=== PATIENT | male | born 1955 | race Caucasian/White ===

== ENCOUNTER 2018-06-11 14:30 | Emergency (ER) | payer OTHER ==
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
[2018-06-11 16:18] VITALS: TEMP 98.1
[2018-06-11 16:20] VITALS: BP 116/74; O2SAT 99
== END 2018-06-11 16:14 | disposition home or self-care (01) ==
LOC: ER 14:30
DX: M79.1 Myalgia (principal); V49.40XA Driver injured in collision with unspecified motor vehicles in traffic accident, initial encounter; Z91.030 Bee allergy status
CPT/HCPCS: 99281

== ENCOUNTER 2018-06-28 15:00 | Emergency (ER) | payer OTHER ==
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
[2018-06-28] MEDS ORDERED: HYDROCODONE/APAP 10/325 TAB ONE (16:40)
[2018-06-28 17:00] VITALS: TEMP 98.7; O2SAT 100
[2018-06-28 17:01] VITALS: BP 143/82
== END 2018-06-28 16:44 | disposition home or self-care (01) ==
LOC: ER 15:00
DX: S13.4XXA Sprain of ligaments of cervical spine, initial encounter (principal); S20.229A Contusion of unspecified back wall of thorax, initial encounter; V49.49XA Driver injured in collision with other motor vehicles in traffic accident, initial encounter; Y92.410 Unspecified street and highway as the place of occurrence of the external cause; J44.9 Chronic obstructive pulmonary disease, unspecified; I10 Essential (primary) hypertension
CPT/HCPCS: 70450; 71046; 72125; 99284

== ENCOUNTER 2018-08-06 16:26 | Observation (INO) | payer OTHER ==
--- NOTE | 2018-08-06 18:41 | RAD REPORT ---
EXAM DESCRIPTION: RAD - Chest Single View - 08/06/2018 6:35 pm CLINICAL HISTORY: lower extremity swelling Chest pain. COMPARISON: Chest Pa And Lat (2 Views) dated 06/28/2018; Chest Single View dated 10/06/2017; Chest Sin gle View dated 04/22/2016; Chest Single View dated 03/14/2016 FINDINGS: Portable technique limits examination quality. Mild interstitial pulmonary edema. The heart is normal size. No displaced fractures. IMPRESSION: Mild CHF versus volume overload pattern.
[2018-08-06 18:57] LABS: Absolute Lymphocytes (CBC) 0.8 K/uL (0.7-4.9); Absolute Monocytes 0.5 K/uL (0.1-1.3); Absolute Neutrophil 1.1 K/uL (1.8-8.0); Basophils % 1.2 % (0-1.3); Eosinophils % 5.2 % (0-4.4); Hematocrit 35.9 % (39.6-49.0); Lymphocytes % 29.6 % (15.3-44.8); MCH 28.6 pg (27.0-35.0); MCV 84.4 fL (80-100); MPV 8.4 fL (7.6-11.3); Monocytes % 20.3 % (3.3-12.3); RBC Red Blood Cell Count 4.26 M/uL (4.33-5.43)
[2018-08-06 18:58] LABS: Protime INR 1.04
--- NOTE | 2018-08-06 19:19 | RAD REPORT ---
EXAM DESCRIPTION: US - Extrem Venous W Compress Dhiraj - 08/06/2018 7:10 pm CLINICAL HISTORY: lower extremity swelling Bilateral leg edema and swelling. COMPARISON: No comparisons TECHNIQUE: Real-time sonographic interrogation of the left and right lower extremity deep venous sys tems was performed. FINDINGS: Normal compressibility, flow augmentation, phasic flow and spontaneous flow is identified in both the left and right lower extremity deep venous systems. IMPRESSION: No sonographic evidence of left or right lower extremity deep venous thrombosis.
[2018-08-06 19:26] LABS: ALT/SGPT 266 U/L (12-78); AST/SGOT 268 U/L (15-37); Albumin 3.2 g/dL (3.4-5.0); Alkaline Phosphatase 174 U/L (45-117); BUN Blood Urea Nitrogen 9 mg/dL (7-18); Bicarbonate 28 mmol/L (21-32); Bilirubin Direct 0.5 mg/dL (0-0.2); Bilirubin Total 0.8 mg/dL (0.2-1.0); Glucose Level 88 mg/dL (74-106); Magnesium 2.1 mg/dL (1.8-2.4); NT PRO-BNP 2801 pg/mL (<125); Potassium 4.1 mmol/L (3.5-5.1); Protein, Total 7.3 g/dL (6.4-8.2); Sodium Level 141 mmol/L (136-145); Troponin (Emerg Dept Use Only) < 0.02 ng/mL (0.0-0.045)
--- NOTE | 2018-08-06 20:55 | ER ---
Nurse's Notes [facility] Name: Chetan Case Age: 63 yrs Sex: Male : 1955 Arrival Date: 08/06/2018 Time: 16:31 Bed 27 Private MD: John Albright H Diagnosis: Pulmonary edema;Unspecified combined systolic (congestive) and diastolic (congestive) heart failure;Liver disease, unspecified Presentation: 08/06 16:44 Presenting complaint: Patient states: Swelling to bilateral lower legs that started aj yesterday morning with SOB. Patient appears drowsy in triage. Patient and his appear sedated. is falling asleep sitting up in triage while reading the newspaper. Transition of care: patient was not received from another setting of care. Onset of symptoms was August 05, 2018. Risk Assessment: Do you want to hurt yourself or someone else? Patient reports no desire to harm self or others. Initial Sepsis Screen: Does the patient meet any 2 criteria? No. Patient's initial sepsis screen is negative. Does the patient have a suspected source of infection? No. Patient's initial sepsis screen is negative. Care prior to arrival: None. 16:44 Method Of Arrival: Ambulatory aj 16:44 Acuity: OCHOA 3 aj Triage Assessment: 16:46 General: Appears in no apparent distress. comfortable, Behavior is calm, cooperative, aj appropriate for age, drowsy. Pain: Denies pain. Neuro: Level of Consciousness is awake, alert, obeys commands, Oriented to person, place, time, situation, Appropriate for age. Cardiovascular: Edema is 2+ to left ankle, left foot, right ankle and right foot. Respiratory: Airway is patent Respiratory effort is even, unlabored, Respiratory pattern is regular, symmetrical. Respiratory: Reports shortness of breath. Derm: Skin is intact, is healthy with good turgor, Skin is pink, warm \T\ dry. normal. Musculoskeletal: Swelling present in right leg and left leg. Historical: - Allergies: 16:46 Bees; aj - Home Meds: 16:46 finasteride 1 mg Oral tab [Active]; hydrocodone-acetaminophen 7.5-325 mg oral tab every aj 4-6 hours [Active]; inhaler [Active]; Multiple Vitamins Oral tab [Active]; pantoprazole 40 mg Oral TbEC 1 tab once daily [Active]; Xanax 0.5 mg Oral tab [Active]; - PMHx: 16:46 COPD; Hypertension; Chronic pain; aj - PSHx: 16:46 Ablation; aj - Immunization history:: Adult Immunizations up to date. - Social history:: Smoking status: Patient uses tobacco products, smokes one-half pack cigarettes per day. - Ebola Screening: : Patient negative for fever greater than or equal to 101.5 degrees Fahrenheit, and additional compatible Ebola Virus Disease symptoms Patient denies exposure to infectious person Patient denies travel to an Ebola-affected area in the 21 days before illness onset No symptoms or risks identified at this time. Screenin:03 Abuse screen: Denies threats or abuse. Denies injuries from another. Nutritional rv screening: No deficits noted. Tuberculosis screening: No symptoms or risk factors identified. Fall Risk None identified. Assessment: 17:01 General: Appears in no apparent distress. comfortable, Behavior is calm, cooperative, rv drowsy. Pain: Denies pain. Neuro: Level of Consciousness is awake, alert, obeys commands, Oriented to person, place, time, situation. Cardiovascular: Capillary refill < 3 seconds. Respiratory: Airway is patent. GI: No signs and/or symptoms were reported involving the gastrointestinal system. : No signs and/or symptoms were reported regarding the genitourinary system. EENT: No signs and/or symptoms were reported regarding the EENT system. Derm: Skin with poor turgor. Vital Signs: 16:46 BP 122 / 74; Pulse 61; Resp 20; Temp 97.9; Pulse Ox 96% on R/A; Weight 90.72 kg; Height aj 5 ft. 9 in. (175.26 cm); 18:35 BP 106 / 61; Pulse 86; Pulse Ox 96% on R/A; rv 22:54 BP 127 / 85; Pulse 56; Pulse Ox 99% on R/A; rv 16:46 Body Mass Index 29.53 (90.72 kg, 175.26 cm) aj ED Course: 16:31 Patient arrived in ED. mr 16:31 John Albright DO is Private Physician. mr 16:45 Triage completed. aj 16:46 Arm band placed on left wrist. Patient placed in waiting room, Patient notified of wait aj time. 17:03 Patient has correct armband on for positive identification. Placed in gown. Bed in low rv position. Call light in reach. Side rails up X2. Adult w/ patient. Pulse ox on. NIBP on. 17:45 Parminder Porras PA is PHCP. cp 17:45 Vipin Thomas MD is Attending Physician. cp 18:30 Inserted saline lock: 20 gauge in right forearm, using aseptic technique. Blood rv collected. 18:30 Initial lab(s) drawn, by me, sent to lab. EKG done, by ED staff, X-ray(s) taken. rv 18:33 X-ray completed. Portable x-ray completed in exam room. Patient tolerated procedure ag1 well. 18:34 XRAY Chest (1 view) In Process Unspecified. EDMS 19:07 Ultrasound completed. Patient tolerated well. sg3 19:10 US Extremity Venous W Compression Dhiraj In Process Unspecified. EDMS 20:05 AMMONIA Sent. rv 20:54 Keri Mathur MD is Hospitalizing Provider. cp 22:51 No provider procedures requiring assistance completed. Patient admitted, IV remains in rv place. intact. Administered Medications: 21:11 Drug: Lasix 20 mg Route: IVP; Site: right forearm; rv 22:51 Follow up: Response: No adverse reaction rv Outcome: 20:55 Decision to Hospitalize by Provider. cp 22:52 Admitted to Tele accompanied by [facility], via wheelchair, room 401, with chart, Report rv called to sahil 22:52 Condition: good 22:52 Instructed on the need for admit. 23:09 Patient left the ED. rv Signatures: Dispatcher [employer] EDMS Pattie Turpin, Hyun Pavon RN Reji Palomoley ag1 Parminder Porras PA PA cp Godinez, Sarah sg3 Brant Courtney RN RN rv
--- NOTE | 2018-08-06 20:56 | EDPHYS ---
Physician Documentation [facility] Name: Chetan Case Age: 63 yrs Sex: Male : 1955 Arrival Date: 08/06/2018 Time: 16:31 Bed 27 Private MD: John Albright H ED Physician Vipin Thomas HPI: 08/06 18:20 This 63 yrs old Male presents to ER via Ambulatory with complaints of Feet cp Swelling. 18:20 The patient has shortness of breath with light activity. cp 18:20 Onset: The symptoms/episode began/occurred gradually, and became worse yesterday. cp 18:20 Duration: The symptoms are continuous, and are steadily getting worse. cp Historical: - Allergies: 16:46 Bees; aj - Home Meds: 16:46 finasteride 1 mg Oral tab [Active]; hydrocodone-acetaminophen 7.5-325 mg oral tab every aj 4-6 hours [Active]; inhaler [Active]; Multiple Vitamins Oral tab [Active]; pantoprazole 40 mg Oral TbEC 1 tab once daily [Active]; Xanax 0.5 mg Oral tab [Active]; - PMHx: 16:46 COPD; Hypertension; Chronic pain; aj - PSHx: 16:46 Ablation; aj - Immunization history:: Adult Immunizations up to date. - Social history:: Smoking status: Patient uses tobacco products, smokes one-half pack cigarettes per day. - Ebola Screening: : Patient negative for fever greater than or equal to 101.5 degrees Fahrenheit, and additional compatible Ebola Virus Disease symptoms Patient denies exposure to infectious person Patient denies travel to an Ebola-affected area in the 21 days before illness onset No symptoms or risks identified at this time. ROS: 18:25 Constitutional: Negative for body aches, chills, fever, poor PO intake. cp 18:25 Eyes: Negative for injury, pain, redness, and discharge. cp 18:25 ENT: Negative for drainage from ear(s), ear pain, sore throat, difficulty swallowing, difficulty handling secretions. 18:25 Cardiovascular: Positive for edema, Negative for chest pain, palpitations. 18:25 Respiratory: Positive for shortness of breath, on exertion. Negative for cough, pleurisy, wheezing. 18:25 Abdomen/GI: Negative for abdominal pain, nausea, vomiting, and diarrhea, constipation, anorexia, black/tarry stool, rectal bleeding. 18:25 Skin: Negative for cellulitis, rash. 18:25 Neuro: Negative for altered mental status, headache, syncope, near syncope, weakness. 18:25 All other systems are negative. Exam: 18:33 Constitutional: The patient appears in no acute distress, alert, awake, cp non-diaphoretic, non-toxic, well developed, well nourished. 18:33 Head/Face: Normocephalic, atraumatic. Eyes: Pupils equal round and reactive to light, cp extra-ocular motions intact. Lids and lashes normal. Conjunctiva and sclera are non-icteric and not injected. Cornea within normal limits. Periorbital areas with no swelling, redness, or edema. ENT: Nares patent. No nasal discharge, no septal abnormalities noted. Tympanic membranes are normal and external auditory canals are clear. Oropharynx with no redness, swelling, or masses, exudates, or evidence of obstruction, uvula midline. Mucous membranes moist. 18:33 Chest/axilla: Inspection: normal, Palpation: is normal, no crepitus, no tenderness. 18:33 Cardiovascular: Rate: normal, Rhythm: regular, Pulses: Pulses are 2+ in right radial artery and left radial artery. Edema: pedal edema, that is moderate, ankle edema, that is moderate, JVD: is not appreciated. 18:33 Respiratory: the patient does not display signs of respiratory distress, Respirations: normal, no use of accessory muscles, no retractions, no splinting, no tachypnea, labored breathing, is not present, Breath sounds: decreased breath sounds, that are mild, are located in both bases, stridor, is not appreciated, wheezing: is not appreciated. 18:33 Abdomen/GI: Inspection: abdomen appears normal, Bowel sounds: active, all quadrants, Palpation: abdomen is soft and non-tender, in all quadrants, rebound tenderness, is not appreciated, voluntary guarding, is not appreciated, involuntary guarding, is not appreciated. 18:33 Skin: cellulitis, is not appreciated, no rash present. 18:33 Neuro: Orientation: to person, place \T\ time. Mentation: able to follow commands, slow to respond, Cerebellar function: is grossly normal, Motor: moves all fours, strength is normal, Sensation: no obvious gross deficits, Gait: is steady. 18:50 ECG was reviewed by the Attending Physician. cp Vital Signs: 16:46 BP 122 / 74; Pulse 61; Resp 20; Temp 97.9; Pulse Ox 96% on R/A; Weight 90.72 kg; Height aj 5 ft. 9 in. (175.26 cm); 18:35 BP 106 / 61; Pulse 86; Pulse Ox 96% on R/A; rv 22:54 BP 127 / 85; Pulse 56; Pulse Ox 99% on R/A; rv 16:46 Body Mass Index 29.53 (90.72 kg, 175.26 cm) aj MDM: 17:45 Patient medically screened. cp 19:00 Differential diagnosis: CHF exacerbation, Chronic Obstructive Pulmonary Disease cp Myocardial Infarction pneumonia, pulmonary edema, Unstable Angina liver failure. 20:50 Data reviewed: vital signs, nurses notes, lab test result(s), EKG, radiologic studies, cp plain films, ultrasound, and as a result, I will admit patient. 20:50 Test interpretation: by ED physician or midlevel provider: ECG, plain radiologic cp studies. 20:55 Physician consultation: Keri Mathur MD was contacted at 20:55, regarding admission, cp to the telemetry unit. patient's condition. 08/06 18:18 Order name: Basic Metabolic Panel; Complete Time: 19:45 cp 08/06 18:18 Order name: CBC with Diff; Complete Time: 19:45 cp 08/06 19:46 Interpretation: Normal except: WBC 2.5; RBC 4.26; HGB 12.2; HCT 35.9; MCV 84.4; RDW cp 15.8; MN% 20.3; EOSINOPHIL % 5.2; NEUT A 1.1. 08/06 18:18 Order name: LFT's; Complete Time: 19:45 cp 08/06 20:12 Interpretation: Normal except: AST 268; ALT 266; ALK 174; BILID 0.5; ALB 3.2; GLOB 4.1; cp A/G 0.8. 08/06 18:18 Order name: Magnesium; Complete Time: 19:45 cp 08/06 18:18 Order name: NT PRO-BNP; Complete Time: 19:45 cp 08/06 19:46 Interpretation: Abnormal: NT PRO-BNP 2801. cp 08/06 18:18 Order name: PT-INR; Complete Time: 19:45 cp 08/06 18:18 Order name: Troponin (emerg Dept Use Only); Complete Time: 19:45 cp 08/06 18:18 Order name: XRAY Chest (1 view); Complete Time: 19:45 cp 08/06 18:18 Order name: US Extremity Venous W Compression Dhiraj; Complete Time: 19:45 cp 08/06 19:47 Order name: ETOH Level cp 08/06 19:47 Order name: US Abdomen Limited cp 08/06 19:47 Order name: AMMONIA cp 08/06 19:47 Order name: Alcohol Serum/Plasma; Complete Time: 20:50 EDMS 08/06 19:47 Order name: Ammonia; Complete Time: 20:50 EDMS 08/06 18:18 Order name: EKG; Complete Time: 18:19 cp 08/06 18:18 Order name: Cardiac monitoring; Complete Time: 18:35 cp 08/06 18:18 Order name: EKG - Nurse/Tech; Complete Time: 18:35 cp 08/06 18:18 Order name: IV Saline Lock; Complete Time: 18:35 cp 08/06 18:18 Order name: Labs collected and sent; Complete Time: 18:35 cp 08/06 18:18 Order name: O2 Per Protocol; Complete Time: 18:35 cp 08/06 18:18 Order name: O2 Sat Monitoring; Complete Time: 18:35 cp 08/06 22:20 Order name: US; Complete Time: 22:26 EDMS EC:50 Rate is 51 beats/min. Rhythm is regular. AK interval is normal. QRS interval is normal. cp QT interval is normal. T waves are Inverted in lead V3. Interpreted by me. Reviewed by me. Administered Medications: 21:11 Drug: Lasix 20 mg Route: IVP; Site: right forearm; rv 22:51 Follow up: Response: No adverse reaction rv Disposition: 08/07 13:22 Co-signature as Attending Physician, Vipin Thomas MD I agree with the assessment and kdr plan of care. Disposition: 08/06/18 20:55 Hospitalization ordered by Keri Mathur for Inpatient Admission. Preliminary diagnosis are Pulmonary edema, Unspecified combined systolic (congestive) and diastolic (congestive) heart failure, Liver disease, unspecified. - Bed requested for Telemetry/MedSurg (Inpatient). - Status is Inpatient Admission. rv - Condition is Stable. - Problem is new. - Symptoms have improved. UTI on Admission? No Signatures: Dispatcher [employer] EDMS Barbara Dupont RN RN mw Myers, Amanda, RN RN aj Rittger, Kevin, MD MD kdr Page, Corey, PA PA cp Brant Courtney RN RN rv Corrections: (The following items were deleted from the chart) 08/06 20:55 20:55 Hospitalization Ordered by Keri Mathur MD for Inpatient Admission. Preliminary cp diagnosis is Pulmonary edema; Unspecified combined systolic (congestive) and diastolic (congestive) heart failure. Bed requested for Telemetry/MedSurg (Inpatient). Status is Inpatient Admission. Condition is Stable. Problem is new. Symptoms have improved. UTI on Admission? No. cp 21:25 20:55 08/06/2018 20:55 Hospitalization Ordered by Keri Mathur MD for Inpatient mw Admission. Preliminary diagnosis is Pulmonary edema; Unspecified combined systolic (congestive) and diastolic (congestive) heart failure; Liver disease, unspecified. Bed requested for Telemetry/MedSurg (Inpatient). Status is Inpatient Admission. Condition is Stable. Problem is new. Symptoms have improved. UTI on Admission? No. cp 23:09 21:25 08/06/2018 20:55 Hospitalization Ordered by Keri Mathur MD for Inpatient rv Admission. Preliminary diagnosis is Pulmonary edema; Unspecified combined systolic (congestive) and diastolic (congestive) heart failure; Liver disease, unspecified. Bed requested for Telemetry/MedSurg (Inpatient). Status is Inpatient Admission. Condition is Stable. Problem is new. Symptoms have improved. UTI on Admission? No. 08/07 02:17 08/06 18:20 Onset: The symptoms/episode began/occurred 2 week(s) ago, cp cp
[2018-08-06] MEDS ORDERED: FUROSEMIDE 20 MG/ 2ML VIAL ONE (21:11)
--- NOTE | 2018-08-06 22:19 | RAD REPORT ---
EXAM DESCRIPTION: US - Abdomen Exam Limited - 08/06/2018 10:08 pm CLINICAL HISTORY: elevated liver enzymes COMPARISON: ABDOMINAL EXAM LIMITED dated 03/26/2010 FINDINGS: The gallbladder demonstrates no gallstones. Gallbladder wall appears edematous and thicken ed measuring up to 13 mm. The common bile duct is normal measuring 4 mm. The liver demonstrates no findings of intrahepatic biliary dilatation. IMPRESSION: No gallstone is visualized. Thickened edematous gallbladder wall measuring up to 13 mm. This may be secondary to acalculous grover cystitis, hepatic dysfunction or hypoalbuminemia.
[2018-08-07] MEDS ORDERED: ONDANSETRON 4 MG/2 ML VIAL IV PRN (01:20)
[2018-08-07] MEDS ORDERED: CARISOPRODOL 350 MG TAB PO PRN (01:24)
[2018-08-07] MEDS ORDERED: ALBUTEROL INHALER 60 PUFF/8 GM IH PRN (01:24)
[2018-08-07] MEDS ORDERED: HYDROCODONE/APAP 10/325 TAB PO PRN (01:24)
[2018-08-07 01:56] VITALS: BMI 31.2
[2018-08-07 04:48] LABS: Absolute Lymphocytes (CBC) 1.1 K/uL (0.7-4.9); Absolute Monocytes 0.6 K/uL (0.1-1.3); Absolute Neutrophil 1.3 K/uL (1.8-8.0); Basophils % 1.4 % (0-1.3); Eosinophils % 6.4 % (0-4.4); Hematocrit 33.1 % (39.6-49.0); Lymphocytes % 32.2 % (15.3-44.8); MCH 28.4 pg (27.0-35.0); MCV 84.4 fL (80-100); MPV 8.2 fL (7.6-11.3); Monocytes % 19.1 % (3.3-12.3); RBC Red Blood Cell Count 3.92 M/uL (4.33-5.43)
[2018-08-07 05:04] LABS: ALT/SGPT 254 U/L (12-78); AST/SGOT 246 U/L (15-37); Albumin 3.2 g/dL (3.4-5.0); Alkaline Phosphatase 181 U/L (45-117); BUN Blood Urea Nitrogen 13 mg/dL (7-18); Bicarbonate 29 mmol/L (21-32); Bilirubin Total 0.9 mg/dL (0.2-1.0); Glucose Level 89 mg/dL (74-106); HDL Cholesterol 59 mg/dL (40-60); LDL Cholesterol, Calculated 49 (<130); Magnesium 2.1 mg/dL (1.8-2.4); NT PRO-BNP 2671 pg/mL (<125); Phosphorus 2.3 mg/dL (2.5-4.9); Potassium 3.7 mmol/L (3.5-5.1); Protein, Total 7.2 g/dL (6.4-8.2); Sodium Level 140 mmol/L (136-145); Troponin I < 0.02 ng/mL (0.0-0.045)
[2018-08-07 05:05] VITALS: O2SAT 98
[2018-08-07] MEDS ORDERED: POTASSIUM PHOS IN 0.9 % NACL 15 MMOL/250 ML BAG IV ONE (05:16)
[2018-08-07 05:35] LABS: RBC Red Blood Cell Count 4.09 M/uL (4.33-5.43)
[2018-08-07 06:13] LABS: Folic Acid, (Folate) 9.3 ng/mL (3.1-17.5)
[2018-08-07] MEDS: FUROSEMIDE 40 MG/4 ML VIAL IV SCH ×2 (06:29→09:13)
[2018-08-07 07:32] LABS: Urine Appearance CLEAR; Urine Bilirubin NEGATIVE (NEG); Urine Blood NEGATIVE (NEG); Urine Color YELLOW; Urine Glucose NEGATIVE (NEG); Urine Protein NEGATIVE (NEG)
[2018-08-07 07:38] LABS: Urine Microscopic Reflex NO UMIC
[2018-08-07 07:50] LABS: Blood Morphology Comment NOT SEEN (NOT SEEN); Platelet Estimate ADEQ
--- NOTE | 2018-08-07 08:33 | EKG ---
Test Date: 2018-08-07 Test Time: 00:28:16 Water Softener Installer: KEKE MEASUREMENT RESULTS: Intervals: Rate: 50 VT: 168 QRSD: 82 QT: 474 QTc: 432 [place]: P: 71 VT: 168 QRS: 90 T: 42 INTERPRETIVE STATEMENTS: Sinus bradycardia with premature supraventricular complexes Rightward axis Borderline ECG Compared to ECG 04/22/2016 05:50:34 Atrial premature complex(es) now present Electronically Signed On 08-07-18 08:32:59 CDT by John Devries
[2018-08-07 08:49] VITALS: BP 140/86; TEMP 97.4
[2018-08-07] MEDS ORDERED: INFLUENZA VACCINE (for 3y+) 0.5 ML DOSE IMVAC ONE (09:00)
[2018-08-07] MEDS ORDERED: LOSARTAN POTASSIUM 50 MG TABLET PO SCH (09:00)
[2018-08-07] MEDS ORDERED: METOPROLOL TAR 50 MG TAB PO SCH (09:00)
[2018-08-07] MEDS ORDERED: PANTOPRAZOLE 40MG TABLET PO SCH (09:00)
[2018-08-07] MEDS ORDERED: ENOXAPARIN 40 MG/0.4 ML SQ SCH (09:00)
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
--- NOTE | 2018-08-07 13:42 | CON ---
History Of Present Illness: Mr. Whitman is 63. He is known not to have coronary heart disease. He has liver dysfunction. He probably has alcoholic hepatic steatosis. He had a mildly elevated ammonia l evel at 75 when he first came in, today it is 50. He came into the hospital because he had edema of his ankles. He has noted it for several weeks, perhaps as long as a month, but decided yesterday to come. He denies to be having any chest pain. He admits sometimes he will tell the emergency room he is having chest pain, so he does not wait in the emergency room for very long. He has a history of atrial fibrillation, was cardioverted, and then underwent ablation, now remains in sinus rhythm. He has a problem with heavy alcohol abuse and had an alcohol level of 80 when he actually [facility]. Outpatient Medications: Hydrocodone with acetaminophen, Protonix, carisoprodol, alprazolam, albutero l. Social History: He does not use tobacco. His alcohol use amount is vague. Allergies: HE HAS NO DRUG ALLERGIES. Physical Examination: General: 5 feet 9 inch, 211 pounds. HEENT: Normal. Lungs: Clear. Cardiac: Normal. Abdomen: Soft. Extremities: Normal. Diagnostic Data: EKG, sinus barrett with a PAC, otherwise it is normal. Impression: Mr. Whitman is to cut down his sodium intake and his alcohol intake. I gave him Lasix to u se as needed. I would recommend no more than 1 or 2 doses a week, and he can see Dr. Monsalve in the office and redo an echocardiogram and stress test as we see fit to help him. He has a gallbladder th at looks very ill. He has had an ultrasound of his leg veins, it is negative for DVT. I think it is perfectly fine for us to send him home. ANIL Voice ID: [id number] Report ID: [id number]
[2018-08-07] MEDS ORDERED: ALPRAZOLAM 1 MG TABLET PO SCH (21:00)
--- NOTE | 2018-08-09 10:15 | EKG ---
Test Date: 2018-08-06 Test Time: 18:42:59 Research Recruiter: MEASUREMENT RESULTS: Intervals: Rate: 51 IN: 164 QRSD: 94 QT: 480 QTc: 442 [place]: P: 79 IN: 164 QRS: 77 T: 26 INTERPRETIVE STATEMENTS: Sinus bradycardia Otherwise normal ECG Compared to ECG 04/22/2016 05:50:34 Right-axis deviation no longer present Electronically Signed On 08-09-18 10:15:31 CDT by John Devries
== END 2018-08-07 11:11 | disposition home or self-care (01) ==
LOC: ER 16:26 → INTOOBSV 21:39 → ERHOLD 21:39 → 4TH 23:01
PROVIDERS: ADMIT Hospitalist; ATTEND Hospitalist
DX: I11.0 Hypertensive heart disease with heart failure (principal); I50.21 Acute systolic (congestive) heart failure; I48.91 Unspecified atrial fibrillation; Z23 Encounter for immunization
CPT/HCPCS: 36415; 71045; 76705; 80048; 80053; 80061; 80076; 80320; 81003; 82140; 82607; 82746; 83540; 83735; 83880; 84100; 84484; 85025; 85044; 85610; 93005; 93970; 96374; 99285; G0008; J1650; J1940; Q2035

== ENCOUNTER 2018-11-28 09:16 | Emergency (ER) | payer OTHER ==
[2018-11-28 10:05] LABS: Absolute Lymphocytes (CBC) 0.8 K/uL (0.7-4.9); Absolute Monocytes 0.8 K/uL (0.1-1.3); Absolute Neutrophil 2.7 K/uL (1.8-8.0); Eosinophils % 3.6 % (0-4.4); Hematocrit 31.6 % (39.6-49.0); MPV 8.5 fL (7.6-11.3); RBC Red Blood Cell Count 3.71 M/uL (4.33-5.43)
[2018-11-28 10:10] LABS: Protime INR 1.13
[2018-11-28 10:27] LABS: Albumin 3.1 g/dL (3.4-5.0); Bilirubin Direct 0.3 mg/dL (0-0.2); Bilirubin Total 0.5 mg/dL (0.2-1.0); Magnesium 2.2 mg/dL (1.8-2.4); Potassium 4.4 mmol/L (3.5-5.1); Protein, Total 7.8 g/dL (6.4-8.2); Troponin (Emerg Dept Use Only) 0.34 ng/mL (0.0-0.045)
--- NOTE | 2018-11-28 11:10 | RAD REPORT ---
EXAM DESCRIPTION: RAD - Chest Single View - 11/28/2018 10:03 am CLINICAL HISTORY: DYSPNEA Chest pain. COMPARISON: Chest Single View dated 08/06/2018; Chest Pa And Lat (2 Views) dated 06/28/2018; Chest Sin gle View dated 10/06/2017; Chest Single View dated 04/22/2016 FINDINGS: Portable technique limits examination quality. The lungs are grossly clear. The heart is mildly enlarged. No displaced fractures.Vertebroplasty ceme nt noted in a lower thoracic vertebral body. IMPRESSION: Mild cardiomegaly.
--- NOTE | 2018-11-28 11:20 | ER ---
Nurse's Notes [facility] Name: Chetan Case Age: 63 yrs Sex: Male : 1955 Arrival Date: 11/28/2018 Time: 09:18 Bed 8 Private MD: Diagnosis: Combined systolic (congestive) and diastolic (congestive) heart failure;Acute kidney failure;Shortness of breath;Bradycardia, unspecified Presentation: 11/28 09:20 Presenting complaint: EMS states: 63YO WM P/W CP AND SOB SINCE AM, 1 WK S/P STENT. PT bp DUSKY AND HYPOXIC NO SCENE, PER EMS. Transition of care: patient was not received from another setting of care. Onset of symptoms is unknown. Risk Assessment: Do you want to hurt yourself or someone else? Patient reports no desire to harm self or others. Initial Sepsis Screen: Does the patient meet any 2 criteria? No. Patient's initial sepsis screen is negative. Does the patient have a suspected source of infection? No. Patient's initial sepsis screen is negative. Care prior to arrival: IV initiated. 20 GA, in the left antecubital area, forearm, Glucose check: 122. 09:20 Method Of Arrival: EMS: [facility] bp 09:20 Acuity: OCHOA 2 bp Triage Assessment: 09:20 General: Appears distressed, comfortable, obese, Behavior is calm, cooperative, bp appropriate for age. Pain: Denies pain. EENT: No deficits noted. Neuro: Level of Consciousness is awake, obeys commands, lethargic, Oriented to person, place, time, situation, Appropriate for age. Cardiovascular: Rhythm is sinus bradycardia. Respiratory: Reports shortness of breath at rest Onset: The symptoms/episode began/occurred this morning, the patient has severe shortness of breath. GI: No signs and/or symptoms were reported involving the gastrointestinal system. : No signs and/or symptoms were reported regarding the genitourinary system. Derm: Skin is pale. Musculoskeletal: Circulation, motion, and sensation intact. Range of motion: intact in all extremities. Historical: - Allergies: 09:36 Bees; bp - Home Meds: 09:55 hydrocodone-acetaminophen 7.5-325 mg Oral tab every 4-6 hours [Active]; Xanax 1 mg oral bp tab 1 tab nightly [Active]; pantoprazole 40 mg Oral TbEC 1 tab once daily [Active]; furosemide 40 mg Oral tab 1 tab once daily [Active]; albuterol sulfate 90 mcg/actuation Nebulizer HFAA 1 puff every 6 hours [Active]; Carisoprodol Oral 1 tab every 6 hours [Active]; - PMHx: 09:36 Chronic pain; Hypertension; COPD; bp 09:55 Myocardial infarction; CHF; Atrial Fib; bp - PSHx: 09:36 CABG; bp - Immunization history:: Adult Immunizations up to date. - Social history:: Smoking status: Patient/guardian denies using tobacco. - Ebola Screening: : Patient negative for fever greater than or equal to 101.5 degrees Fahrenheit, and additional compatible Ebola Virus Disease symptoms Patient denies exposure to infectious person Patient denies travel to an Ebola-affected area in the 21 days before illness onset No symptoms or risks identified at this time. Screenin:38 Abuse screen: Denies threats or abuse. Denies injuries from another. Nutritional bp screening: No deficits noted. Tuberculosis screening: No symptoms or risk factors identified. Fall Risk None identified. Assessment: 09:20 General: SEE TRIAGE NOTE. Cardiovascular: Rhythm is sinus bradycardia. Respiratory: bp Airway is patent Respiratory effort is even, shallow, Respiratory pattern is regular, symmetrical, Breath sounds are clear bilaterally. 11:30 Reassessment: CT CANCELLED 2/2 POOR GFR. TRANSFER IN PROCESS. bp 13:23 Reassessment: REPORT TO WENDY MCWILLIAMS AT [facility] FOR CCU 2, BED 16. TRANSPORT PENDING. bp Vital Signs: 09:36 BP 101 / 49; Pulse 41; Resp 8; Temp 98; Pulse Ox 80% on R/A; Weight 95.25 kg; Height 5 bp ft. 10 in. (177.80 cm); 09:57 BP 104 / 61; Pulse 41; Resp 8; Pulse Ox 97% ; bp 11:00 BP 95 / 63; Pulse 44; Resp 10; Pulse Ox 97% ; bp 12:00 BP 108 / 68; Pulse 42; Resp 8; Pulse Ox 86% ; bp 13:00 BP 124 / 83; Pulse 47; Resp 11; Pulse Ox 96% ; bp 09:36 Body Mass Index 30.13 (95.25 kg, 177.80 cm) bp ED Course: 09:18 Patient arrived in ED. bp 09:27 EKG done, by ED staff, reviewed by Parminder Benavidez MD. jb1 09:30 Stephanie Desir NP is PHCP. rh1 09:30 Parminder Benavidez MD is Attending Physician. rh1 09:33 Triage completed. bp 09:36 Arm band placed on. bp 09:38 Maintain EMS IV. Dressing intact. Good blood return noted. Site clean \\T\\ dry. Gauge \\T\\ bp site: 20 gauge left ac. 09:38 Patient has correct armband on for positive identification. Placed in gown. Bed in low bp position. Call light in reach. Side rails up X2. 09:51 Radiology exam delayed due to lab results not completed at this time. (BUN/Creatinine). mw3 09:53 Wally Joseph, RN is Primary Nurse. bp 10:03 XRAY Chest (1 view) In Process Unspecified. EDMS 11:[address] Sheriff's answering service at [phone] for Stephanie HEATH eb regarding one of his patients/ given doctor's cell number to call. 11:[address] Sheriff's cell phone and connected with Stephanie HEATH for patient eb consultation. 11:18 initiated a transfer with Zechariah at the [facility] transfer center. eb 12:18 called and spoke with Zechariah at the [facility] transfer center to get an update on the status of eb the transfer to [facility]/ Per Zechariah Sheriff is "suspended privileges " and can't accept the patient in transfer/. 12:19 initiated a transfer with Zulay at the [facility] transfer center. eb 12:[address] Cuellar with Stephanie for patient transfer consultation. eb 12:53 administrative approval given by Zulay MCWILLIAMSpiece dyerinventory control coordinator/ Dr. Cuellar has eb accepted the patient in transfer/ pt going to the CCU2 bed 16/ report to be called to [phone]. 13:53 No provider procedures requiring assistance completed. Patient transferred, IV remains bp in place. Administered Medications: 11:00 Drug: NS 0.9% 250 ml Route: IV; Rate: 250 ml/hr; Site: left antecubital; bp 11:27 Follow up: IV Status: Infusion continued upon transfer bp 11:26 Drug: Aspirin Chewable Tablet 324 mg Route: PO; bp 11:27 Follow up: Response: No adverse reaction bp 12:45 Drug: Lasix 20 mg Route: IVP; Site: left antecubital; bp 13:14 Follow up: Response: No adverse reaction bp 12:45 Drug: Lovenox 40 mg Route: Sub-Q; Site: right lower abdomen; bp 13:14 Follow up: Response: No adverse reaction bp Outcome: 11:19 ER care complete, transfer ordered by . rh1 13:52 Transferred by ground EMS to [facility], Transfer form completed. bp 13:52 Condition: stable 13:52 Instructed on the need for transfer. 13:54 Patient left the ED. bp Signatures: Dispatcher [employer] EDThomas Shah jb1 Stephanie Desir NP SIZE ROLLER OPERATOR rh1 Wally Joseph RN RN Meghan Thomas Michelle mw3
--- NOTE | 2018-11-28 11:20 | EDPHYS ---
Physician Documentation [facility] Name: Chetan Case Age: 63 yrs Sex: Male : 1955 Arrival Date: 11/28/2018 Time: 09:18 Bed 8 Private MD: ED Physician Parminder Benavidez HPI: 11/28 09:36 This 63 yrs old Male presents to ER via EMS with complaints of Shortness Of rh1 Breath. 09:36 The patient has shortness of breath with light activity. Onset: The symptoms/episode rh1 began/occurred just prior to arrival. Duration: The symptoms are chronic, for 6 month(s). The patient's shortness of breath is aggravated by exertion, light activity, walking, is alleviated by rest, application of supplemental oxygen. Associated signs and symptoms: Pertinent positives: near syncope, Pertinent negatives: chest pain, non-productive cough, productive cough, dizziness, fever, hemoptysis, loss of consciousness. Severity of symptoms: At their worst the symptoms were moderate in the emergency department the symptoms have improved. The patient has experienced similar episodes in the past. The patient has been recently seen by a physician: Heart cath approx. [address] Huston/Jordan, at [facility]. Reports stented LAD, unable to stent another area that was needed, has follow up appt in 4 days, unknown if in [place]. He was walking down his hallway at home to manage a problem with pet cats, and on the way "ran out of air," and had near syncopal episode. He leaned onto an ice chest, and lowered himself to the ground, scared his who called EMS. He denies any SINGH, no head trauma, no LOC. Upon EMS arrival reported to have been dusky, O2 sat in 70s. He increased to high 80s on O2 TRANSIT CLERK, and low 90s while in ER now. Currently he denies any SOB, no chest pain with episode. Reports mild increased swelling at bilateral feet since yesterday. Reports not currently taking lasix, unable to report why. He did take 1 mg xanax last night, hydrocodone this am. Last EOTH 2 - 3 days ago. Overall awake, and alert, mouth dry with slurred/thick speech.. Historical: - Allergies: 09:36 Bees; bp - Home Meds: 09:55 hydrocodone-acetaminophen 7.5-325 mg Oral tab every 4-6 hours [Active]; Xanax 1 mg oral bp tab 1 tab nightly [Active]; pantoprazole 40 mg Oral TbEC 1 tab once daily [Active]; furosemide 40 mg Oral tab 1 tab once daily [Active]; albuterol sulfate 90 mcg/actuation Nebulizer HFAA 1 puff every 6 hours [Active]; Carisoprodol Oral 1 tab every 6 hours [Active]; - PMHx: 09:36 Chronic pain; Hypertension; COPD; bp 09:55 Myocardial infarction; CHF; Atrial Fib; bp - PSHx: 09:36 CABG; bp - Immunization history:: Adult Immunizations up to date. - Social history:: Smoking status: Patient/guardian denies using tobacco. - Ebola Screening: : Patient negative for fever greater than or equal to 101.5 degrees Fahrenheit, and additional compatible Ebola Virus Disease symptoms Patient denies exposure to infectious person Patient denies travel to an Ebola-affected area in the 21 days before illness onset No symptoms or risks identified at this time. ROS: 09:36 Constitutional: Negative for fever, chills rh1 09:36 Eyes: Negative for blurry vision. 09:36 Neck: Negative for pain with movement, pain at rest. 09:36 Cardiovascular: Positive for edema, Negative for chest pain, palpitations. 09:36 Respiratory: Positive for dyspnea on exertion, Negative for cough, hemoptysis, sputum production. 09:36 Abdomen/GI: Negative for abdominal pain, nausea, vomiting, and diarrhea. 09:36 Back: Negative for decreased range of motion, pain at rest, pain with movement, radiated pain. 09:36 MS/extremity: Positive for swelling, Negative for contusion, decreased range of motion, deformity, pain, paresthesias, tenderness, tingling. 09:36 Skin: Positive for ecchymosis, right chest, reports present after cath 2 weeks ago. 09:36 Neuro: Positive for near syncope, Negative for altered mental status, dizziness, loss of consciousness, numbness, syncope, tingling, weakness. Exam: 09:36 Constitutional: This is a well developed, well nourished patient who is awake, alert, rh1 and in no acute distress. Head/Face: Normocephalic, atraumatic. ENT: Nares patent. No nasal discharge, no septal abnormalities noted. Tympanic membranes are normal and external auditory canals are clear. Oropharynx with no redness, swelling, or masses, exudates, or evidence of obstruction, uvula midline. Mucous membranes moist. 09:36 Neck: Trachea midline, and no cervical lymphadenopathy. Supple, full range of motion without nuchal rigidity. No Meningismus. 09:36 Back: No spinal tenderness. No costovertebral tenderness. Full range of motion. 09:36 Eyes: Pupils: equal, right pupil is approximately 2 mm(s), left pupil is approximately 2 mm(s), Extraocular movements: intact throughout. 09:36 Chest/axilla: Inspection: ecchymosis, that is moderate, of the right clavicle and anterior aspect of right upper chest Palpation: crepitus, is not appreciated, tenderness, that is mild, of the right clavicle and anterior aspect of right upper chest, that totally reproduces the patient's complaints. 09:36 Cardiovascular: Rate: bradycardic, actual rate is 41 bpm, reports ongoing since prior to cath, Rhythm: regular, Pulses: no pulse deficits are appreciated, Pulses are 2+ in right radial artery, right posterior tibial artery, right dorsalis pedis artery, left radial artery, left posterior tibial artery and left dorsalis pedis artery. Heart sounds: gallop, S3 noted, Edema: pedal edema, that is mild, JVD: is not appreciated. 09:36 Cardiovascular: JVD: mild. 09:36 Respiratory: the patient does not display signs of respiratory distress, Respirations: normal, Breath sounds: decreased breath sounds, are located in both bases, fine crackles bilateral bases. 09:36 Abdomen/GI: Inspection: abdomen appears normal, bruising, is not seen, distension, is not seen, Bowel sounds: normal, in all quadrants, active, all quadrants, Palpation: abdomen is soft and non-tender, in all quadrants, Liver: tenderness, is not appreciated. 09:36 Back: Exam negative for ecchymosis 09:36 Skin: Appearance: Color: pale, Temperature: cool, Moisture: normal moisture, diaphoresis is not appreciated, no rash present. 09:36 Neuro: Orientation: appropriate for stated age, to person, place, time, situation, Mentation: lucid, able to follow commands, slow to respond, speech thickened, intermittent slurring, with repeat speech is clear, he reports change is because his mouth is dry, Motor: moves all fours, strength is 5/5 in all extremities, Sensation: is normal, no obvious gross deficits. Vital Signs: 09:36 BP 101 / 49; Pulse 41; Resp 8; Temp 98; Pulse Ox 80% on R/A; Weight 95.25 kg; Height 5 bp ft. 10 in. (177.80 cm); 09:57 BP 104 / 61; Pulse 41; Resp 8; Pulse Ox 97% ; bp 11:00 BP 95 / 63; Pulse 44; Resp 10; Pulse Ox 97% ; bp 12:00 BP 108 / 68; Pulse 42; Resp 8; Pulse Ox 86% ; bp 13:00 BP 124 / 83; Pulse 47; Resp 11; Pulse Ox 96% ; bp 09:36 Body Mass Index 30.13 (95.25 kg, 177.80 cm) bp MDM: 09:36 Patient medically screened. fredy 09:40 Data reviewed: EKG, I have discussed the patient's presentation/case with the attending [facility] Emergency Department Physician;. 10:59 Data reviewed: lab test result(s), I have discussed the patient's presentation/case rh1 with the attending Emergency Department Physician; and as a result, I will admit patient, . 11:00 Physician consultation: MD Huston was called at 11:00. [facility] 11:16 Data reviewed: vital signs, nurses notes, lab test result(s), EKG, radiologic studies, rh and as a result, I will admit patient. Data interpreted: Pulse oximetry: on 3L(s) per nasal canula, is 97 %. Interpretation: normal. Counseling: I had a detailed discussion with the patient and/or guardian regarding: the historical points, exam findings, and any diagnostic results supporting the discharge/admit diagnosis, lab results, radiology results, the need for further work-up and treatment in the hospital, the need to transfer to another facility. Physician consultation: MD Huston was contacted at 11:17, regarding admission, regarding transfer, and will see patient upon transfer -- would like ASA 324 mg, and NS at 100ml/hr. 12:30 ED course: Per Jordan [facility] Dr. Andujar's practicing privileges have been rh1 suspended, discussed with pt and family, will transfer to [facility]. 12:51 Physician consultation: MD Hill was called at 12:51, was contacted at 12:51, [facility] regarding admission, regarding transfer, to [facility]. and will see patient upon arrival to CCU. 11/28 09:47 Order name: Basic Metabolic Panel; Complete Time: 10:46 11/28 09:47 Order name: CBC with Diff; Complete Time: 10:14 11/28 09:47 Order name: LFT's; Complete Time: 10:46 11/28 09:47 Order name: Magnesium; Complete Time: 10:46 11/28 09:47 Order name: NT PRO-BNP; Complete Time: 10:46 11/28 09:47 Order name: PT-INR; Complete Time: 10:14 11/28 09:47 Order name: Troponin (emerg Dept Use Only); Complete Time: 10:46 11/28 09:47 Order name: XRAY Chest (1 view); Complete Time: 11:15 11/28 09:51 Order name: ETOH Level; Complete Time: 10:46 11/28 09:51 Order name: AMMONIA; Complete Time: 10:50 11/28 13:13 Order name: Urine Dipstick--Ancillary (enter results) eb 11/28 09:47 Order name: EKG; Complete Time: 09:48 11/28 09:47 Order name: Cardiac monitoring; Complete Time: 10:00 11/28 09:47 Order name: EKG - Nurse/Tech; Complete Time: 10:00 11/28 09:47 Order name: IV Saline Lock; Complete Time: 10:00 11/28 09:47 Order name: Labs collected and sent; Complete Time: 10:01 11/28 09:47 Order name: O2 Per Protocol; Complete Time: 10:01 11/28 09:47 Order name: O2 Sat Monitoring; Complete Time: 10:01 11/28 09:52 Order name: Urine Dipstick-Ancillary (obtain specimen); Complete Time: 13:53 rh1 Administered Medications: 11:00 Drug: NS 0.9% 250 ml Route: IV; Rate: 250 ml/hr; Site: left antecubital; bp 11:27 Follow up: IV Status: Infusion continued upon transfer bp 11:26 Drug: Aspirin Chewable Tablet 324 mg Route: PO; bp 11:27 Follow up: Response: No adverse reaction bp 12:45 Drug: Lasix 20 mg Route: IVP; Site: left antecubital; bp 13:14 Follow up: Response: No adverse reaction bp 12:45 Drug: Lovenox 40 mg Route: Sub-Q; Site: right lower abdomen; bp 13:14 Follow up: Response: No adverse reaction bp Disposition: 11/29 09:15 Co-signature as Attending Physician, Parminder Benavidez MD I agree with the assessment and fredy plan of care. Disposition: 11/28/18 11:19 Transfer ordered to Other Acute Care Facility. Diagnosis are Combined systolic (congestive) and diastolic (congestive) heart failure, Acute kidney failure, Shortness of breath, Bradycardia, unspecified. - Reason for transfer: Higher level of care. - Accepting physician is Sergio WHEAT. - Condition is Stable. - Problem is an ongoing problem. - Symptoms have improved. Signatures: Dispatcher [employer] [facility] Parminder Benavidez MD MD cha Jones, Rachel, BOTTLE FEEDER BOTTLE FEEDER rh1 Wally Joseph, RN RN bp Corrections: (The following items were deleted from the chart) 11/28 11:41 09:48 Chest For PE Angio+CT.RAD.BRZ ordered. [facility] 12:23 11:19 11/28/2018 11:19 Transfer ordered to Other Acute Care Facility. Diagnosis is rh1 Combined systolic (congestive) and diastolic (congestive) heart failure; Acute kidney failure; Shortness of breath. Reason for transfer: Higher level of care. Accepting physician is Jaziel WHEAT. Condition is Stable. Problem is an ongoing problem. Symptoms have improved. rh1 12:51 12:23 11/28/2018 11:19 Transfer ordered to Other Acute Care Facility. Diagnosis is rh1 Combined systolic (congestive) and diastolic (congestive) heart failure; Acute kidney failure; Shortness of breath; Bradycardia, unspecified. Reason for transfer: Higher level of care. Accepting physician is Jaziel WHEAT. Condition is Stable. Problem is an ongoing problem. Symptoms have improved. rh1 13:54 12:51 11/28/2018 11:19 Transfer ordered to Other Acute Care Facility. Diagnosis is bp Combined systolic (congestive) and diastolic (congestive) heart failure; Acute kidney failure; Shortness of breath; Bradycardia, unspecified. Reason for transfer: Higher level of care. Accepting physician is Sergio WHEAT. Condition is Stable. Problem is an ongoing problem. Symptoms have improved. rh1
[2018-11-28] MEDS ORDERED: ASPIRIN 325 MG TAB ONE (11:32)
[2018-11-28] MEDS ORDERED: NA CHLORIDE 0.9% 250 ML ONE (11:32)
[2018-11-28] MEDS ORDERED: ENOXAPARIN 40 MG/0.4 ML SQ ONE (12:58)
[2018-11-28] MEDS ORDERED: FUROSEMIDE 20 MG/ 2ML VIAL ONE (12:58)
[2018-11-28 14:08] VITALS: TEMP 98
[2018-11-28 14:13] VITALS: BP 124/83; O2SAT 96
[2018-11-28 14:30] LABS: Urine Blood NEGATIVE (NEG); Urine Glucose NEGATIVE (NEG); Urine Protein 3+ (NEG); Urine Specific Gravity 1.025 (1.005-1.030)
--- NOTE | 2018-11-29 07:24 | EKG ---
Test Date: 2018-11-28 Test Time: 09:18:30 Vice President Of Instruction: JOCY MEASUREMENT RESULTS: Intervals: Rate: 44 AR: 182 QRSD: 90 QT: 484 QTc: 413 [place]: P: 70 AR: 182 QRS: 82 T: 42 INTERPRETIVE STATEMENTS: Marked sinus bradycardia ST & T wave abnormality, consider anterior ischemia Abnormal ECG Compared to ECG 08/07/2018 00:28:16 ST (T wave) deviation now present Possible ischemia now present Atrial premature complex(es) no longer present Right-axis deviation no longer present Electronically Signed On 11-29-18 07:21:33 SCRAP DROP CRANE OPERATOR by John Devries
== END 2018-11-28 13:54 ==
LOC: ER 09:16
DX: I11.0 Hypertensive heart disease with heart failure (principal); I50.40 Unspecified combined systolic (congestive) and diastolic (congestive) heart failure; N17.9 Acute kidney failure, unspecified; R00.1 Bradycardia, unspecified; J44.9 Chronic obstructive pulmonary disease, unspecified; I25.2 Old myocardial infarction; I48.91 Unspecified atrial fibrillation; G89.29 Other chronic pain; Z79.899 Other long term (current) drug therapy; Z95.1 Presence of aortocoronary bypass graft; Z95.5 Presence of coronary angioplasty implant and graft
CPT/HCPCS: 36415; 71045; 80048; 80076; 80320; 81003; 82140; 83735; 83880; 84484; 85025; 85610; 93005; 96361; 96365; 96372; 96374; 96375; 99285; J1650; J1940

== ENCOUNTER 2018-12-07 02:23 | Emergency (ER) | payer OTHER ==
--- OUTSIDE RECORDS SUMMARY | 2018-12-07 02:26 | XMS REPORT | Clinical Summary ---
:[address] [facility] Address [address] [place] [address] Care Team Providers Name Role Phone Unavailable Primary Care Provider Unavailable Allergies No Known Allergies Medications Medication Sig Dispensed Refills Start Date End Date Status HYDROcodone-acetaminop Take 1 tablet by 0 Active hen (NORCO 7.5-325) mouth every 6 7.5-325 mg per tablet (six) hours as needed for Pain. ALPRAZolam (XANAX) 1 Take 1 mg by 0 Active MG tablet mouth every night as needed for Sleep or Anxiety. pantoprazole Take 40 mg by 0 Active (PROTONIX) 40 MG mouth daily. tablet furosemide (LASIX) 40 Take 40 mg by 0 Active MG tablet mouth daily. albuterol HFA Inhale 1 puff by 0 Active (VENTOLIN HFA) 90 mouth via mcg/actuation inhaler inhaler every 6 (six) hours as needed for Wheezing. CARISOPRODOL ORAL Take 1 tablet by 0 Active mouth every 6 (six) hours. aspirin 81 MG chewable Take 1 tablet 30 tablet 11 12/02/2018 12/02/2019 Active tablet (81 mg total) by mouth daily. atorvastatin (LIPITOR) Take 1 tablet 30 tablet 11 12/01/2018 12/01/2019 Active 80 MG tablet (80 mg total) by mouth nightly. clopidogrel (PLAVIX) Take 1 tablet 30 tablet 11 12/02/2018 12/02/2019 Active 75 mg tablet (75 mg total) by mouth daily. hydrALAZINE Take 1 tablet 90 tablet 11 12/01/2018 12/01/2019 Active (APRESOLINE) 25 MG (25 mg total) by tablet mouth every 8 (eight) hours. Active Problems Problem Noted Date Acute diastolic (congestive) heart failure 12/01/2018 Volume overload 11/28/2018 Acute renal failure (ARF) 11/28/2018 Acute hypoxemic respiratory failure 11/28/2018 Congestive heart failure (CHF) 11/28/2018 Acute decompensated heart failure 11/28/2018 COPD (chronic obstructive pulmonary disease) 11/28/2018 Coronary artery disease 11/28/2018 Encounters Date Type Specialty Care Team Description 11/28/2018 - Hospital Encounter Cardiology Sara Rider Acute decompensated 12/01/2018 MD Fabián heart failure (HCC) Avinash Lowry (Kwasi) MD Ramon 11/28/2018 Orders Only General Internal Medicine after 12/06/2017 Social History Tobacco Use Types Packs/Day Years Used Date Passive Smoke Exposure - Never Smoker Smokeless Tobacco: Never Used Sex Assigned at Date Recorded Not on file Job Start Date Occupation Industry Not on file Not on file Not on file Travel History Travel Start Travel End No recent travel history available. Last Filed Vital Signs Vital Sign Reading Time Taken Blood Pressure 141/73 12/01/2018 11:09 AM VOCATIONAL REHABILITATION TECHNICIAN Pulse 88 12/01/2018 11:09 AM VOCATIONAL REHABILITATION TECHNICIAN Temperature 36.3 C (97.4 F) 12/01/2018 11:09 AM VOCATIONAL REHABILITATION TECHNICIAN Respiratory Rate 20 12/01/2018 11:09 AM VOCATIONAL REHABILITATION TECHNICIAN Oxygen Saturation 97% 12/01/2018 11:09 AM VOCATIONAL REHABILITATION TECHNICIAN Inhaled Oxygen Concentration - - Weight 93.4 kg (206 lb) 11/30/2018 3:36 AM VOCATIONAL REHABILITATION TECHNICIAN Height 173.7 cm (5' 8.4") 11/28/2018 5:12 PM VOCATIONAL REHABILITATION TECHNICIAN Body Mass Index 30.96 11/30/2018 3:36 AM VOCATIONAL REHABILITATION TECHNICIAN Plan of Treatment Not on file Procedures Procedure Name Priority Date/Time Associated Comments Diagnosis MAGNESIUM Routine 11/30/2018 8:03 Results for this PM VOCATIONAL REHABILITATION TECHNICIAN procedure are in the results section. BASIC METABOLIC PANEL Routine 11/30/2018 8:03 Results for this (7) PM VOCATIONAL REHABILITATION TECHNICIAN procedure are in the results section. MAGNESIUM Routine 11/29/2018 8:43 Results for this PM VOCATIONAL REHABILITATION TECHNICIAN procedure are in the results section. BASIC METABOLIC PANEL Routine 11/29/2018 8:43 Results for this (7) PM VOCATIONAL REHABILITATION TECHNICIAN procedure are in the results section. URINE PROTEIN AP Routine 11/29/2018 8:43 Results for this ELECTROPHORESIS, 24 PM VOCATIONAL REHABILITATION TECHNICIAN procedure are in HOUR the results section. PROTEIN, 24 HOUR URINE Routine 11/29/2018 8:43 Results for this PM VOCATIONAL REHABILITATION TECHNICIAN procedure are in the results section. TRANSFUSION SERVICE 11/29/2018 6:00 REPORT - SCAN PM VOCATIONAL REHABILITATION TECHNICIAN BASIC METABOLIC PANEL Routine 11/29/2018 2:19 Results for this (7) PM VOCATIONAL REHABILITATION TECHNICIAN procedure are in the results section. MAGNESIUM Routine 11/29/2018 2:19 Results for this PM VOCATIONAL REHABILITATION TECHNICIAN procedure are in the results section. TROPONIN I Routine 11/29/2018 2:19 Results for this PM VOCATIONAL REHABILITATION TECHNICIAN procedure are in the results section. US RENAL COMPLETE Routine 11/29/2018 11:45 Results for this AM VOCATIONAL REHABILITATION TECHNICIAN procedure are in the results section. ECHOCARDIOGRAM REPORT - 11/29/2018 10:51 SCAN AM VOCATIONAL REHABILITATION TECHNICIAN CBC W/PLT COUNT & AUTO Routine 11/29/2018 1:57 Results for this DIFFERENTIAL AM VOCATIONAL REHABILITATION TECHNICIAN procedure are in the results section. CBC W/PLT COUNT & AUTO Routine 11/29/2018 1:57 Results for this DIFFERENTIAL AM VOCATIONAL REHABILITATION TECHNICIAN procedure are in the results section. MAGNESIUM Routine 11/29/2018 1:57 Results for this AM VOCATIONAL REHABILITATION TECHNICIAN procedure are in the results section. BASIC METABOLIC PANEL Routine 11/29/2018 1:57 Results for this (7) AM VOCATIONAL REHABILITATION TECHNICIAN procedure are in the results section. 2D ECHO W/ DOPPLER BONNIE 11/29/2018 1:28 Results for this (CW/PW/COLOR) AM VOCATIONAL REHABILITATION TECHNICIAN procedure are in the results section. FERRITIN Routine 11/28/2018 8:51 Results for this PM VOCATIONAL REHABILITATION TECHNICIAN procedure are in the results section. IRON, TIBC, % SAT. Routine 11/28/2018 8:51 Results for this (WITHOUT FERRITIN) PM VOCATIONAL REHABILITATION TECHNICIAN procedure are in the results section. PTH, INTACT Routine 11/28/2018 8:51 Results for this PM VOCATIONAL REHABILITATION TECHNICIAN procedure are in the results section. COMPLEMENT COMPONENT C4 Routine 11/28/2018 8:51 Results for this PM VOCATIONAL REHABILITATION TECHNICIAN procedure are in the results section. COMPLEMENT COMPONENT C3 Routine 11/28/2018 8:51 Results for this PM VOCATIONAL REHABILITATION TECHNICIAN procedure are in the results section. IMMUNOFIXATION AP Routine 11/28/2018 8:51 Results for this ELECTROPHORESIS (MELI) PM VOCATIONAL REHABILITATION TECHNICIAN procedure are in the results section. PROTEIN AP Routine 11/28/2018 8:51 Results for this ELECTROPHORESIS, SERUM PM VOCATIONAL REHABILITATION TECHNICIAN procedure are in the results section. CARDIOLIPIN ANTIBODIES, Routine 11/28/2018 8:51 Results for this IGG AND IGM PM VOCATIONAL REHABILITATION TECHNICIAN procedure are in the results section. ANTI-NEUTROPHIL Routine 11/28/2018 8:51 Results for this CYTOPLASMIC AB (ANCA) PM VOCATIONAL REHABILITATION TECHNICIAN procedure are in the results section. ECG 12-LEAD Routine 11/28/2018 5:57 Results for this PM VOCATIONAL REHABILITATION TECHNICIAN procedure are in the results section. LACTIC ACID, VENOUS, Routine 11/28/2018 4:49 Results for this WHOLE BLOOD PM VOCATIONAL REHABILITATION TECHNICIAN procedure are in the results section. CBC W/PLT COUNT & AUTO Routine 11/28/2018 4:41 Results for this DIFFERENTIAL PM VOCATIONAL REHABILITATION TECHNICIAN procedure are in the results section. ABORH, MANUAL STAT 11/28/2018 4:41 Results for this PM VOCATIONAL REHABILITATION TECHNICIAN procedure are in the results section. CBC W/PLT COUNT & AUTO Routine 11/28/2018 4:41 Results for this DIFFERENTIAL PM VOCATIONAL REHABILITATION TECHNICIAN procedure are in the results section. XR CHEST 1 VIEW BONNIE 11/28/2018 4:37 Results for this PORTABLE/BEDSIDE PM VOCATIONAL REHABILITATION TECHNICIAN procedure are in the results section. TSH/FREE T4 IF Routine 11/28/2018 4:21 Results for this INDICATED PM VOCATIONAL REHABILITATION TECHNICIAN procedure are in the results section. SODIUM, RANDOM URINE STAT 11/28/2018 4:19 Results for this PM VOCATIONAL REHABILITATION TECHNICIAN procedure are in the results section. CREATININE, RANDOM STAT 11/28/2018 4:19 Results for this URINE PM VOCATIONAL REHABILITATION TECHNICIAN procedure are in the results section. PROTEIN, RANDOM URINE STAT 11/28/2018 4:19 Results for this PM VOCATIONAL REHABILITATION TECHNICIAN procedure are in the results section. URINALYSIS W/ REFLEX STAT 11/28/2018 4:19 Results for this URINE CULTURE PM VOCATIONAL REHABILITATION TECHNICIAN procedure are in the results section. B-TYPE NATRIURETIC Routine 11/28/2018 4:19 Results for this FACTOR (BNP) PM VOCATIONAL REHABILITATION TECHNICIAN procedure are in the results section. TYPE AND SCREEN, STAT 11/28/2018 4:18 Results for this AUTOMATED PM VOCATIONAL REHABILITATION TECHNICIAN procedure are in the results section. TROPONIN I STAT 11/28/2018 4:18 Results for this PM VOCATIONAL REHABILITATION TECHNICIAN procedure are in the results section. LIPID PANEL STAT 11/28/2018 4:18 Results for this PM VOCATIONAL REHABILITATION TECHNICIAN procedure are in the results section. HEMOGLOBIN A1C AP Routine 11/28/2018 4:18 Results for this PM VOCATIONAL REHABILITATION TECHNICIAN procedure are in the results section. APTT Routine 11/28/2018 4:18 Results for this PM VOCATIONAL REHABILITATION TECHNICIAN procedure are in the results section. PROTHROMBIN TIME/INR Routine 11/28/2018 4:18 Results for this PM VOCATIONAL REHABILITATION TECHNICIAN procedure are in the results section. MAGNESIUM STAT 11/28/2018 4:18 Results for this PM VOCATIONAL REHABILITATION TECHNICIAN procedure are in the results section. COMPREHENSIVE METABOLIC Routine 11/28/2018 4:18 Results for this PANEL PM VOCATIONAL REHABILITATION TECHNICIAN procedure are in the results section. after 12/06/2017 Results Magnesium (11/30/2018 8:03 PM VOCATIONAL REHABILITATION TECHNICIAN)Only the most recent of5 resultswithin the time period is included. Magnesium 1.8 1.6 - 2.6 mg/dL [facility] Specimen Blood - Arm, Left Performing Organization Address [facility], [place] Phone Number [address] [address] [place] Basic Metabolic Panel (11/30/2018 8:03 PM VOCATIONAL REHABILITATION TECHNICIAN)Only the most recent of4 resultswithin the time period is included. Sodium 139 136 - 145 meq/L [facility] Potassium 3.5 3.5 - 5.1 meq/L [facility] Chloride 96 (L) 98 - 107 meq/L [facility] CO2 35 (H) 22 - 29 meq/L [facility] BUN 30 (H) 7 - 21 mg/dL [facility] Creatinine 1.09 0.57 - 1.25 mg/dL [facility] Glucose 87 70 - 105 mg/dL [facility] Calcium 9.7 8.4 - 10.2 mg/dL [facility] EGFR 68Comment: ESTIMATED GFR IS mL/min/1.73 sq m [facility] NOT ACCURATE CREATININE [facility] CENTER CLEARANCE IN PREDICTING GLOMERULAR FILTRATION RATE. ESTIMATED GFR IS NOT APPLICABLE FOR DIALYSIS PATIENTS. Specimen Blood - Arm, Left Performing Organization Address [facility], [place] Phone Number [place] [phone] [place] [address] [place] Urine Protein Electrophoresis, 24 hour (11/29/2018 8:43 PM VOCATIONAL REHABILITATION TECHNICIAN) Protein, 24hr Urine <509 (H) 0 - 300 mg/24hr [facility] Volume, Urine 7,275 ml [facility] Albumin, 24hr Urine 17.5 % [facility] Globulin, 24hr Urine 82.5 % [facility] UPEP, ID No monoclonal bands [facility] detected. [facility] Protein, Urine <7 0 - 14 mg/dL [facility] Pathologist: Meghan Flores MD [facility] (electronic signature) [facility] Specimen Urine Performing Organization Address City/[facility]/Zipcode Phone Number [facility] [address] [place] [address] [place] Protein, 24 hour urine (11/29/2018 8:43 PM VOCATIONAL REHABILITATION TECHNICIAN) Protein, 24hr Urine <509 (H) 0 - 300 mg/24hr [facility] Volume, Urine 7,275 ml [facility] Protein, Urine <7 0 - 14 mg/dL [facility] Specimen Urine Performing Organization Address [facility], [place] Phone Number [facility] [address] [place] [address] [phone] [place] TRANSFUSION SERVICE REPORT - SCAN (11/29/2018 6:00 PM VOCATIONAL REHABILITATION TECHNICIAN) Narrative Performed At Troponin I (11/29/2018 2:19 PM VOCATIONAL REHABILITATION TECHNICIAN)Only the most recent of2 resultswithin the time period is included. Troponin I 0.25 (HH) 0.00 - 0.03 ng/mL [facility] Specimen Blood - Line, Venous Narrative Performed At Troponin I (TnI) levels must be interpreted [facility] in the context of the presenting symptoms and the clinical findings. Elevated TnI levels indicate myocardial damage, but are not specific for ischemic heart disease. Elevated TnI levels are seen in patients with other cardiac conditions (including myocarditis and congestive heart failure), and slight TnI elevations occur in patients with other conditions, including sepsis, renal failure, acidosis, acute neurological disease, and persistent tachyarrhythmia. Draw at next electrolyte check Performing Organization Address City/State/Zipcode Phone Number [facility] [address] [place] [address] [facility] renal complete (11/29/2018 11:45 AM VOCATIONAL REHABILITATION TECHNICIAN) Narrative Performed At FINAL REPORT [employer] Renal ultrasound. Clinical History: RENAL FAILURE. Comparison Study: None. Findings: The right kidney measures 11.0 x 5.4 x 6.2 cm and left kidney measures 11.8 x 6.6 x 5.8 cm. There is no evidence of hydronephrosis, nephrolithiasis or renal mass on either side. The echogenicity is normal bilaterally. The cortical thickness on the right side is 1.1 cm and on the left side is 1.5 cm. Color flow is documented to both kidneys. The prevoid bladder volume is 129 cc. The postvoid volume is 6 cc. Impression: Morphologically normal appearing kidneys bilaterally with no evidence of hydronephrosis. Signed: Olu Roe MD Report Verified Date/Time:11/29/2018 16:54:26 Reading Location: [address] Ultrasound Reading Room Procedure Note Interface, External Ris In - 11/29/2018 4:56 PM VOCATIONAL REHABILITATION TECHNICIAN FINAL REPORT Renal ultrasound. Clinical History: RENAL FAILURE. Comparison Study: None. Findings: The right kidney measures 11.0 x 5.4 x 6.2 cm and left kidney measures 11.8 x 6.6 x 5.8 cm. There is no evidence of hydronephrosis, nephrolithiasis or renal mass on either side. The echogenicity is normal bilaterally. The cortical thickness on the right side is 1.1 cm and on the left side is 1.5 cm. Color flow is documented to both kidneys. The prevoid bladder volume is 129 cc. The postvoid volume is 6 cc. Impression: Morphologically normal appearing kidneys bilaterally with no evidence of hydronephrosis. Signed: Olu Roe MD Report Verified Date/Time: 11/29/2018 16:54:26 Reading Location: [address] Ultrasound Reading Room Performing Organization Address City/State/Zipcode Phone Number [facility] ECHOCARDIOGRAM REPORT - SCAN (11/29/2018 10:51 AM VOCATIONAL REHABILITATION TECHNICIAN) Narrative Performed At CBC with platelet count + automated diff (11/29/2018 1:57 AM VOCATIONAL REHABILITATION TECHNICIAN)Only the most recent of2 resultswithin the time period is included. WBC 4.9 3.5 - 10.5 K/L [facility] RBC 3.43 (L) 4.63 - 6.08 M/L [facility] Hemoglobin 9.6 (L) 13.7 - 17.5 GM/DL [facility] Hematocrit 29.9 (L) 40.1 - 51.0 % [facility] MCV 87.2 79.0 - 92.2 fL [facility] MCH 28.0 25.7 - 32.2 pg [facility] MCHC 32.1 (L) 32.3 - 36.5 GM/DL [facility] RDW 13.2 11.6 - 14.4 % [facility] Platelets 156 150 - 450 K/CU MM [facility] MPV 10.1 9.4 - 12.4 fL [facility] nRBC 0 0 - 0 /100 WBC [facility] % Neutros 58 % [facility] % Lymphs 17 % [facility] % Monos 17 % [facility] % Eos 7 % [facility] % Baso 1 % [facility] # Neutros 2.80 1.78 - 5.38 K/L [facility] # Lymphs 0.84 (L) 1.32 - 3.57 K/L [facility] # Monos 0.81 0.30 - 0.82 K/L [facility] # Eos 0.32 0.04 - 0.54 K/L [facility] # Baso 0.07 0.01 - 0.08 K/L [facility] Immature Granulocytes-Relative 0 0 - 1 % [facility] Specimen Blood - Line, Venous Performing Organization Address City/State/Zipcode Phone Number [facility] [address] [place] [address] [phone] CENTER 2D Echo W/Doppler(CW/PW/Color) (11/29/2018 1:28 AM VOCATIONAL REHABILITATION TECHNICIAN) Ejection Fraction [facility] E[facility] CPA Narrative Performed At Transthoracic Echocardiography Report (TTE) [facility] Demographics Patient Name GIBSON WHITMAN Date of Study 11/29/2018 [id number] GenderMale Visit Number [id number] Unknown [id number] Room Number [id number] Number Date of Birth1955Referring Physician FLASH Gunter Age63 year(s)Router Machine Operator Lillian Mcgowan RDCS, RVT InterpretingJojean Gonzalez MD Physician Fellow FLASH Giron Procedure Type of Study TTE procedure:2DECHO W DOPPLER(CW/PW/COLOR) (BONNIE) Indications:Known or suspected cardiomyopathy. Clinical History AFIB, CHF, COPD, CAD, CABG, [place] HGB 10 HCT 31.9 % Contrast Medium: Definity. Amount - 2 ml Height: 68 inches Weight: 99.79 kg (220 lbs) BSA: 2.13 m^2 BMI: 33.45 kg/m^2 HR: 600 bpm BP: 100/61 mmHg Summary The left ventricle is chamber size (by vol index) is normal (male - LVED vol - 34-74ml/m2). Mild concentric LV hypertrophy. All of the LV segments contract normally . LVEF by Mishra's method of disk assessment is normal (>60%) . Degree of diastolic dysfunction (LAP assessment) is inconclusive due to arrhythmia . Estimated peak systolic PA pressure is 30-35 mmHg . No significant pericardial effusion is visualized. Signature Findings Rhythm/BPAtrial fibrillation with controlled heart rate re sponse. Left Ventricle The LV endocardium is adequately visualized. Th e left ventricle is chamber size (by vol index) is normal (male - LVED vol - 34-74ml/m2). Mi ld concentric LV hypertrophy. Al l of the LV segments contract normally . LV EF by Mishra's method of disk assessment is no rmal (>60%) . De gree of diastolic dysfunction (LAP assessment) is in conclusive due to arrhythmia . Left AtriumLA size is moderately enlarged (42-48 ml/m2) . Right VentricleThe right ventricular chamber size and systolic fu nction are within normal limits. Right Atrium RA size is normal. Atrial SeptumNormal interatrial septum by available views. Aortic Valve Mild Aortic valve thickening. There is no aortic st enosis. There is no aortic regurgitation. Mitral Valve Normal MV structure. Tr sylvester mitral regurgitation. No evidence of mitral stenosis. Tricuspid ValveTV structure is normal. A trace of tricuspid regurgitation. No evidence of tricuspid stenosis. Es timated peak systolic PA pressure is 30-35 mmHg . Pulmonic Valve Mild PV leaflet thickening. Mi ld pulmonary regurgitation. No evidence of PV stenosis. AortaAortic root size (SInus of Valsalva diameter) is no rmal . Pr oximal ascending aorta size is normal . PericardiumNo significant pericardial effusion is visualized. IVC/SVC/PA/PV/PleuralThe estimated RA pressure by IVC dynamics 5-10mmHg . Chambers/Structures Left Atrium LA Dimension: 4.95 cm LA Area: 28.7 cm^2 LA Volume: 94.86 ml LA Vol. Index: 45 ml/m^2 Left Ventricle LVIDd: 5.89 cm LVIDs: 3.86 cm LV Septum Diastolic: 1.17 cm LV Septum Systolic: 1.43 cm LV FS: 34.5 % LV PW Diastolic: 1.2 cm LV PW Systolic: 2.46 cm LVEDVI: 53 ml/m^2 LVEDV Mishra's:112.83 ml LVESVI: 17 ml/m^2 LVESV Mishra's:37.02 ml LVEF Mishra's: 67.2 % LVOT Diameter: 2.08 cm Right Atrium RA Vol. (Sngl Plane): 91.55 ml Right Ventricle RV Diast Dim.: 4.77 cm Doppler/Quantitative Measurements Mitral Valve MV Peak E-Wave: 0.93 m/s Peak Gradient: 3.48 mmHg MV Tarik. Peak: Tissue Doppler E' Septal Velocity: 0.07 m/s E/E': 13.98 E' Lateral Velocity: 0.14 m/s Aortic Valve Peak Velocity: 1.61 m/sMean Velocity: 1.19 m/s Peak Gradient: 10.33 mmHgMean Gradient: 6.34 mmHg AV Area (continuity): 2.56 cm^2 AV VTI: 30.15 cm AV DVI: 0.75 LVOT Peak Velocity: 1.32 m/s Peak Gradient: 7.01 mmHg Mean Velocity: 0.81 m/s Mean Gradient: 3.15 mmHg LVOT Diameter: 2.08 cmLVOT VTI: 22.76 cm LVOT Area: 3.4 cm^2 LVOT SV:77.3 ml LVOT CO: 46.38 l/minLVOT CI: 21.77 l/min/m^2 Tricuspid Valve TR Velocity: 2.48 m/s TR Gradient: 24.53 mmHg Procedure Note Interface, External Ris In - 11/29/2018 10:24 AM VOCATIONAL REHABILITATION TECHNICIAN Transthoracic Echocardiography Report (TTE) Demographics Patient Name GIBSON WHITMAN Date of Study 11/29/2018 Gender Male Visit Number [id number] Race Unknown Room Number 6216 Number Date of 1955 Referring Physician FLASH Gunter Age 63 year(s) Router Machine Operator Lillian Mcgowan RDCS, RVT Interpreting Zane Gonzalez MD Physician Fellow FLASH Giron Procedure Type of Study TTE procedure:2DECHO W DOPPLER(CW/PW/COLOR) (BONNIE) Indications:Known or suspected cardiomyopathy. Clinical History AFIB, CHF, COPD, CAD, CABG, [place] HGB 10 HCT 31.9 % Contrast Medium: Definity. Amount - 2 ml Height: 68 inches Weight: 99.79 kg (220 lbs) BSA: 2.13 m^2 BMI: 33.45 kg/m^2 HR: 600 bpm BP: 100/61 mmHg Summary The left ventricle is chamber size (by vol index) is normal (male - LVED vol - 34-74ml/m2). Mild concentric LV hypertrophy. All of the LV segments contract normally . LVEF by Mishra's method of disk assessment is normal (>60%) . Degree of diastolic dysfunction (LAP assessment) is inconclusive due to arrhythmia . Estimated peak systolic PA pressure is 30-35 mmHg . No significant pericardial effusion is visualized. Signature Findings Rhythm/BP Atrial fibrillation with controlled heart rate response. Left Ventricle The LV endocardium is adequately visualized. The left ventricle is chamber size (by vol index) is normal (male - LVED vol - 34-74ml/m2). Mild concentric LV hypertrophy. All of the LV segments contract normally . LVEF by Mishra's method of disk assessment is normal (>60%) . Degree of diastolic dysfunction (LAP assessment) is inconclusive due to arrhythmia . Left Atrium LA size is moderately enlarged (42-48 ml/m2) . Right Ventricle The right ventricular chamber size and systolic function are within normal limits. Right Atrium RA size is normal. Atrial Septum Normal interatrial septum by available views. Aortic Valve Mild Aortic valve thickening. There is no aortic stenosis. There is no aortic regurgitation. Mitral Valve Normal MV structure. Trace mitral regurgitation. No evidence of mitral stenosis. Tricuspid Valve TV structure is normal. A trace of tricuspid regurgitation. No evidence of tricuspid stenosis. Estimated peak systolic PA pressure is 30-35 mmHg . Pulmonic Valve Mild PV leaflet thickening. Mild pulmonary regurgitation. No evidence of PV stenosis. Aorta Aortic root size (SInus of Valsalva diameter) is normal . Proximal ascending aorta size is normal . Pericardium No significant pericardial effusion is visualized. IVC/SVC/PA/PV/Pleural The estimated RA pressure by IVC dynamics 5-10mmHg . Chambers/Structures Left Atrium LA Dimension: 4.95 cm LA Area: 28.7 cm^2 LA Volume: 94.86 ml LA Vol. Index: 45 ml/m^2 Left Ventricle LVIDd: 5.89 cm LVIDs: 3.86 cm LV Septum Diastolic: 1.17 cm LV Septum Systolic: 1.43 cm LV FS: 34.5 % LV PW Diastolic: 1.2 cm LV PW Systolic: 2.46 cm LVEDVI: 53 ml/m^2 LVEDV Mishra's:112.83 ml LVESVI: 17 ml/m^2 LVESV Mishra's:37.02 ml LVEF Mishra's: 67.2 % LVOT Diameter: 2.08 cm Right Atrium RA Vol. (Sngl Plane): 91.55 ml Right Ventricle RV Diast Dim.: 4.77 cm Doppler/Quantitative Measurements Mitral Valve MV Peak E-Wave: 0.93 m/s Peak Gradient: 3.48 mmHg MV Tarik. Peak: Tissue Doppler E' Septal Velocity: 0.07 m/s E/E': 13.98 E' Lateral Velocity: 0.14 m/s Aortic Valve Peak Velocity: 1.61 m/s Mean Velocity: 1.19 m/s Peak Gradient: 10.33 mmHg Mean Gradient: 6.34 mmHg AV Area (continuity): 2.56 cm^2 AV VTI: 30.15 cm AV DVI: 0.75 LVOT Peak Velocity: 1.32 m/s Peak Gradient: 7.01 mmHg Mean Velocity: 0.81 m/s Mean Gradient: 3.15 mmHg LVOT Diameter: 2.08 cm LVOT VTI: 22.76 cm LVOT Area: 3.4 cm^2 LVOT SV:77.3 ml LVOT CO: 46.38 l/min LVOT CI: 21.77 l/min/m^2 Tricuspid Valve TR Velocity: 2.48 m/s TR Gradient: 24.53 mmHg Performing Organization Address [facility] [place] Phone Number [facility] MKCKESS[facility] CPACS Iron, TIBC, % sat. (without ferritin) (11/28/2018 8:51 PM VOCATIONAL REHABILITATION TECHNICIAN) Iron 44.0 40.0 - 160.0 ug/dL [facility] TIBC 434 250 - 450 ug/dL [facility] Iron % Saturation 10 (L) 20 - 55 % [facility] Specimen Blood Performing Organization Address [facility] [place] Phone Number [address] [address] [place] Cardiolipin Antibodies, IgG and IgM (11/28/2018 8:51 PM VOCATIONAL REHABILITATION TECHNICIAN) Anticardiolipin IgG <1.6 <20.0 GPL [facility] Anticardiolipin IgM 0.2 <20.0 MPL [facility] Specimen Blood Narrative Performed At Anticardiolipin IgG Result Interpretation: [facility] <20.0 GPL Normal >/=20.0 GPL Positive Anticardiolipin IgM Result Interpretation: <20.0 MPL Normal >/=20.0 MPL Positive Performing Organization Address [facility] Phone Number [address] [address] [phone] [place] Anti-Neutrophil Cytoplasmic Ab (ANCA) (11/28/2018 8:51 PM VOCATIONAL REHABILITATION TECHNICIAN) Proteinase-3 Ab <1.0 <1.0 AI [facility] Comment: INC[facility]ATED <1.0 AI No Antibody Detected > or=1.0 AI Antibody Detected Autoantibodies to proteinase-3 (SD-3) are accepted as characteristic for granulomatosis with polyangiitis (GPA, Luma's), and are detectable in 95% of the histologically proven cases. The cytoplasmic IFA pattern, (c-ANCA), is based largely on autoantibody to SD-3 which serves as the primary antigen. These autoantibodies are present in active disease. Myeloperoxidase Ab <1.0 <1.0 AI [facility] Comment: INCORPORATED <1.0 AI No Antibody Detected > or=1.0 AI Antibody Detected Autoantibodies to myeloperoxidase (MPO) are commonly associated with the following small-vessel vasculitides: microscopic polyangiitis, polyarteritis nodosa, Churg-Serge syndrome, necrotizing and crescentic glomerulonephritis and occasionally granulomatosis with polyangiitis (GPA, Luma's). The perinuclear IFA pattern, (p-ANCA) is based largely on autoantibody to myeloperoxidase which serves as the primary antigen. These autoantibodies are present in active disease. Specimen Blood Narrative Performed At Performing Lab [facility] [address] [address] Jayy Velarde MD, PhD, BENJAMÍN Performing Organization Address [facility] Phone Number [facility] [place] [address] [address] [place] [address] Immunofixation electrophoresis (MELI) (11/28/2018 8:51 PM VOCATIONAL REHABILITATION TECHNICIAN) IgG 1,933 (H) 540-1,822 mg/dL [facility] IgA 429 63 - 484 mg/dL [facility] IgM 116 22 - 293 mg/dL [facility] Serum MELI Identification No monoclonal proteins [facility] detected. Polyclonal [facility] distribution of immunoglobulins. Pathologist: Meghan Flores MD [facility] (electronic signature) [facility] Specimen Blood Performing Organization Address City/[facility]/Zipcode Phone Number [address] [address] CENTER Complement Component C3 (11/28/2018 8:51 PM VOCATIONAL REHABILITATION TECHNICIAN) C3 Complement 134 82 - 193 mg/dL [facility] Specimen Blood Performing Organization Address [facility]/Zipcode Phone Number [address] [address] CENTER Complement Component C4 (11/28/2018 8:51 PM VOCATIONAL REHABILITATION TECHNICIAN) C4 Complement 28 15 - 57 mg/dL [facility] Specimen Blood Performing Organization Address City/[facility] Phone Number [facility] [address] [place] [phone] CENTER Protein electrophoresis, serum (11/28/2018 8:51 PM VOCATIONAL REHABILITATION TECHNICIAN) Albumin Fraction 3.3 (L) 3.5 - 5.5 g/dL [facility] Alpha 1 Fraction 0.3 0.2 - 0.4 g/dL [facility] Alpha 2 Fraction 0.9 0.5 - 0.9 g/dL [facility] Beta Fraction 1.2 (H) 0.6 - 1.1 g/dL [facility] Gamma Globulin Fraction 1.9 (H) 0.7 - 1.7 g/dL [facility] Interpretation Beta-gamma bridging [facility] with polyclonal [facility] elevation of gamma fraction, suggesting hepatic dysfunction. No monoclonal bands detected. Pathologist: Meghan Flores MD [facility] (electronic signature) [facility] Protein, Total 7.7 6.0 - 8.3 gm/dL [facility] Specimen Blood Performing Organization Address [facility] Phone Number [address] [address] CENTER PTH, intact (11/28/2018 8:51 PM VOCATIONAL REHABILITATION TECHNICIAN) PTH 113.6 (H) 8.5 - 72.5 pg/mL [facility] Specimen Blood Performing Organization Address [facility] Phone Number [facility] [address] [place] [address] CENTER Ferritin (11/28/2018 8:51 PM VOCATIONAL REHABILITATION TECHNICIAN) Ferritin 77 5 - 275 ng/mL [facility] Specimen Blood Performing Organization Address City/[facility]/Zipcode Phone Number [address] [address] CENTER ECG 12 lead (11/28/2018 5:57 PM VOCATIONAL REHABILITATION TECHNICIAN) Narrative Performed At Ventricular Rate 56 BPM GE MUSE Atrial Rate 56 BPM P-R Interval 176 ms QRS Duration 92 ms Q-T Interval 460 ms QTC Calculation(Bazett) 443 ms P [place] 61 degrees R [place] 84 degrees T [place] [address] & T wave abnormality, consider anterior ischemia Abnormal ECG No previous ECGs available Confirmed by MD Tan Mahboob ([id number]) on 11/29/2018 3:52:19 PM Procedure Note Interface, External Ris In - 11/29/2018 3:52 PM VOCATIONAL REHABILITATION TECHNICIAN Ventricular Rate 56 BPM Atrial Rate 56 BPM P-R Interval 176 ms QRS Duration 92 ms Q-T Interval 460 ms QTC Calculation(Bazett) 443 ms P [place] 61 degrees R [place] 84 degrees T [place] [address] & T wave abnormality, consider anterior ischemia Abnormal ECG No previous ECGs available Confirmed by MD Tan Mahboob ([id number]) on 11/29/2018 3:52:19 PM Performing Organization Address [facility] [place] Phone Number GE MUSE Lactic acid, venous, whole blood (11/28/2018 4:49 PM VOCATIONAL REHABILITATION TECHNICIAN) Lactate, Venous 0.8 0.5 - 2.2 mmol/L [facility] Specimen Blood Performing Organization Address [facility] [place] Phone Number [address] [address] CENTER ABORH, manual (11/28/2018 4:41 PM VOCATIONAL REHABILITATION TECHNICIAN) ABO Grouping A [facility] Rh Factor POS [facility] Specimen Blood Performing Organization Address [facility]/Zipcode Phone Number [address] [address] XR chest 1 view portable / bedside (11/28/2018 4:37 PM VOCATIONAL REHABILITATION TECHNICIAN) Narrative Performed At FINAL REPORT GE RIS INDICATION: hypoxemia COMPARISON: None. TECHNIQUE: Chest radiograph, single view, portable technique. FINDINGS / IMPRESSION: Prominent heart shadow and prominent superior pulmonary veins which may represent mild pulmonary venous congestion. No overt pulmonary edema and no pleural effusion is demonstrated. No consolidation or pneumothorax demonstrated. Osseous structures unremarkable. Signed: Noé Marin MD Report Verified Date/Time:11/28/2018 16:56:58 Reading Location: [facility] C013X Ortho Consult Reading Room Procedure Note Interface, External Ris In - 11/28/2018 4:59 PM VOCATIONAL REHABILITATION TECHNICIAN FINAL REPORT INDICATION: hypoxemia COMPARISON: None. TECHNIQUE: Chest radiograph, single view, portable technique. FINDINGS / IMPRESSION: Prominent heart shadow and prominent superior pulmonary veins which may represent mild pulmonary venous congestion. No overt pulmonary edema and no pleural effusion is demonstrated. No consolidation or pneumothorax demonstrated. Osseous structures unremarkable. Signed: Noé Marin MD Report Verified Date/Time: 11/28/2018 16:56:58 Reading Location: [facility] C013X Ortho Consult Reading Room Performing Organization Address City/State/Zipcode Phone Number GE RIS TSH/Free T4 If Indicated (11/28/2018 4:21 PM VOCATIONAL REHABILITATION TECHNICIAN) TSH 1.00 0.35 - 4.94 uIU/mL [facility] Specimen Blood Performing Organization Address City/[facility]/Zipcode Phone Number [address] [address] [phone] CENTER Urinalysis w/Microscopic + Reflex to Culture (11/28/2018 4:19 PM VOCATIONAL REHABILITATION TECHNICIAN) Color, UA Light Yellow [facility] Clarity, UA Clear [facility] Specific [place], UA 1.007 1.001 - 1.035 [facility] pH, UA 5.0 5.0 - 8.0 [facility] Protein, UA 20 mg/dL (A) Negative [facility] Glucose, UA Negative Negative [facility] Ketones, UA Negative Negative [facility] Bilirubin, UA Negative Negative [facility] Blood, UA Negative Negative [facility] Nitrite, UA Negative Negative [facility] Leukocytes, UA Negative Negative [facility] Urobilinogen, UA 0.2 0.2 - 1.0 mg/dL [facility] RBC, UA 1 /HPF [facility] WBC, UA 1 /HPF [facility] Bacteria, UA Rare [facility] Mucus Rare [facility] Squam Epithel, UA 1 /HPF [facility] Hyaline Casts, UA 9 /LPF [facility] Specimen Source [facility] Specimen Urine Performing Organization Address City/[facility] [place] Phone Number [address] [address] [phone] [place] Sodium, random urine (11/28/2018 4:19 PM VOCATIONAL REHABILITATION TECHNICIAN) Sodium Urine 41 meq/L [facility] Specimen Urine Narrative Performed At Reference Range: No Normals [facility] Performing Organization Address City/[facility] [place] Phone Number [address] [address] [place] Protein, random urine (11/28/2018 4:19 PM VOCATIONAL REHABILITATION TECHNICIAN) Protein, Urine 37 (H) 0 - 14 mg/dL [facility] Specimen Urine Performing Organization Address City/[facility] [place] Phone Number [address] [address] [place] Creatinine, random urine (11/28/2018 4:19 PM VOCATIONAL REHABILITATION TECHNICIAN) Creatinine, Ur 72.7 mg/dL [facility] Specimen Urine Narrative Performed At Reference Range: No Normals [facility] Performing Organization Address [facility] [place] Phone Number [address] [address] C[place] B-type Natriuretic Factor (BNP) (11/28/2018 4:19 PM VOCATIONAL REHABILITATION TECHNICIAN) BNP 1,079 (H) 0 - 100 pg/mL [facility] Specimen Blood Performing Organization Address City/[facility] [place] Phone Number [address] [address] [phone] CENTER Type and screen, automated (11/28/2018 4:18 PM VOCATIONAL REHABILITATION TECHNICIAN) ABO/RH AUTOMATED (BEAKER) A POSITIVE [facility] Ab Scrn NEGATIVE [facility] Specimen Blood Performing Organization Address City/[facility] [place] Phone Number [address] [address] aPTT (11/28/2018 4:18 PM VOCATIONAL REHABILITATION TECHNICIAN) PTT 38.2 (H) 22.5 - 36.0 seconds [facility] Specimen Blood Performing Organization Address [facility] [place] Phone Number [address] [address] C[place] Prothrombin time/INR (11/28/2018 4:18 PM VOCATIONAL REHABILITATION TECHNICIAN) Protime 15.1 (H) 11.7 - 14.7 seconds [facility] INR 1.2 <=5.9 [facility] Specimen Blood Narrative Performed At RECOMMENDED COUMADIN/WARFARIN INR THERAPY [facility] RANGES STANDARD DOSE: 2.0 - 3.0 Includes: PROPHYLAXIS for venous thrombosis, systemic embolization; TREATMENT for venous thrombosis and/or pulmonary embolus. HIGH RISK: Target INR is 2.5-3.5 for patients with mechanical heart valves. Performing Organization Address City/[facility] [place] Phone Number [facility] [address] [place] [address] [phone] [place] Hemoglobin A1c (11/28/2018 4:18 PM VOCATIONAL REHABILITATION TECHNICIAN) Hemoglobin A1C 4.5 4.3 - 6.1 % [facility] Specimen Blood Performing Organization Address [facility] [place] Phone Number [place] [phone] [place], [place] [phone] [place] Lipid panel (11/28/2018 4:18 PM VOCATIONAL REHABILITATION TECHNICIAN) Triglycerides 90 mg/dL [facility] Cholesterol 107 mg/dL [facility] HDL 35 mg/dL [facility] LDL Calculated 54 mg/dL [facility] Specimen Blood Narrative Performed At Triglyceride Reference Range: [facility] Low Risk <150 [id number] High Risk 200-499 Very High Risk>=500 Cholesterol Reference Range: Low Risk <200 [id number] High Risk>240 HDL Cholesterol Reference Range: Low Risk >=60 High Risk <40 LDL Cholesterol Reference Range: Optimal<100 Near [id number] Very High >=190 Performing Organization Address City/[facility] [place] Phone Number [place] [phone] [place], [place] [phone] [place] Comprehensive metabolic panel (11/28/2018 4:18 PM VOCATIONAL REHABILITATION TECHNICIAN) Protein, Total 7.8 6.0 - 8.3 gm/dL [facility] Albumin 3.6 3.5 - 5.0 g/dL [facility] Alkaline Phosphatase 77 40 - 150 U/L [facility] Total Bilirubin 0.7 0.2 - 1.2 mg/dL [facility] Sodium 134 (L) 136 - 145 meq/L [facility] Potassium 4.4 3.5 - 5.1 meq/L [facility] Chloride 99 98 - 107 meq/L [facility] CO2 26 22 - 29 meq/L [facility] BUN 62 (H) 7 - 21 mg/dL [facility] Creatinine 4.30 (H) 0.57 - 1.25 mg/dL [facility] Glucose 95 70 - 105 mg/dL [facility] Calcium 8.7 8.4 - 10.2 mg/dL [facility] AST 43 (H) 5 - 34 U/L [facility] ALT 37 6 - 55 U/L [facility] EGFR 14Comment: ESTIMATED GFR mL/min/1.73 sq m [facility] IS NOT ACCURATE [facility] CREATININE CLEARANCE IN PREDICTING GLOMERULAR FILTRATION RATE. ESTIMATED GFR IS NOT APPLICABLE FOR DIALYSIS PATIENTS. Specimen Blood Performing Organization Address City/State/Zipcode Phone Number [facility] [address] [place] [address] [phone] CENTER after 12/06/2017 Insurance Payer Benefit Plan / Group Subscriber ID Type Phone Address [facility] HMO/POS/OPEN ACCESS xxxxxxxxxxx HMO/POS Advance Directives For more information, please contact:[address] [phone] Code Status Date Activated Date Inactivated Comments Full Code 11/28/2018 4:06 PM This code status was determined by: Patient
[2018-12-07] MEDS ORDERED: NA CHLORIDE 0.9% 500 ML ONE (03:49)
[2018-12-07] MEDS ORDERED: THIAMINE 200 MG/2 ML INJ ONE (03:49)
[2018-12-07 03:58] LABS: Absolute Lymphocytes (CBC) 1.3 K/uL (0.7-4.9); Absolute Monocytes 0.8 K/uL (0.1-1.3); Absolute Neutrophil 2.4 K/uL (1.8-8.0); Basophils % 1.8 % (0-1.3); Eosinophils % 6.4 % (0-4.4); Hematocrit 36.4 % (39.6-49.0); Lymphocytes % 26.4 % (15.3-44.8); MPV 8.2 fL (7.6-11.3); Monocytes % 15.8 % (3.3-12.3); RBC Red Blood Cell Count 4.37 M/uL (4.33-5.43)
[2018-12-07 04:33] LABS: ALT/SGPT 76 U/L (12-78); AST/SGOT 90 U/L (15-37); Albumin 3.7 g/dL (3.4-5.0); Alkaline Phosphatase 100 U/L (45-117); BUN Blood Urea Nitrogen 11 mg/dL (7-18); Bicarbonate 26 mmol/L (21-32); Bilirubin Direct 0.3 mg/dL (0-0.2); Bilirubin Total 0.5 mg/dL (0.2-1.0); Glucose Level 86 mg/dL (74-106); Potassium 3.9 mmol/L (3.5-5.1); Protein, Total 9.1 g/dL (6.4-8.2); Sodium Level 140 mmol/L (136-145); Troponin (Emerg Dept Use Only) < 0.02 ng/mL (0.0-0.045)
[2018-12-07 04:47] LABS: Blood Morphology Comment NOT SEEN (NOT SEEN); Platelet Estimate ADEQ
--- NOTE | 2018-12-07 05:16 | ER ---
Nurse's Notes [facility] Name: Chetan Case Age: 63 yrs Sex: Male : 1955 Arrival Date: 12/07/2018 Time: 02:34 Bed 17 Private MD: Diagnosis: Nail disorder, unspecified-partial nail avulsion;Alcohol abuse with intoxication Presentation: 12/07 02:40 Presenting complaint: EMS states: patient is alcohol intoxicated and pain at left big rr5 toe. he had a previous stent weeks ago, police department came to his house and let the patient choose if assisted or hospital, he chose to be with us. 02:40 Transition of care: patient was not received from another setting of care. Onset of rr5 symptoms was December 07, 2018. Risk Assessment: Do you want to hurt yourself or someone else? Patient reports no desire to harm self or others. Initial Sepsis Screen: Does the patient meet any 2 criteria? No. Patient's initial sepsis screen is negative. Does the patient have a suspected source of infection? No. Patient's initial sepsis screen is negative. Note positive alcohol breath and detach nail left big toe. Care prior to arrival: None. 02:40 Method Of Arrival: EMS: [facility] rr5 02:40 Acuity: OCHOA 3 rr5 Triage Assessment: 02:50 General: Behavior is uncooperative, alcohol intoxicated. rr5 Historical: - Allergies: 02:50 Bees; rr5 - Home Meds: 02:50 albuterol sulfate 90 mcg/actuation Inhl HFAA 1 puff every 6 hours [Active]; rr5 Carisoprodol Oral 1 tab every 6 hours [Active]; furosemide 40 mg Oral tab 1 tab once daily [Active]; hydrocodone-acetaminophen 7.5-325 mg Oral tab every 4-6 hours [Active]; pantoprazole 40 mg Oral TbEC 1 tab once daily [Active]; Xanax 1 mg Oral tab 1 tab nightly [Active]; - PMHx: 02:50 Atrial Fib; CHF; Chronic pain; COPD; Hypertension; Myocardial infarction; stent; rr5 - Immunization history:: Adult Immunizations unknown. - Social history:: Smoking status: Patient/guardian denies using tobacco, Patient uses alcohol, Patient/guardian denies using street drugs. - Ebola Screening: : Unable to complete screening because. Screenin:50 Abuse screen: Denies threats or abuse. Denies injuries from another. Nutritional rr5 screening: No deficits noted. Tuberculosis screening: No symptoms or risk factors identified. Fall Risk IV access (20 points). Ambulatory Aid- None/Bed Rest/Nurse Assist (0 pts). Gait- Impaired (20 pts.). Mental Status- Overestimates/Forgets Limitations (15 pts.). Total Kamara Fall Scale indicates High Risk Score (45 or more points). Fall prevention measures have been instituted. Side Rails Up X 2 Placed Close to Nursing Station Frequent Obs/Assessments Occuring As available patient and family educated on Fall Prevention Program and Strategies. Assessment: 02:50 General: Appears in no apparent distress. unkempt, alcohol intoxicated. rr5 02:50 Pain: Denies pain. Neuro: Level of Consciousness is awake, obeys commands, alcohol rr5 intoxicated. Oriented to disoriented. Cardiovascular: Capillary refill < 3 seconds Patient's skin is warm and dry. Respiratory: Airway is patent Respiratory effort is even, unlabored, Respiratory pattern is regular, symmetrical. GI: Abdomen is round. : No signs and/or symptoms were reported regarding the genitourinary system. Urine is clear. EENT: No signs and/or symptoms were reported regarding the EENT system. Derm: Skin is intact, Skin temperature is warm. Musculoskeletal: Capillary refill < 3 seconds, Range of motion: intact in all extremities. Injury Description: detach nail left big toe. 03:15 Reassessment: Patient appears in no apparent distress at this time. removed all the rr5 cardiac wires ID band and get out on bed. unsteady gait noted. he wants to go out and call his . tried multiple times the number recorded no one answered. and for the call last time someone answered the employer of the and said he don't know the cellphone number of the patients . ED provider talk to the patient and send him back to room. 03:40 Reassessment: his private nurse came and talk to patient. wound cleaning done. rr5 04:25 Reassessment: Patient is alert, oriented x 3, equal unlabored respirations, skin rr5 warm/dry/pink. asleep on bed comfortably. 05:25 Reassessment: Patient appears in no apparent distress at this time. Patient is alert, rr5 oriented x 3, equal unlabored respirations, skin warm/dry/pink. patient is for discharge. called his sorting supervisor [phone]. responded that they are coming now. 05:40 Reassessment: Patient appears in no apparent distress at this time. Patient is alert, rr5 oriented x 3, equal unlabored respirations, skin warm/dry/pink. discharge instruction given and explained without complaints made. witness by sorting supervisor mr. Rodriguez. Patient denies pain at this time. Patient states feeling better. Patient states symptoms have improved. Vital Signs: 02:40 BP 109 / 73; Pulse 69; Resp 15; Temp 97.9; Pulse Ox 99% ; Weight 95.25 kg; Height 5 ft. rr5 10 in. (177.80 cm); Pain 5/10; 03:30 BP 105 / 70; Pulse 61; Resp 17; Pulse Ox 96% ; rr5 04:20 BP 115 / 70; Pulse 65; Resp 17; Pulse Ox 98% ; rr5 05:20 BP 111 / 71; Pulse 60; Resp 17; Pulse Ox 98% ; rr5 02:40 Body Mass Index 30.13 (95.25 kg, 177.80 cm) rr5 ED Course: 02:34 Patient arrived in ED. ds1 02:39 Ty Scruggs RN is Primary Nurse. rr5 02:41 Parminder Benavidez MD is Attending Physician. fredy 02:50 Arm band placed on right wrist. rr5 02:50 Patient has correct armband on for positive identification. Placed in gown. Bed in low rr5 position. Call light in reach. Side rails up X2. surveillance monitor on. Pulse ox on. NIBP on. 02:54 Triage completed. rr5 03:30 Inserted saline lock: 20 gauge in right antecubital area, using aseptic technique. rr5 ,using aseptic technique. electrical and instrument technician Jae Blood collected. 03:40 Dressings: Kerlix X 1; left big toe. rr5 05:15 Heber Weiss DPM is Referral Physician. fredy 05:41 No provider procedures requiring assistance completed. IV discontinued, intact, No rr5 redness/swelling at site. Pressure dressing applied. Administered Medications: 03:40 Drug: NS 0.9% 500 ml Route: IV; Rate: bolus; Site: right forearm; rr5 05:00 Follow up: Response: No adverse reaction; IV Status: Completed infusion; IV Intake: rr5 500ml 03:40 Drug: Thiamine 100 mg Route: IV; Rate: bolus; Site: right forearm; rr5 05:00 Follow up: Response: No adverse reaction; IV Status: Completed infusion rr5 Intake: 05:00 IV: 500ml; Total: 500ml. rr5 Outcome: 05:15 Discharge ordered by MD. daniel 05:41 Discharged to home ambulatory, Mr rodriguez rr5 05:41 Condition: stable 05:41 Discharge instructions given to patient, mr. rodriguez Instructed on discharge instructions, follow up and referral plans. Demonstrated understanding of instructions, follow-up care. 05:44 Patient left the ED. rr5 Signatures: Parminder Benavidez MD MD cha Sanford, Demi ds1 Ty Scruggs, RN RN rr5
--- NOTE | 2018-12-07 05:17 | EDPHYS ---
Physician Documentation [facility] Name: Chetan Case Age: 63 yrs Sex: Male : 1955 Arrival Date: 12/07/2018 Time: 02:34 Bed 17 Private MD: ED Physician Parminder Benavidez HPI: 12/07 03:24 This 63 yrs old Male presents to ER via EMS with complaints of pain at left fredy big toe, alcohol intoxication. 03:24 The patient presents with pain, that is acute, partial nail avulsion. The complaints fredy affect the left foot. Modifying factors: The symptoms are alleviated by nothing, the symptoms are aggravated by movement, wearing shoes. Associated signs and symptoms: The patient has no apparent associated signs or symptoms. Historical: - Allergies: 02:50 Bees; rr5 - Home Meds: 02:50 albuterol sulfate 90 mcg/actuation Inhl HFAA 1 puff every 6 hours [Active]; rr5 Carisoprodol Oral 1 tab every 6 hours [Active]; furosemide 40 mg Oral tab 1 tab once daily [Active]; hydrocodone-acetaminophen 7.5-325 mg Oral tab every 4-6 hours [Active]; pantoprazole 40 mg Oral TbEC 1 tab once daily [Active]; Xanax 1 mg Oral tab 1 tab nightly [Active]; - PMHx: 02:50 Atrial Fib; CHF; Chronic pain; COPD; Hypertension; Myocardial infarction; stent; rr5 - Immunization history:: Adult Immunizations unknown. - Social history:: Smoking status: Patient/guardian denies using tobacco, Patient uses alcohol, Patient/guardian denies using street drugs. - Ebola Screening: : Unable to complete screening because. ROS: 03:26 Constitutional: Negative for fever, chills, and weight loss, Eyes: Negative for injury, fredy pain, redness, and discharge, ENT: Negative for injury, pain, and discharge, Neck: Negative for injury, pain, and swelling, Cardiovascular: Negative for chest pain, palpitations, and edema, Respiratory: Negative for shortness of breath, cough, wheezing, and pleuritic chest pain, Abdomen/GI: Negative for abdominal pain, nausea, vomiting, diarrhea, and constipation, Back: Negative for injury and pain, : Negative for injury, bleeding, discharge, and swelling, Skin: Negative for injury, rash, and discoloration, Neuro: Negative for headache, weakness, numbness, tingling, and seizure, Psych: Negative for depression, anxiety, suicide ideation, homicidal ideation, and hallucinations, Allergy/Immunology: Negative for hives, rash, and allergies, Endocrine: Negative for neck swelling, polydipsia, polyuria, polyphagia, and marked weight changes, Hematologic/Lymphatic: Negative for swollen nodes, abnormal bleeding, and unusual bruising. 03:26 MS/extremity: Positive for pain, tenderness. Exam: 03:26 Constitutional: This is a well developed, well nourished patient who is awake, alert, fredy and in no acute distress. Head/Face: Normocephalic, atraumatic. Eyes: Pupils equal round and reactive to light, extra-ocular motions intact. Lids and lashes normal. Conjunctiva and sclera are non-icteric and not injected. Cornea within normal limits. Periorbital areas with no swelling, redness, or edema. ENT: Nares patent. No nasal discharge, no septal abnormalities noted. Tympanic membranes are normal and external auditory canals are clear. Oropharynx with no redness, swelling, or masses, exudates, or evidence of obstruction, uvula midline. Mucous membranes moist. Neck: Trachea midline, no thyromegaly or masses palpated, and no cervical lymphadenopathy. Supple, full range of motion without nuchal rigidity, or vertebral point tenderness. No Meningismus. Chest/axilla: Normal chest wall appearance and motion. Nontender with no deformity. No lesions are appreciated. Cardiovascular: Regular rate and rhythm with a normal S1 and S2. No gallops, murmurs, or rubs. Normal PMI, no JVD. No pulse deficits. Respiratory: Lungs have equal breath sounds bilaterally, clear to auscultation and percussion. No rales, rhonchi or wheezes noted. No increased work of breathing, no retractions or nasal flaring. Abdomen/GI: Soft, non-tender, with normal bowel sounds. No distension or tympany. No guarding or rebound. No evidence of tenderness throughout. Back: No spinal tenderness. No costovertebral tenderness. Full range of motion. Skin: Warm, dry with normal turgor. Normal color with no rashes, no lesions, and no evidence of cellulitis. Neuro: Awake and alert, GCS 15, oriented to person, place, time, and situation. Cranial nerves II-XII grossly intact. Motor strength 5/5 in all extremities. Sensory grossly intact. Cerebellar exam normal. Normal gait. Psych: Awake, alert, with orientation to person, place and time. Behavior, mood, and affect are within normal limits. 03:26 Musculoskeletal/extremity: ROM: intact in all extremities, full active range of motion, full passive range of motion, Circulation is intact in all extremities. Sensation intact. Compartment Syndrome exam of affected extremity: is normal. DVT Exam: no swelling, no tenderness, negative Homans' sign noted on exam, no appreciated bluish discoloration, no erythema, no increased warmth, pain. Vital Signs: 02:40 BP 109 / 73; Pulse 69; Resp 15; Temp 97.9; Pulse Ox 99% ; Weight 95.25 kg; Height 5 ft. rr5 10 in. (177.80 cm); Pain 5/10; 03:30 BP 105 / 70; Pulse 61; Resp 17; Pulse Ox 96% ; rr5 04:20 BP 115 / 70; Pulse 65; Resp 17; Pulse Ox 98% ; rr5 05:20 BP 111 / 71; Pulse 60; Resp 17; Pulse Ox 98% ; rr5 02:40 Body Mass Index 30.13 (95.25 kg, 177.80 cm) rr5 MDM: 02:41 Patient medically screened. [facility] 04:12 Data reviewed: vital signs, nurses notes, lab test result(s), EKG. [facility] 12/07 03:23 Order name: Acetaminophen; Complete Time: 05:14 [facility] 12/07 03:23 Order name: Basic Metabolic Panel; Complete Time: 05:14 [facility] 12/07 03:23 Order name: CBC with Diff; Complete Time: 05:14 [facility] 12/07 03:23 Order name: ETOH Level; Complete Time: 04:31 [facility] 12/07 03:23 Order name: Hepatic Function; Complete Time: 05:14 [facility] 12/07 03:23 Order name: PT-INR; Complete Time: 04:11 [facility] 12/07 03:23 Order name: Ptt, Activated; Complete Time: 04:11 [facility] 12/07 03:23 Order name: Salicylate; Complete Time: 05:14 [facility] 12/07 03:23 Order name: Troponin (emerg Dept Use Only); Complete Time: 05:14 [facility] 12/07 03:50 Order name: Urine Dipstick--Ancillary (enter results) mw2 12/07 04:11 Order name: Manual Differential; Complete Time: 05:14 [facility] 12/07 03:23 Order name: EKG; Complete Time: 03:24 [facility] 12/07 03:23 Order name: EKG - Nurse/Tech; Complete Time: 03:46 [facility] 12/07 03:23 Order name: IV Saline Lock; Complete Time: 03:57 [facility] 12/07 03:23 Order name: Labs collected and sent; Complete Time: 03:57 [facility] 12/07 03:23 Order name: Urine Dipstick-Ancillary (obtain specimen); Complete Time: 03:57 [facility] 12/07 03:23 Order name: Wound Care; Complete Time: 03:57 [facility] Administered Medications: 03:40 Drug: NS 0.9% 500 ml Route: IV; Rate: bolus; Site: right forearm; rr5 05:00 Follow up: Response: No adverse reaction; IV Status: Completed infusion; IV Intake: rr5 500ml 03:40 Drug: Thiamine 100 mg Route: IV; Rate: bolus; Site: right forearm; rr5 05:00 Follow up: Response: No adverse reaction; IV Status: Completed infusion rr5 Disposition: 12/07/18 05:15 Discharged to Home. Impression: Nail disorder, unspecified - partial nail avulsion, Alcohol abuse with intoxication. - Condition is Stable. - Discharge Instructions: Alcohol Intoxication, Nail Avulsion, Fingernail or Toenail Removal, Adult, Alcohol Intoxication, [id number], Fingernail or Toenail Removal, Care After. - Medication Reconciliation Form, Thank You Letter, Antibiotic Education, Prescription Opioid Use form. - Follow up: Private Physician; When: 2 - 3 days; Reason: Recheck today's complaints, Continuance of care, Re-evaluation by your physician. Follow up: Heber Weiss; When: 1 - 2 days; Reason: Recheck today's complaints, Continuance of care, Re-evaluation by your physician. - Problem is new. - Symptoms have improved. Signatures: Dispatcher [employer] EDParminder Avery MD MD cha Roque, Raymond, RN RN rr5 Corrections: (The following items were deleted from the chart) 05:44 05:15 12/07/2018 05:15 Discharged to Home. Impression: Nail disorder, unspecified - rr5 partial nail avulsion; Alcohol abuse with intoxication. Condition is Stable. Discharge Instructions: Alcohol Intoxication, Nail Avulsion, Fingernail or Toenail Removal, Adult, Alcohol Intoxication, [id number], Fingernail or Toenail Removal, Care After. Forms are Medication Reconciliation Form, Thank You Letter, Antibiotic Education, Prescription Opioid Use. Follow up: Private Physician; When: 2 - 3 days; Reason: Recheck today's complaints, Continuance of care, Re-evaluation by your physician. Follow up: Heber Weiss; When: 1 - 2 days; Reason: Recheck today's complaints, Continuance of care, Re-evaluation by your physician. Problem is new. Symptoms have improved. fredy
[2018-12-07 05:57] VITALS: TEMP 97.9
[2018-12-07 06:00] VITALS: O2SAT 98
[2018-12-07 06:02] VITALS: BP 111/71
--- NOTE | 2018-12-07 07:15 | EKG ---
Test Date: 2018-12-07 Test Time: 03:41:53 Intelligence Specialist: LEXY MEASUREMENT RESULTS: Intervals: Rate: 64 LA: 180 QRSD: 94 QT: 430 QTc: 443 [place]: P: 64 LA: 180 QRS: 91 T: 55 INTERPRETIVE STATEMENTS: Normal sinus rhythm Rightward axis Borderline ECG Compared to ECG 12/07/2018 03:41:26 Right-axis deviation now present Atrial premature complex(es) no longer present ST (T wave) deviation no longer present Electronically Signed On 12-07-18 07:14:36 TEEN COUNSELOR by John Devries
[2018-12-07 07:51] LABS: Urine Blood NEGATIVE (NEG); Urine Glucose NEGATIVE (NEG); Urine Protein 1+ (NEG); Urine pH 6.5 (5.0-7.0)
== END 2018-12-07 05:44 | disposition home or self-care (01) ==
LOC: ER 02:23
DX: S91.202A Unspecified open wound of left great toe with damage to nail, initial encounter (principal); F10.929 Alcohol use, unspecified with intoxication, unspecified; I48.91 Unspecified atrial fibrillation; I50.9 Heart failure, unspecified; J44.9 Chronic obstructive pulmonary disease, unspecified; I10 Essential (primary) hypertension
CPT/HCPCS: 36415; 80048; 80076; 80320; 80329; 81003; 84484; 85025; 85610; 85730; 93005; 96365; 99284; J3411

== ENCOUNTER 2019-05-16 23:10 | Emergency (ER) | payer OTHER ==
--- NOTE | 2019-05-17 00:39 | ER ---
Nurse's Notes [facility] Name: Chetan Case Age: 64 yrs Sex: Male : 1955 Arrival Date: 05/16/2019 Time: 23:18 Bed 18 Private MD: John Albright H Diagnosis: Medical screening exam Presentation: 05/16 23:21 Presenting complaint: Patient states: back pain, shoulder pain, "all over body aches" ak1 pt sees "pain clinic" pt was taking soma's now taking Norcos from pain clinic. Transition of care: patient was not received from another setting of care. Onset of symptoms is unknown. Risk Assessment: Do you want to hurt yourself or someone else? Patient reports no desire to harm self or others. Initial Sepsis Screen: Does the patient meet any 2 criteria? No. Patient's initial sepsis screen is negative. Does the patient have a suspected source of infection? No. Patient's initial sepsis screen is negative. Care prior to arrival: None. 23:21 Acuity: OCHOA 4 ak1 23:21 Method Of Arrival: Ambulatory ak1 Triage Assessment: 23:24 General: Appears in no apparent distress. Behavior is drowsy. ak1 Historical: - Allergies: 23:24 Bees; ak1 - Home Meds: 23:24 furosemide 40 mg Oral tab 1 tab once daily [Active]; Xanax 1 mg Oral tab 1 tab nightly ak1 [Active]; pantoprazole 40 mg Oral TbEC 1 tab once daily [Active]; hydrocodone-acetaminophen 7.5-325 mg Oral tab every 4-6 hours [Active]; Carisoprodol Oral 1 tab every 6 hours [Active]; albuterol sulfate 90 mcg/actuation Inhl HFAA 1 puff every 6 hours [Active]; - PMHx: 23:24 Atrial Fib; CHF; Chronic pain; COPD; Hypertension; Myocardial infarction; stent; ak1 - PSHx: 23:24 Heart stents; ak1 - Immunization history:: Adult Immunizations unknown. - Social history:: Smoking status: Smoking status: Patient/guardian denies using tobacco. - Ebola Screening: : No symptoms or risks identified at this time. Screenin:30 Abuse screen: Denies threats or abuse. Nutritional screening: No deficits noted. jb4 Tuberculosis screening: No symptoms or risk factors identified. Fall Risk None identified. Assessment: 23:30 General: Appears in no apparent distress. comfortable, Behavior is calm, cooperative, jb4 appropriate for age. Pain: Complains of pain in generalized pain. Pain does not radiate. Pain currently is 5 out of 10 on a pain scale. Neuro: Level of Consciousness is awake, alert, obeys commands, Oriented to person, place, time, situation. Cardiovascular: Heart tones S1 S2 present Patient's skin is warm and dry. Pulses are 2+ in right dorsalis pedis artery and left dorsalis pedis artery are 3+ in right radial artery and left radial artery Edema is 1+ to left foot and right foot. Respiratory: Airway is patent Respiratory effort is even, unlabored, Respiratory pattern is regular, symmetrical, Breath sounds are clear bilaterally. GI: No signs and/or symptoms were reported involving the gastrointestinal system. : No signs and/or symptoms were reported regarding the genitourinary system. EENT: No signs and/or symptoms were reported regarding the EENT system. Derm: Skin is intact, Skin is pink, warm \\T\\ dry. Musculoskeletal: Circulation, motion, and sensation intact. Range of motion: intact in all extremities, Swelling present in right mancuso, anterior aspect of right ankle, dorsum of right foot, left mancuso, anterior aspect of left ankle and dorsum of left foot. 05/17 00:29 Reassessment: Patient appears in no apparent distress at this time. Patient and/or jb4 family updated on plan of care and expected duration. Pain level reassessed. Patient is alert, oriented x 3, equal unlabored respirations, skin warm/dry/pink. Pt ambulated out of ED with family. steady gait. Vital Signs: 05/16 23:24 BP 141 / 79; Pulse 79; Resp 16; Temp 98.6; Pulse Ox 97% on R/A; Weight 99.79 kg (R); ak1 Height 5 ft. 8 in. (172.72 cm) (R); Pain 2/10; 05/17 00:15 BP 133 / 82; Pulse 67; Resp 18; Pulse Ox 99% on R/A; jb4 05/16 23:24 Body Mass Index 33.45 (99.79 kg, 172.72 cm) ak1 ED Course: 05/16 23:18 Patient arrived in ED. es 23:19 John Ablright DO is Private Physician. es 23:23 Triage completed. ak1 23:24 Arm band placed on Patient placed in an exam room, on a stretcher, Patient notified of ak1 wait time. 23:30 Patient has correct armband on for positive identification. Bed in low position. Call jb4 light in reach. Side rails up X 1. Pulse ox on. NIBP on. 23:51 Tavon Lujan MD is Attending Physician. tw4 05/17 00:26 Bjorn Moncada, RN is Primary Nurse. jb4 00:31 No provider procedures requiring assistance completed. Patient did not have IV access jb4 during this emergency room visit. 00:36 John Albright DO is Referral Physician. tw4 Administered Medications: No medications were administered Outcome: 00:31 Medical screen evaluation completed per provider. Patient declined treatment. jb4 00:31 Condition: stable 00:31 Following a medical screening exam, the patient was provided information regarding alternative care sites and resources available per registration personnel. 00:37 Discharge ordered by . tw4 00:42 Patient left the ED. jb4 Signatures: Liss Valenzuela Amber RN RN ak1 Bjorn Moncada, RN RN jb4 Tavon Lujan MD MD tw4
--- NOTE | 2019-05-17 00:40 | EDPHYS ---
Physician Documentation [facility] Name: Chetan Case Age: 64 yrs Sex: Male : 1955 Arrival Date: 05/16/2019 Time: 23:18 Bed 18 Private MD: John Albright H ED Physician Tavon Lujan HPI: 05/17 00:21 This 64 yrs old Male presents to ER via Ambulatory with complaints of Cough, tw4 Palpitations, Body ache. 00:21 The patient or guardian reports body aches. Onset: The symptoms/episode began/occurred tw4 yesterday. Severity of symptoms: At their worst the symptoms were very mild, in the emergency department the symptoms have resolved. Modifying factors: The symptoms are alleviated by nothing, the symptoms are aggravated by nothing. Associated signs and symptoms: The patient has no apparent associated signs or symptoms. The patient has not experienced similar symptoms in the past. Historical: - Allergies: 05/16 23:24 Bees; ak1 - Home Meds: 23:24 furosemide 40 mg Oral tab 1 tab once daily [Active]; Xanax 1 mg Oral tab 1 tab nightly ak1 [Active]; pantoprazole 40 mg Oral TbEC 1 tab once daily [Active]; hydrocodone-acetaminophen 7.5-325 mg Oral tab every 4-6 hours [Active]; Carisoprodol Oral 1 tab every 6 hours [Active]; albuterol sulfate 90 mcg/actuation Inhl HFAA 1 puff every 6 hours [Active]; - PMHx: 23:24 Atrial Fib; CHF; Chronic pain; COPD; Hypertension; Myocardial infarction; stent; ak1 - PSHx: 23:24 Heart stents; ak1 - Immunization history:: Adult Immunizations unknown. - Social history:: Smoking status: Smoking status: Patient/guardian denies using tobacco. - Ebola Screening: : No symptoms or risks identified at this time. ROS: 05/17 00:21 Eyes: Negative for injury, pain, redness, and discharge, Cardiovascular: Negative for tw4 chest pain, palpitations, and edema, Respiratory: Negative for shortness of breath, cough, wheezing, and pleuritic chest pain, Abdomen/GI: Negative for abdominal pain, nausea, vomiting, diarrhea, and constipation. Skin: Negative for injury, rash, and discoloration, Neuro: Negative for headache, weakness, numbness, tingling, and seizure. Constitutional: Positive for body aches, Negative for chills, fatigue, fever, malaise, poor PO intake. Back: Positive for pain at rest. MS/extremity: Positive for swelling. Exam: 00:21 Constitutional: This is a well developed, well nourished patient who is awake, alert, tw4 and in no acute distress. Head/Face: Normocephalic, atraumatic. Chest/axilla: Normal chest wall appearance and motion. Nontender with no deformity. No lesions are appreciated. Cardiovascular: Regular rate and rhythm with a normal S1 and S2. No gallops, murmurs, or rubs. Normal PMI, no JVD. No pulse deficits. Respiratory: Lungs have equal breath sounds bilaterally, clear to auscultation and percussion. No rales, rhonchi or wheezes noted. No increased work of breathing, no retractions or nasal flaring. Abdomen/GI: Soft, non-tender, with normal bowel sounds. No distension or tympany. No guarding or rebound. No evidence of tenderness throughout. Back: No spinal tenderness. No costovertebral tenderness. Full range of motion. Skin: Warm, dry with normal turgor. Normal color with no rashes, no lesions, and no evidence of cellulitis. MS/ Extremity: Pulses equal, no cyanosis. Neurovascular intact. Full, normal range of motion. Neuro: Awake and alert, GCS 15, oriented to person, place, time, and situation. Cranial nerves II-XII grossly intact. Motor strength 5/5 in all extremities. Sensory grossly intact. Cerebellar exam normal. Normal gait. Vital Signs: 05/16 23:24 BP 141 / 79; Pulse 79; Resp 16; Temp 98.6; Pulse Ox 97% on R/A; Weight 99.79 kg (R); ak1 Height 5 ft. 8 in. (172.72 cm) (R); Pain 2/10; 05/17 00:15 BP 133 / 82; Pulse 67; Resp 18; Pulse Ox 99% on R/A; jb4 05/16 23:24 Body Mass Index 33.45 (99.79 kg, 172.72 cm) ak1 MDM: 05/16 23:51 Patient medically screened. tw4 05/17 00:21 Differential Diagnosis: Obstructed Airway Bronchitis Influenza. Data reviewed: vital tw4 signs, nurses notes. Data interpreted: Pulse oximetry: Interpretation: normal. Counseling: I had a detailed discussion with the patient and/or guardian regarding: the historical points, exam findings, and any diagnostic results supporting the discharge/admit diagnosis. Medical screen evaluation completed. [facility] emergency medical condition absent. Administered Medications: No medications were administered Disposition: 05/17/19 00:37 Discharged to Home. Impression: Medical screening exam. - Condition is Stable. - Discharge Instructions: Medical Screening Exam. - Medication Reconciliation Form, Thank You Letter, Antibiotic Education, Prescription Opioid Use form. - Follow up: John Albright DO; When: Upon discharge from the Emergency Department; Reason: If symptoms return, Recheck today's complaints, Continuance of care. - Problem is new. - Symptoms have improved. Signatures: Donna Nogueira RN RN ak1 Bjorn Moncada RN RN jb4 Tavon Lujan MD MD tw4 Corrections: (The following items were deleted from the chart) 00:42 00:37 05/17/2019 00:37 Discharged to Home. Impression: Medical screening exam. jb4 Condition is Stable. Forms are Medication Reconciliation Form, Thank You Letter, Antibiotic Education, Prescription Opioid Use. Follow up: John Albright; When: Upon discharge from the Emergency Department; Reason: If symptoms return, Recheck today's complaints, Continuance of care. Problem is new. Symptoms have improved. tw4
[2019-05-17 03:28] VITALS: TEMP 98.6
[2019-05-17 03:30] VITALS: BP 133/82; O2SAT 99
== END 2019-05-17 00:42 | disposition home or self-care (01) ==
LOC: ER 23:10
DX: Z13.9 Encounter for screening, unspecified (principal); R05 Cough; I48.91 Unspecified atrial fibrillation; I11.0 Hypertensive heart disease with heart failure; I50.9 Heart failure, unspecified; J44.9 Chronic obstructive pulmonary disease, unspecified; I25.2 Old myocardial infarction; Z91.030 Bee allergy status
CPT/HCPCS: 99282

== ENCOUNTER 2021-03-31 13:29 | Emergency (ER) | payer OTHER ==
--- NOTE | 2021-03-31 16:46 | RAD REPORT ---
EXAM DESCRIPTION: Gen Single View03/31/2021 4:08 pm CLINICAL HISTORY: Cough COMPARISON: 2014 FINDINGS: Upper lobe vessels are prominent indicative pulmonary venous hypertension The lungs appear clear of acute infiltrate. The heart is mildly to moderately enlarged
--- NOTE | 2021-03-31 17:01 | ER ---
Nurse's Notes [facility] Name: Chetan Case Age: 66 yrs Sex: Male : 1955 Arrival Date: 03/31/2021 Time: 13:32 Bed 20 Private MD: Diagnosis: Influenza due to certain identified influenza viruses Presentation: 03/31 13:59 Chief complaint: Sore throat and runny nose x 2 days. Coronavirus screen: At this time, hb the client does not indicate any symptoms associated with coronavirus-19. Ebola Screen: No symptoms or risks identified at this time. Initial Sepsis Screen: Does the patient meet any 2 criteria? No. Patient's initial sepsis screen is negative. Does the patient have a suspected source of infection? No. Patient's initial sepsis screen is negative. Risk Assessment: Do you want to hurt yourself or someone else? Patient reports no desire to harm self or others. Onset of symptoms was March 29, 2021. 13:59 Method Of Arrival: Ambulatory hb 13:59 Acuity: OCHOA 4 hb Historical: - Allergies: 14:01 Bees; hb - PMHx: 14:01 Atrial Fib; CHF; Chronic pain; COPD; Hypertension; Myocardial infarction; stent; hb - PSHx: 14:01 Heart stents; hb - Immunization history:: Client reports receiving the 2nd dose of the Covid vaccine. - Social history:: Smoking status: Patient denies any tobacco usage or history of. Vital Signs: 13:59 BP 126 / 72; Pulse 80; Resp 16; Temp 97.4; Pulse Ox 98% on R/A; Weight 95.25 kg; Height hb 5 ft. 8 in. (172.72 cm); Pain 1/10; 13:59 Body Mass Index 31.93 (95.25 kg, 172.72 cm) hb ED Course: 13:32 Patient arrived in ED. ds1 14:01 Triage completed. hb 14:01 Arm band placed on. hb 14:10 Porter Gómez PA is PHCP. jmm 14:10 Parminder Benavidez MD is Attending Physician. jmm 14:40 Aria Olmstead, OJ is Primary Nurse. tr6 16:08 Chest Single View XRAY In Process Unspecified. EDMS Administered Medications: No medications were administered Outcome: 17:00 Discharge ordered by MD. jmm 17:38 Discharged to home ambulatory. tr6 17:38 Condition: good 17:38 Discharge instructions given to patient, Instructed on discharge instructions, follow up and referral plans. medication usage, safety practices, Demonstrated understanding of instructions, follow-up care, medications, wound care, Prescriptions given X 3. 17:38 Patient left the ED. tr6 Signatures: Dispatcher [employer] EDMS Porter Gómez PA PA jmm Sanford, Demi ds1 Tracey Topete, RN RN Aria Rosenthal RN RN tr6
--- NOTE | 2021-03-31 17:01 | EDPHYS ---
Physician Documentation [facility] Name: Chetan Case Age: 66 yrs Sex: Male : 1955 Arrival Date: 03/31/2021 Time: 13:32 Bed 20 Private MD: FERNANDO Physician Parminder Benavidez HPI: 03/31 14:10 This 66 yrs old Male presents to ER via Ambulatory with complaints of Cough, jmm Runny Nose. 14:10 Onset: The symptoms/episode began/occurred gradually, 2 day(s) ago. Modifying factors: jmm The symptoms are alleviated by nothing, the symptoms are aggravated by nothing. Associated signs and symptoms: Pertinent negatives: fever. The patient has experienced similar episodes in the past. This is a 66 year old male with a history of COPD, HTN that presents ot the ED with complaints of cough, congestion, wheezing beginning approx 2 days ago. Denies fever, chest pain, sore throat. Historical: - Allergies: 14:01 Bees; hb - PMHx: 14:01 Atrial Fib; CHF; Chronic pain; COPD; Hypertension; Myocardial infarction; stent; hb - PSHx: 14:01 Heart stents; hb - Immunization history:: Client reports receiving the 2nd dose of the Covid vaccine. - Social history:: Smoking status: Patient denies any tobacco usage or history of. ROS: 14:10 Constitutional: Positive for chills. jmm 14:10 ENT: Positive for sore throat. 14:10 Respiratory: Positive for cough, wheezing. 14:10 All other systems are negative. Exam: 14:10 Constitutional: This is a well developed, well nourished patient who is awake, alert, jmm and in no acute distress. Head/Face: atraumatic. Eyes: EOMI, no conjunctival erythema appreciated 14:10 Neck: Trachea midline, Supple Chest/axilla: Normal chest wall appearance and motion. Cardiovascular: Regular rate and rhythm. No edema appreciated 14:10 Abdomen/GI: Non distended, soft Back: Normal ROM Skin: General appearance color normal MS/ Extremity: Moves all extremities, no obvious deformities appreciated, no edema noted to the lower extremities Neuro: Awake and alert, normal gait Psych: Behavior is normal, Mood is normal, Patient is cooperative and pleasant 14:10 ENT: Posterior pharynx: erythema, that is mild. 14:10 Respiratory: the patient does not display signs of respiratory distress, Respirations: normal, Breath sounds: wheezing: that is mild, is heard in the left posterior upper lobe and left posterior lower lobe. Vital Signs: 13:59 BP 126 / 72; Pulse 80; Resp 16; Temp 97.4; Pulse Ox 98% on R/A; Weight 95.25 kg; Height hb 5 ft. 8 in. (172.72 cm); Pain 1/10; 13:59 Body Mass Index 31.93 (95.25 kg, 172.72 cm) hb MDM: 14:10 Patient medically screened. [facility] 16:59 Data reviewed: vital signs, nurses notes. Counseling: I had a detailed discussion with [facility] the patient and/or guardian regarding: the historical points, exam findings, and any diagnostic results supporting the discharge/admit diagnosis, lab results, radiology results, the need for outpatient follow up, to return to the emergency department if symptoms worsen or persist or if there are any questions or concerns that arise at home. ED course: Patient is alert and non toxic in appearance in the ED. No signs of resp distress or sepsis. patient is given strict return precautions. patient understood and agrees with the plan of care. . 03/31 14:26 Order name: Flu; Complete Time: 16:25 [facility] 03/31 14:26 Order name: Strep; Complete Time: 16:25 [facility] 03/31 14:26 Order name: Chest Single View XRAY; Complete Time: 16:59 [facility] 03/31 16:23 Order name: Throat Culture EDOH 03/31 16:43 Order name: SARS-COV-2 RT PCR; Complete Time: 16:44 [facility] Administered Medications: No medications were administered Disposition: 03/31/21 17:00 Discharged to Home. Impression: Influenza due to certain identified influenza viruses. - Condition is Stable. - Discharge Instructions: Influenza, Adult. - Prescriptions for Albuterol Sulfate 90 mcg/actuation - inhale 1-2 puff by INHALATION route every 4-6 hours; 1 Inhaler. Tamiflu 75 mg Oral Capsule - take 1 tablet by ORAL route every 12 hours for 5 days; 10 tablet. orphenadrine citrate 100 mg Oral Tablet Sustained Release - take 1 tablet by ORAL route 2 times per day As needed; 20 tablet. - Medication Reconciliation Form, Thank You Letter, Antibiotic Education, Prescription Opioid Use form. - Follow up: Private Physician; When: 2 - 3 days; Reason: Recheck today's complaints, Continuance of care, Re-evaluation by your physician. Addendum: 04/02/2021 08:01 Co-signature as Attending Physician, Parminder Benavidez MD I agree with the assessment and c pena plan of care. Signatures: Dispatcher [employer] EDOH Parminder Benavidez MD MD cha Mickail, Joel, PA PA Tracey Beckford, OJ RN Aria Olmstead RN RN tr6 Corrections: (The following items were deleted from the chart) 03/31 15:03 14:43 Chest Single View ordered. [facility] EDOH 15:26 14:52 CORONAVIRUS+MR.LAB.BRZ ordered. [facility] EDMS 17:38 17:00 03/31/2021 17:00 Discharged to Home. Impression: Influenza due to certain tr6 identified influenza viruses. Condition is Stable. Forms are Medication Reconciliation Form, Thank You Letter, Antibiotic Education, Prescription Opioid Use. Follow up: Private Physician; When: 2 - 3 days; Reason: Recheck today's complaints, Continuance of care, Re-evaluation by your physician. barb
[2021-03-31 17:42] VITALS: BP 126/72; TEMP 97.4; O2SAT 98
== END 2021-03-31 17:38 | disposition home or self-care (01) ==
LOC: ER 13:29
DX: J10.1 Influenza due to other identified influenza virus with other respiratory manifestations (principal); I10 Essential (primary) hypertension; Z20.822 Contact with and (suspected) exposure to COVID-19; Z95.818 Presence of other cardiac implants and grafts; Z91.030 Bee allergy status
CPT/HCPCS: 87070; 87081; 87804 ×2; 71045; U0003; 99283

== ENCOUNTER 2021-04-28 12:39 | Emergency (ER) | payer OTHER ==
--- NOTE | 2021-04-28 13:48 | RAD REPORT ---
EXAM DESCRIPTION: CT - Head C Spine Cap Wo Con - 04/28/2021 1:12 pm CLINICAL HISTORY: PAINin the head, neck, chest and abdomen. COMPARISON: No comparisons TECHNIQUE: Axial [address] head images were obtained. Axial [address] cervical spine images were obtain ed with sagittal and coronal reconstruction images reviewed. Axial 5 mm images of the chest, abdomen and pelvis were obtained without IV contrast. Sagittal and coronal reconstruction of the chest, abdo men and pelvis performed. All CT scans are performed using dose optimization technique as appropriate and may include automated exposure control or mA/KV adjustment according to patient size. FINDINGS: No intracranial hemorrhage, mass or edema. No midline shift or abnormal fluid collection. Mastoid air cells and paranasal sinuses are clear. No skull fracture. No measurable atrophy or chron ic ischemic change. Arterial calcifications are present. CT cervical spine shows normal height and alignment. No fracture or acute finding. No disc space narr owing. No suspicious soft tissue finding. Central canal detail is inherently limited. Prominent facet joint degenerative change causes foraminal stenosis on the right at C3-4 and C4-5. CT chest shows no pneumothorax, pulmonary contusion or pleural fluid collection. No mediastinal hemat simon and the aorta and pulmonary arteries are unremarkable for non contrast study. No chest will mass or abnormal axillary finding. No displaced rib fracture or other significant bony finding. CT abdomen and pelvis show no injury to the solid abdominal viscera. Gallbladder and biliary tree are unremarkable. No bowel injury or significant finding. No free air, free fluid or abnormal stranding. No urinary bladder abnormality. Disc and bone degenerative changes are present. Approximately 50% wedge compression of T10 has been t reated with vertebroplasty procedure. An acute fracture is not identified. Kyphosis is present in the thoracic spine. Patient indicated bilateral shoulder pain. No acute or significant finding identifia ble. The AC joints are not fully imaged. IMPRESSION: No significant CT Head finding. No acute cervical spine finding seen. Prominent facet joint degenerative change with foraminal stenos is on the right at C3-4 and C4-5. No significant CT Chest finding. No specific abnormality around either shoulder joint to explain pain pattern. Superior-most aspect of each shoulder joint and the AC joints fall outside of range the evonne dy. No significant CT Abdomen and Pelvis finding.
[2021-04-28 14:18] LABS: Absolute Lymphocytes (CBC) 0.7 K/uL (0.7-4.9); Basophils % 1.4 % (0-1.3); Hematocrit 37.5 % (39.6-49.0); Lymphocytes % 18.7 % (15.3-44.8); MPV 7.6 fL (7.6-11.3); RBC Red Blood Cell Count 4.66 M/uL (4.33-5.43)
[2021-04-28 14:22] LABS: Protime INR 1.14
--- NOTE | 2021-04-28 14:25 | RAD REPORT ---
EXAM DESCRIPTION: RAD - Chest Single View - 04/28/2021 2:04 pm CLINICAL HISTORY: COUGH COMPARISON: Portable March 31 TECHNIQUE: AP portable chest image was obtained 04/28/2021 2:04 pm . FINDINGS: Chronic interstitial pattern matches the short interval study. No peripheral mass or conso lidation. Prominence of the heart size and vasculature has not changed. No measurable pleural effusio n and no pneumothorax. No acute bony abnormality seen. No acute aortic findings suspected. IMPRESSION: Heart, vasculature and lung markings remain prominent but unchanged from March 31 imaging.
[2021-04-28] MEDS ORDERED: NA CHLORIDE 0.9% 500 ML ONE (14:40)
[2021-04-28 14:45] LABS: ALT/SGPT 14 U/L (12-78); AST/SGOT 18 U/L (15-37); Albumin 3.4 g/dL (3.4-5.0); Alkaline Phosphatase 80 U/L (45-117); BUN Blood Urea Nitrogen 20 mg/dL (7-18); Bicarbonate 29 mmol/L (21-32); Bilirubin Direct 0.2 mg/dL (0-0.2); Bilirubin Total 0.6 mg/dL (0.2-1.0); Glucose Level 87 mg/dL (74-106); Lipase 43 U/L (73-393); NT PRO-BNP 2957 pg/mL (<125); Potassium 3.6 mmol/L (3.5-5.1); Protein, Total 7.8 g/dL (6.4-8.2); Sodium Level 141 mmol/L (136-145); Troponin (Emerg Dept Use Only) 0.02 ng/mL (0.0-0.045)
--- NOTE | 2021-04-28 15:03 | ER ---
Nurse's Notes [facility] Name: Chetan Case Age: 66 yrs Sex: Male : 1955 Arrival Date: 04/28/2021 Time: 12:44 Bed 14 Private MD: Diagnosis: Altered mental status, unspecified-xanax , soma usage;Fall due to bumping against object;Low back pain;Other chronic pain Presentation: 04/28 12:46 Chief complaint: EMS states: 1100 patient had synope episode fell from standing. Hit zb back of his head and back with the dresser. denies LOC, Denies current leg pain. No bruising noted at this time. Care prior to arrival: None. Mechanism of Injury: Fall from standing position. an unknown distance. 12:46 Acuity: OCHOA 3 zb 12:46 Method Of Arrival: EMS: [facility] zb 13:01 Coronavirus screen: At this time, the client does not indicate any symptoms associated zb with coronavirus-19. Ebola Screen: No symptoms or risks identified at this time. Initial Sepsis Screen: Does the patient meet any 2 criteria? No. Patient's initial sepsis screen is negative. Does the patient have a suspected source of infection? No. Patient's initial sepsis screen is negative. Risk Assessment: Do you want to hurt yourself or someone else? Patient reports no desire to harm self or others. Onset of symptoms was April 28, 2021. Historical: - Allergies: 12:49 Bees; zb - Home Meds: 12:49 Xanax 1 mg Oral tab 1 tab nightly [Active]; furosemide 40 mg Oral tab 1 tab once daily zb [Active]; Carisoprodol Oral 1 tab every 6 hours [Active]; metoprolol succinate oral [Active]; - PMHx: 12:49 Atrial Fib; CHF; Chronic pain; COPD; Hypertension; Myocardial infarction; stent; right zb hand sx; - Immunization history:: Adult Immunizations up to date, Client reports receiving the 2nd dose of the Covid vaccine, Date received: January 18, 2021. - Social history:: Smoking status: Patient denies any tobacco usage or history of. - Family history:: not pertinent. Screenin:01 Abuse screen: Denies threats or abuse. Denies injuries from another. Nutritional zb screening: No deficits noted. Tuberculosis screening: No symptoms or risk factors identified. Fall Risk Fall in past 12 months (25 points). No secondary diagnosis (0 pts). IV access (20 points). Ambulatory Aid- None/Bed Rest/Nurse Assist (0 pts). Gait- Normal/Bed Rest/Wheelchair (0 pts) Mental Status- Overestimates/Forgets Limitations (15 pts.). Total Kamara Fall Scale indicates High Risk Score (45 or more points). Fall prevention measures have been instituted. Side Rails Up X 2 Placed Close to Nursing Station Frequent Obs/Assessments Occuring As available patient and family educated on Fall Prevention Program and Strategies. Assessment: 12:47 General: Appears in no apparent distress. comfortable, Behavior is calm, cooperative, zb appropriate for age. Pain: Denies pain. Neuro: Level of Consciousness is awake, alert, obeys commands, Oriented to person, place, time, situation, Moves all extremities. Full function Speech is slurred. Cardiovascular: Reports syncope, Denies chest pain, diaphoresis, shortness of breath, Heart tones S1 S2 present Capillary refill < 3 seconds Patient's skin is warm and dry. Edema is 2+ to left ankle, left foot, left toes, right ankle, right foot and right toes. Respiratory: Airway is patent Respiratory effort is even, unlabored, Respiratory pattern is regular, symmetrical. GI: No deficits noted. Derm: Skin is intact, is healthy with good turgor, Skin is dry, Skin is normal, Skin temperature is warm. Musculoskeletal: Circulation, motion, and sensation intact. Range of motion: intact in all extremities. 13:50 Reassessment: x-ray at bedside. zb 14:12 Reassessment: Patient appears in no apparent distress at this time. Patient and/or zb family updated on plan of care and expected duration. Pain level reassessed. Patient is alert, oriented x 3, equal unlabored respirations, skin warm/dry/pink. urinal placed at bedside. advised pt to urinate inorder to collect a sample. 14:13 Reassessment: patient denies SI/HI. zb 15:00 Reassessment: Patient appears in no apparent distress at this time. Patient and/or zb family updated on plan of care and expected duration. Pain level reassessed. Patient is alert, oriented x 3, equal unlabored respirations, skin warm/dry/pink. 15:55 Reassessment: d/c pending urine. notified patient that he needs to pee in urinal. pvu. zb 15:56 Reassessment: Patient appears in no apparent distress at this time. Patient and/or zb family updated on plan of care and expected duration. Pain level reassessed. Patient is alert, oriented x 3, equal unlabored respirations, skin warm/dry/pink. Vital Signs: 13:01 BP 131 / 81; Pulse 66; Resp 16; Temp 98.2; Pulse Ox 99% on R/A; Weight 103.87 kg; zb Height 5 ft. 8 in. (172.72 cm); Pain 0/10; 13:50 BP 129 / 79; Pulse 62; Resp 16; Pulse Ox 100% on R/A; zb 15:00 BP 120 / 68; Pulse 59; Resp 17; Pulse Ox 98% on R/A; zb 15:56 BP 134 / 69; Pulse 63; Resp 18; Pulse Ox 100% on R/A; zb 13:01 Body Mass Index 34.82 (103.87 kg, 172.72 cm) zb ED Course: 12:44 Patient arrived in ED. ds1 12:44 Parminder Benavidez MD is Attending Physician. fredy 12:45 Ekaterina Thakur, RN is Primary Nurse. zb 12:47 Triage completed. zb 13:02 Patient has correct armband on for positive identification. Bed in low position. Call zb light in reach. Side rails up X2. conveyor monitor on. Pulse ox on. NIBP on. Door closed. Noise minimized. 13:02 Arm band placed on. zb 13:12 CT Traumagram (Head C Spine CAP wo con) In Process Unspecified. EDMS 14:03 Troponin (emerg Dept Use Only) Sent. mh5 14:03 PT-INR Sent. 5 14:03 NT PRO-BNP Sent. mh5 14:03 Magnesium Sent. mh5 14:03 Basic Metabolic Panel Sent. mh5 14:03 CBC with Diff Sent. mh5 14:03 LFT's Sent. mh5 14:03 Lipase Sent. mh5 14:03 Salicylate Sent. mh5 14:03 Ptt, Activated Sent. mh5 14:03 ETOH Level Sent. mh5 14:03 Acetaminophen Sent. [facility] 14:03 Protime (+INR) Sent. [facility] 14:03 NT PRO-BNP Sent. [facility] 14:03 Liver (Hepatic) Function Sent. [facility] 14:03 Magnesium Sent. [facility] 14:03 CBC with Automated Diff Sent. [facility] 14:04 XRAY Chest (1 view) In Process Unspecified. [facility] 14:04 Basic Metabolic Panel Sent. [facility] 14:04 Initial lab(s) drawn, by ED staff, sent to lab. EKG done, by ED staff, reviewed by christie Benavidez MD. 14:11 Inserted saline lock: 20 gauge in right antecubital area, using aseptic technique. zb Blood collected. 16:31 No provider procedures requiring assistance completed. IV discontinued, intact, zb bleeding controlled, No redness/swelling at site. Pressure dressing applied. Administered Medications: 14:26 Drug: NS 0.9% 500 ml Route: IV; Rate: bolus; Site: right antecubital; zb 15:57 Follow up: Response: No adverse reaction; Marked relief of symptoms; IV Status: zb Completed infusion; IV Intake: 500ml Intake: 15:57 IV: 500ml; Total: 500ml. zb Outcome: 15:02 Discharge ordered by . [facility] 16:31 Discharged to home ambulatory. zb 16:31 Condition: stable 16:31 Discharge instructions given to patient, Instructed on discharge instructions, follow up and referral plans. Demonstrated understanding of instructions, follow-up care. 16:31 Patient left the ED. zb Signatures: Dispatcher [employer] Parminder Villanueva MD MD cha Sanford, Demi ds1 Martinez, Maria Ekaterina Daniel, RN RN zb Corrections: (The following items were deleted from the chart) 12:58 12:47 Cardiovascular: Heart tones S1 S2 present Capillary refill < 3 seconds Patient's zb skin is warm and dry. zb 14:11 13:50 Pulse 62bpm; Resp 16bpm; Pulse Ox 100% RA; zb zb 15:57 15:56 BP 120 / 68; Pulse 59bpm; Resp 17bpm; Pulse Ox 98% RA; zb zb
--- NOTE | 2021-04-28 15:03 | EDPHYS ---
Physician Documentation [facility] Name: Chetan Case Age: 66 yrs Sex: Male : 1955 Arrival Date: 04/28/2021 Time: 12:44 Bed 14 Private MD: ED Physician Parminder Benavidez HPI: 04/28 12:53 This 66 yrs old Male presents to ER via EMS with complaints of Fall Injury. [facility] 12:53 Details of fall: The patient fell from an upright position, while standing, while fredy walking. Onset: The symptoms/episode began/occurred just prior to arrival, this morning. Associated injuries: The patient sustained injury to the head, neck injury, upper back injury, injury to the low back. Severity of symptoms: At their worst the symptoms were mild, in the emergency department the symptoms are unchanged. The patient has not experienced similar symptoms in the past. Historical: - Allergies: 12:49 Bees; zb - Home Meds: 12:49 Xanax 1 mg Oral tab 1 tab nightly [Active]; furosemide 40 mg Oral tab 1 tab once daily zb [Active]; Carisoprodol Oral 1 tab every 6 hours [Active]; metoprolol succinate oral [Active]; - PMHx: 12:49 Atrial Fib; CHF; Chronic pain; COPD; Hypertension; Myocardial infarction; stent; right zb hand sx; - Immunization history:: Adult Immunizations up to date, Client reports receiving the 2nd dose of the Covid vaccine, Date received: January 18, 2021. - Social history:: Smoking status: Patient denies any tobacco usage or history of. - Family history:: not pertinent. ROS: 12:55 Constitutional: Negative for fever, chills, and weight loss, Eyes: Negative for injury, fredy pain, redness, and discharge, ENT: Negative for injury, pain, and discharge, Neck: Negative for injury, pain, and swelling, Cardiovascular: Negative for chest pain, palpitations, and edema, Respiratory: Negative for shortness of breath, cough, wheezing, and pleuritic chest pain, Abdomen/GI: Negative for abdominal pain, nausea, vomiting, diarrhea, and constipation, Back: Negative for injury and pain, : Negative for injury, bleeding, discharge, and swelling, MS/Extremity: Negative for injury and deformity, Skin: Negative for injury, rash, and discoloration, Psych: Negative for depression, anxiety, suicide ideation, homicidal ideation, and hallucinations, Allergy/Immunology: Negative for hives, rash, and allergies, Endocrine: Negative for neck swelling, polydipsia, polyuria, polyphagia, and marked weight changes, Hematologic/Lymphatic: Negative for swollen nodes, abnormal bleeding, and unusual bruising. 12:55 Neuro: Positive for altered mental status, weakness. Exam: 12:55 Constitutional: This is a well developed, well nourished patient who is awake, alert, fredy and in no acute distress. Head/Face: Normocephalic, atraumatic. Eyes: Pupils equal round and reactive to light, extra-ocular motions intact. Lids and lashes normal. Conjunctiva and sclera are non-icteric and not injected. Cornea within normal limits. Periorbital areas with no swelling, redness, or edema. ENT: Nares patent. No nasal discharge, no septal abnormalities noted. Tympanic membranes are normal and external auditory canals are clear. Oropharynx with no redness, swelling, or masses, exudates, or evidence of obstruction, uvula midline. Mucous membranes moist. Neck: Trachea midline, no thyromegaly or masses palpated, and no cervical lymphadenopathy. Supple, full range of motion without nuchal rigidity, or vertebral point tenderness. No Meningismus. Chest/axilla: Normal chest wall appearance and motion. Nontender with no deformity. No lesions are appreciated. Cardiovascular: Regular rate and rhythm with a normal S1 and S2. No gallops, murmurs, or rubs. Normal PMI, no JVD. No pulse deficits. Respiratory: Lungs have equal breath sounds bilaterally, clear to auscultation and percussion. No rales, rhonchi or wheezes noted. No increased work of breathing, no retractions or nasal flaring. Abdomen/GI: Soft, non-tender, with normal bowel sounds. No distension or tympany. No guarding or rebound. No evidence of tenderness throughout. Back: No spinal tenderness. No costovertebral tenderness. Full range of motion. Male : Normal genitalia with no discharge or lesions. Skin: Warm, dry with normal turgor. Normal color with no rashes, no lesions, and no evidence of cellulitis. MS/ Extremity: Pulses equal, no cyanosis. Neurovascular intact. Full, normal range of motion. Psych: Awake, alert, with orientation to person, place and time. Behavior, mood, and affect are within normal limits. 12:55 Neuro: Orientation: appropriate for stated age, no acute changes, per EMS, per family, to person, place \T\ time. Mentation: slow to respond, Memory: appropriate for stated age, no acute changes, Cranial nerves: grossly normal, is grossly normal based on the patient's age, no acute changes, visual pascal are intact. extraocular movements are intact, Cerebellar function: is grossly normal based on the patient's age, no acute changes, Motor: no acute changes, moves all fours, strength is normal, Sensation: no obvious gross deficits, appropriate no acute changes, Gait: not tested. Deep tendon reflexes are 2+ (normal) in the bilateral brachioradialis, bicep, tricep and patellar and Achilles tendons, Babinski testing is normal, seizure activity, is not displayed by the patient. 14:15 ECG was reviewed by the Attending Physician. fredy Vital Signs: 13:01 BP 131 / 81; Pulse 66; Resp 16; Temp 98.2; Pulse Ox 99% on R/A; Weight 103.87 kg; zb Height 5 ft. 8 in. (172.72 cm); Pain 0/10; 13:50 BP 129 / 79; Pulse 62; Resp 16; Pulse Ox 100% on R/A; zb 15:00 BP 120 / 68; Pulse 59; Resp 17; Pulse Ox 98% on R/A; zb 15:56 BP 134 / 69; Pulse 63; Resp 18; Pulse Ox 100% on R/A; zb 13:01 Body Mass Index 34.82 (103.87 kg, 172.72 cm) zb MDM: 12:45 Patient medically screened. fredy 12:57 Differential diagnosis: closed head injury, contusion, sprain, strain, electrolyte fredy abnormality, alcohol intoxication, hypoglycemia, intracranial bleed, UTI, volume depletion. Data reviewed: vital signs, nurses notes, lab test result(s), EKG, radiologic studies, CT scan, plain films. Data interpreted: teletypesetter monitor: rate is 65 beats/min, rhythm is regular, Pulse oximetry: on room air is 100 %. Data interpreted: Arterial blood gas:. Test interpretation: by ED physician or midlevel provider: ECG, plain radiologic studies. Counseling: I had a detailed discussion with the patient and/or guardian regarding: the historical points, exam findings, and any diagnostic results supporting the discharge/admit diagnosis, lab results, radiology results. 04/28 12:53 Order name: Basic Metabolic Panel [facility] 04/28 12:53 Order name: CBC with Diff [facility] 04/28 12:53 Order name: LFT's [facility] 04/28 12:53 Order name: Magnesium [facility] 04/28 12:53 Order name: NT PRO-BNP [facility] 04/28 12:53 Order name: PT-INR [facility] 04/28 12:53 Order name: Troponin (emerg Dept Use Only); Complete Time: 15:02 [facility] 04/28 12:53 Order name: Lipase; Complete Time: 15:02 [facility] 04/28 12:53 Order name: Acetaminophen; Complete Time: 15:02 [facility] 04/28 12:53 Order name: ETOH Level; Complete Time: 15:02 [facility] 04/28 12:53 Order name: Ptt, Activated; Complete Time: 14:35 [facility] 04/28 12:53 Order name: Salicylate [facility] 04/28 12:53 Order name: Urine Drug Screen [facility] 04/28 12:53 Order name: Basic Metabolic Panel; Complete Time: 15:02 [facility] 04/28 12:53 Order name: XRAY Chest (1 view); Complete Time: 14:35 [facility] 04/28 12:53 Order name: EKG; Complete Time: 12:54 [facility] 04/28 12:53 Order name: Cardiac monitoring; Complete Time: 13:56 [facility] 04/28 12:53 Order name: EKG - Nurse/Tech; Complete Time: 13:56 [facility] 04/28 12:53 Order name: IV Saline Lock; Complete Time: 14:02 [facility] 04/28 12:53 Order name: Labs collected and sent; Complete Time: 14:02 [facility] 04/28 12:53 Order name: O2 Per Protocol; Complete Time: 13:00 [facility] 04/28 12:53 Order name: O2 Sat Monitoring; Complete Time: 13:00 [facility] 04/28 12:53 Order name: CT Traumagram (Head C Spine CAP wo con); Complete Time: 13:57 [facility] 04/28 12:53 Order name: CBC with Automated Diff; Complete Time: 14:35 [facility] 04/28 12:53 Order name: Liver (Hepatic) Function; Complete Time: 15:02 [facility] 04/28 12:53 Order name: Magnesium; Complete Time: 15:02 [facility] 04/28 12:53 Order name: NT PRO-BNP; Complete Time: 15:02 [facility] 04/28 12:53 Order name: Protime (+INR); Complete Time: 14:35 [facility] 04/28 16:20 Order name: Urine Dipstick-Ancillary [facility] 04/28 12:53 Order name: Suicide Screening ([place]); Complete Time: 14:13 [facility] 04/28 12:53 Order name: Urine Dipstick-Ancillary (obtain specimen); Complete Time: 16:31 [facility] EC:15 Rate is 58 beats/min. Rhythm is regular. QRS [place] is Normal. MA interval is normal. QRS fredy interval is normal. QT interval is normal. No Q waves. T waves are Inverted in leads V1, V2, V3, V4. No ST changes noted. Clinical impression: NSR w/ Non-specific ST/T Changes. Interpreted by me. Reviewed by me. Administered Medications: 14:26 Drug: NS 0.9% 500 ml Route: IV; Rate: bolus; Site: right antecubital; zb 15:57 Follow up: Response: No adverse reaction; Marked relief of symptoms; IV Status: zb Completed infusion; IV Intake: 500ml Disposition Summary: 04/28/21 15:02 Discharge Ordered Location: Home fredy Problem: new fredy Symptoms: have improved fredy Condition: Fair fredy Diagnosis - Altered mental status, unspecified - xanax , soma usage fredy - Fall due to bumping against object fredy - Low back pain fredy - Other chronic pain fredy Followup: fredy - With: Private Physician - When: 2 - 3 days - Reason: Recheck today's complaints, Continuance of care, Re-evaluation by your physician Discharge Instructions: - Discharge Summary Sheet fredy - Acute Back Pain, Adult fredy - Confusion fredy - Musculoskeletal Pain fredy - Back Injury Prevention, [id number] fredy - Chronic Back Pain, [id number] fredy - Back Exercises, [id number] fredy Forms: - Medication Reconciliation Form fredy - Thank You Letter fredy - Antibiotic Education fredy - Prescription Opioid Use fredy Signatures: Dispatcher [employer] Parminder Avery MD MD cha Brown, Zipporah RN RN zb
[2021-04-28 16:20] LABS: Urine Blood Negative (Negative); Urine Glucose Negative (Negative); Urine Protein Negative (Negative); Urine Specific Gravity 1.025 (1.005-1.030); Urine pH 5.5 (5.0-7.0)
[2021-04-28 16:37] LABS: Barbiturates NEGATIVE (NEGATIVE); Benzodiazepines POSITIVE (NEGATIVE); Cocaine NEGATIVE (NEGATIVE); METHAMPHETAM POSITIVE (NEGATIVE); Methadone NEGATIVE (NEGATIVE); Opiates POSITIVE (NEGATIVE); Phencyclidine NEGATIVE (NEGATIVE); THC Cannibis NEGATIVE (NEGATIVE)
[2021-04-28 17:00] VITALS: TEMP 98.2
[2021-04-28 17:04] VITALS: BP 134/69; O2SAT 100
--- NOTE | 2021-04-29 10:30 | EKG ---
Test Date: 2021-04-28 Test Time: 13:56:23 [employer] Manager: SAV MEASUREMENT RESULTS: Intervals: Rate: 58 NE: 166 QRSD: 90 QT: 472 QTc: 463 [place]: P: 72 NE: 166 QRS: 67 T: 61 INTERPRETIVE STATEMENTS: Sinus bradycardia T wave abnormality, consider anterior ischemia Abnormal ECG Compared to ECG 12/07/2018 03:41:53 T-wave abnormality now present Possible ischemia now present Sinus rhythm no longer present Right-axis deviation no longer present Electronically Signed On 04-29-21 10:29:15 CDT by Devaughn Monsalve
== END 2021-04-28 16:31 | disposition home or self-care (01) ==
LOC: ER 12:39
DX: G89.29 Other chronic pain (principal); M54.5 Low back pain; W18.30XA Fall on same level, unspecified, initial encounter; Y93.01 Activity, walking, marching and hiking; I10 Essential (primary) hypertension; J44.9 Chronic obstructive pulmonary disease, unspecified; I48.91 Unspecified atrial fibrillation; Z91.030 Bee allergy status
CPT/HCPCS: 96361; 93005; 85025; 80048; 36415; 80320; 83735; 80329 ×2; 85610; 80076; 85730; 81003; 84484; 83690; 83880; 80307; 70450; 71250; 72125; 71045; 96360; 99285; J7040

== ENCOUNTER 2022-10-24 06:39 | Inpatient (IN) | payer OTHER ==
[2022-10-24 08:07] LABS: Absolute Lymphocytes (CBC) 0.9 K/uL (0.7-4.9); Hematocrit 36.3 % (39.6-49.0); MCV 78.6 fL (80-100); MPV 7.4 fL (7.6-11.3); RBC Red Blood Cell Count 4.61 M/uL (4.33-5.43)
[2022-10-24 08:12] LABS: Protime INR 1.19
[2022-10-24 08:23] LABS: Magnesium 1.9 mg/dL (1.6-2.4); Potassium 3.6 mmol/L (3.5-5.1); Troponin High Sensitivity 26.8 pg/mL (<58.9)
--- NOTE | 2022-10-24 08:57 | RAD REPORT ---
EXAM DESCRIPTION: RAD - Chest Single View - 10/24/2022 8:30 am CLINICAL HISTORY: DYSPNEA COMPARISON: Portable 04/28/2021 TECHNIQUE: AP portable chest image was obtained 10/24/2022 8:30 am . FINDINGS: No acute lung parenchymal process. Interstitial pattern is stable. Heart size is upper nor mal to slightly enlarged. This is a stable pattern. Mildly prominent vasculature stable as well. No m easurable pleural effusion and no pneumothorax. No acute bony abnormality seen. No acute aortic findi ngs suspected. IMPRESSION: No focal lung parenchymal process seen. Heart, vasculature and lung markings are all prominent but stable. No significant failure or volume o verload suspected.
--- NOTE | 2022-10-24 09:54 | EDPHYS ---
Physician Documentation [facility] Name: Chetan Case Age: 67 yrs Sex: Male : 1955 Arrival Date: 10/24/2022 Time: 06:42 Bed 4 Private MD: ED Physician Adrian Diallo HPI: 10/24 09:17 This 67 yrs old Male presents to ER via EMS with complaints of redness of legs, rn Breathing Difficulty. 09:17 The patient presents with cellulitis of the right leg and left leg. Description: rn erythematous, swollen. Onset: The symptoms/episode began/occurred 2 week(s) ago. Possible cause(s): unknown. Associated signs and symptoms: Pertinent positives: erythema, swelling, Pertinent negatives: fever. Modifying factors: the symptoms are alleviated by nothing, the symptoms are aggravated by nothing. Severity of symptoms: At their worst the symptoms were moderate, in the emergency department the symptoms are unchanged. The patient has not experienced similar symptoms in the past. The patient has been recently seen by a physician:. Pt reports increased swelling of legs and redness for 2 weeks, taking 2 abx without improvement. called 911 for legs as well as noticed difficulty breathing this AM. Pt states compliant with lasix.. Historical: - Allergies: 06:53 Bees; ha1 - PMHx: 06:53 Atrial Fib; CHF; Chronic pain; Hypertension; Myocardial infarction; stent; ha1 - Immunization history:: Adult Immunizations up to date. - Social history:: Smoking status: unknown. - Family history:: not pertinent. - Hospitalizations: : No recent hospitalization is reported. ROS: 09:17 Constitutional: Negative for fever, chills, and weight loss, Eyes: Negative for injury, rn pain, redness, and discharge, Neck: Negative for injury, pain, and swelling, Cardiovascular: Negative for chest pain, palpitations, and edema, Respiratory: Negative for wheezing, and pleuritic chest pain, Abdomen/GI: Negative for abdominal pain, nausea, vomiting, diarrhea, and constipation, Back: Negative for injury and pain, MS/Extremity: Negative for injury and deformity, Skin: + redness to legs Neuro: Negative for headache, numbness, tingling, and seizure. Exam: 09:17 Constitutional: This is a well developed, well nourished patient who is awake, alert, rn and in no acute distress. Head/Face: Normocephalic, atraumatic. Cardiovascular: Irregular rhythm, regular rate Respiratory: + mild tachypnea, diminished at bases, no retractions Abdomen/GI: Soft, non-tender Skin: + erythema and blanching to bilateral lower ext with warmth, no open wounds or fluctuance. MS/ Extremity: Pulses equal, no cyanosis. Neurovascular intact. Full, normal range of motion. Equal circumference. 1+ pitting edema bilateral lower ext. Neuro: Awake and alert, GCS 15 13:29 ECG was reviewed by the Attending Physician. rn Vital Signs: 06:48 BP 118 / 68; Pulse 82; Resp 15 S; Temp 97.8(O); Pulse Ox 100% on R/A; Weight 81.65 kg; ha1 Height 5 ft. 10 in. (177.80 cm); 07:23 BP 129 / 76; Pulse 77; Resp 16; Pulse Ox 98% on R/A; db 08:00 BP 130 / 81; Pulse 78; Resp 18; Pulse Ox 99% on R/A; db 09:00 BP 124 / 87; Pulse 79; Resp 18; Pulse Ox 99% on R/A; db 10:00 BP 131 / 90; Pulse 74; Resp 18; Pulse Ox 100% on R/A; db 11:00 BP 118 / 99; Pulse 79; Resp 18; Pulse Ox 100% on R/A; db 06:48 Body Mass Index 25.83 (81.65 kg, 177.80 cm) ha MDM: 07:03 Patient medically screened. rn 09:53 Differential diagnosis: cellulitis, CHF exacerbation. Data reviewed: vital signs, rn nurses notes, lab test result(s), radiologic studies, plain films, and as a result, I will admit patient. Counseling: I had a detailed discussion with the patient and/or guardian regarding: the historical points, exam findings, and any diagnostic results supporting the discharge/admit diagnosis, lab results, radiology results, the need for further work-up and treatment in the hospital. Admission orders: after a detailed discussion of the patient's condition and case, the admit orders are written by me. 10/24 07:21 Order name: BMP; Complete Time: 08:46 rn 10/24 07:21 Order name: Blood Culture Adult (2) rn 12/30 07:21 Order name: CBC with Diff; Complete Time: 08:46 rn 10/24 07:21 Order name: Magnesium; Complete Time: 08:46 rn 10/24 07:21 Order name: NT PRO-BNP; Complete Time: 08:46 rn 10/24 07:21 Order name: PT-INR; Complete Time: 08:46 rn 10/24 07:21 Order name: Ptt, Activated; Complete Time: 08:46 rn 10/24 07:21 Order name: Troponin HS; Complete Time: 08:46 rn 10/24 11:12 Order name: Liver (Hepatic) Function EDMS 10/24 11:12 Order name: T4 Free EDMS 10/24 11:12 Order name: Thyroid Stimulating Hormone EDMS 10/24 11:12 Order name: Urinalysis EDMS 10/24 11:12 Order name: Basic Metabolic Panel EDMS 10/24 11:12 Order name: Basic Metabolic Panel EDMS 10/24 11:12 Order name: Basic Metabolic Panel EDMS 10/24 11:12 Order name: Basic Metabolic Panel EDMS 10/24 11:12 Order name: CBC with Automated Diff EDMS 10/24 11:12 Order name: CBC with Automated Diff EDMS 10/24 11:12 Order name: CBC with Automated Diff EDMS 10/24 11:12 Order name: CBC with Automated Diff EDMS 10/24 11:12 Order name: Lipid Profile EDMS 10/24 11:12 Order name: Lipid Profile EDMS 10/24 11:12 Order name: Magnesium EDMS 10/24 11:12 Order name: Magnesium EDMS 10/24 11:12 Order name: Phosphorus EDMS 10/24 11:12 Order name: Phosphorus EDMS 10/24 11:12 Order name: Vancomycin Level Trough EDMS 10/24 11:15 Order name: ABG Arterial Blood Gas EDMS 10/24 11:31 Order name: SARS RAPID eb 10/24 12:57 Order name: SARS-COV-2 Antigen Rapid EDMS 10/24 07:21 Order name: XRAY CXR (1 view); Complete Time: 09:00 rn 10/24 07:21 Order name: EKG; Complete Time: 07:21 rn 10/24 07:21 Order name: Cardiac monitoring; Complete Time: 07:58 rn 10/24 07:21 Order name: EKG - Nurse/Tech; Complete Time: 07:52 rn 10/24 07:21 Order name: IV Saline Lock; Complete Time: 07:58 rn 10/24 07:21 Order name: Labs collected and sent; Complete Time: 07:58 rn 10/24 07:21 Order name: O2 Per Protocol; Complete Time: 07:58 rn 10/24 07:21 Order name: O2 Sat Monitoring; Complete Time: 07:58 rn 10/24 11:12 Order name: Heart Healthy EDWA 10/24 11:12 Order name: Echo without Doppler (2D) EDMS 10/24 12:49 Order name: CT EDWA 10/24 12:54 Order name: Labs - recollect needed: recollect chemistries and trop hemolyzed; Complete eb Time: 15:31 10/24 13:52 Order name: US EDWA 10/24 14:42 Order name: Troponin High Sensitivity EDWA EC:29 Rate is 80 beats/min. Rhythm is regular. QRS [place] is Normal. VT interval is normal. QRS rn interval is normal. QT interval is normal. No Q waves. T waves are Inverted in leads V1, V2, V3. No ST changes noted. Clinical impression: NSR w/ Non-specific ST/T Changes. Interpreted by me. Reviewed by me. Administered Medications: No medications were administered Disposition Summary: 10/24/22 09:54 Hospitalization Ordered Hospitalization Status: Inpatient Admission rn Location: Telemetry/[facility] (Inpatient) rn Condition: Stable rn Problem: new rn Symptoms: are unchanged rn Bed/Room Type: Standard rn Provider: Zane Mortensen(10/24/22 11:53) rn Room Assignment: [facility] [place](10/24/22 15:25) Diagnosis - Cellulitis of right lower limb rn - Cellulitis of left lower limb rn - Failure of outpatient treatment rn - Unspecified combined systolic (congestive) and diastolic (congestive) heart failure rn Forms: - Medication Reconciliation Form rn - SBAR form rn Signatures: Dispatcher [employer] [facility] Reena Saha RN RN Adrian Melendez MD MD rn Botello, Elizabeth eb Ayala, Heidy, RN RN ha1 Corrections: (The following items were deleted from the chart) 11:53 09:54 Keri Mathur rn rn 15:25 09:54 rn dw
--- NOTE | 2022-10-24 09:54 | ER ---
Nurse's Notes [facility] Name: Chetan Case Age: 67 yrs Sex: Male : 1955 Arrival Date: 10/24/2022 Time: 06:42 Bed 4 Private MD: Diagnosis: Cellulitis of right lower limb;Cellulitis of left lower limb;Failure of outpatient treatment;Unspecified combined systolic (congestive) and diastolic (congestive) heart failure Presentation: 10/24 06:48 Chief complaint: EMS states: pt. called because of difficulty breathing. when we ha1 arrived he was 100% in room air. During our assessment we noticed cellulitis bilateral legs. Coronavirus screen: Vaccine status: Patient reports being unvaccinated. Ebola Screen: No symptoms or risks identified at this time. Initial Sepsis Screen: Does the patient meet any 2 criteria? No. Patient's initial sepsis screen is negative. Does the patient have a suspected source of infection? No. Patient's initial sepsis screen is negative. Initial Sepsis Screen: Does the patient have a suspected source of infection? Yes: Skin breakdown/wound. Risk Assessment: Do you want to hurt yourself or someone else? Patient reports no desire to harm self or others. Onset of symptoms was October 24, 2022. 06:48 Method Of Arrival: EMS: [facility] ha1 06:48 Acuity: OCHOA 3 ha1 Triage Assessment: 06:53 General: Appears comfortable, Behavior is calm, cooperative. Pain: Complains of pain in ha1 right and left leg Pain does not radiate. Pain currently is 5 out of 10 on a pain scale. Quality of pain is described as burning, Alleviated by medications. EENT: No signs and/or symptoms were reported regarding the EENT system. Neuro: Level of Consciousness is awake, alert, obeys commands, Oriented to person, place, time, situation. Cardiovascular: Capillary refill < 3 seconds Patient's skin is warm and dry. Respiratory: Reports shortness of breath at rest Airway is patent Trachea midline Respiratory effort is even, unlabored, Respiratory pattern is regular, symmetrical, Onset: The symptoms/episode began/occurred suddenly, the patient has mild shortness of breath. GI: No signs and/or symptoms were reported involving the gastrointestinal system. Abdomen is non-distended, obese, Bowel sounds present X 4 quads. : No signs and/or symptoms were reported regarding the genitourinary system. Derm: redness of the right and left leg. Musculoskeletal: Circulation, motion, and sensation intact. Historical: - Allergies: 06:53 Bees; ha1 - PMHx: 06:53 Atrial Fib; CHF; Chronic pain; Hypertension; Myocardial infarction; stent; ha1 - Immunization history:: Adult Immunizations up to date. - Social history:: Smoking status: unknown. - Family history:: not pertinent. - Hospitalizations: : No recent hospitalization is reported. Screenin:59 Abuse screen: Denies threats or abuse. Denies injuries from another. Nutritional ha1 screening: No deficits noted. Tuberculosis screening: No symptoms or risk factors identified. 15:32 [facility] ED Fall Risk Assessment (Adult) History of falling in the last 3 months, db including since admission No falls in past 3 months (0 pts) Confusion or Disorientation No (0 pts) Intoxicated or Sedated No (0 pts) Impaired Gait No (0 pts) Mobility Assist Device Used No (0 pt) Altered Elimination No (0 pt) Score/Fall Risk Level 0 - 2 = Low Risk Oriented to surroundings, Maintained a safe environment. Assessment: 07:15 Reassessment: Patient appears in no apparent distress at this time. Patient and/or db family updated on plan of care and expected duration. Pain level reassessed. Patient is alert, oriented x 3, equal unlabored respirations, skin warm/dry/pink. patient has bilateral redness and cellulitis. and right arm cellulitis. states is taking antibiotic that is not helping. and has SOB. General: Appears in no apparent distress. comfortable, Behavior is calm, cooperative, appropriate for age, quiet. Pain: Complains of pain in right arm, right leg and left leg Pain began 2-3 days ago. Neuro: No deficits noted. Level of Consciousness is awake, alert, obeys commands, Oriented to person, place, time, situation, Appropriate for age. Cardiovascular: Rhythm is regular. Respiratory: No deficits noted. Airway is patent Respiratory effort is even, unlabored, Respiratory pattern is regular, agonal Breath sounds are clear bilaterally. GI: Abdomen is flat, Abd is soft and non tender. : No deficits noted. No signs and/or symptoms were reported regarding the genitourinary system. EENT: No deficits noted. No signs and/or symptoms were reported regarding the EENT system. 07:31 Reassessment: Patient appears in no apparent distress at this time. CALLED PATIENT'S db FOR PATIENT NICHOLAS [phone]. Vital Signs: 06:48 BP 118 / 68; Pulse 82; Resp 15 S; Temp 97.8(O); Pulse Ox 100% on R/A; Weight 81.65 kg; ha1 Height 5 ft. 10 in. (177.80 cm); 07:23 BP 129 / 76; Pulse 77; Resp 16; Pulse Ox 98% on R/A; db 08:00 BP 130 / 81; Pulse 78; Resp 18; Pulse Ox 99% on R/A; db 09:00 BP 124 / 87; Pulse 79; Resp 18; Pulse Ox 99% on R/A; db 10:00 BP 131 / 90; Pulse 74; Resp 18; Pulse Ox 100% on R/A; db 11:00 BP 118 / 99; Pulse 79; Resp 18; Pulse Ox 100% on R/A; db 06:48 Body Mass Index 25.83 (81.65 kg, 177.80 cm) ha1 ED Course: 06:42 Patient arrived in ED. wm 06:48 Tess Baum, OJ is Primary Nurse. ha1 06:53 Triage completed. ha1 06:53 Arm band placed on right wrist. ha1 06:59 Allergy band placed. Bed in low position. Call light in reach. Side rails up X 1. ha1 07:03 Adrian Diallo MD is Attending Physician. rn 07:45 First set of blood cultures drawn. db 07:50 Inserted saline lock: 20 gauge in left antecubital area, using aseptic technique. Blood db collected. 07:52 EKG done, by ED staff. bc6 07:55 Second set of blood cultures drawn by me. db 08:32 XRAY CXR (1 view) In Process Unspecified. EDMS 09:53 Keri Mathur MD is Hospitalizing Provider. rn 11:53 Zane Mortensen is Hospitalizing Provider. rn 12:34 SARS RAPID Sent. bc6 12:34 Vancomycin Level Trough Sent. bc6 12:34 Liver (Hepatic) Function Sent. bc6 12:34 T4 Free Sent. bc6 12:34 Thyroid Stimulating Hormone Sent. bc6 12:34 Initial lab(s) drawn, by me, sent to lab. COVID swab sent to lab. bc6 15:31 Inserted saline lock: 20 gauge in left upper arm, using aseptic technique. db 15:31 No provider procedures requiring assistance completed. Patient admitted, IV remains in db place. 15:55 Report given to OJ Garrido. db Administered Medications: No medications were administered Medication: 11:22 VIS not applicable for this client. db Outcome: 09:54 Decision to Hospitalize by Provider. rn 15:31 Admitted to Tele db 15:31 Condition: stable 15:31 Instructed on the need for admit. 16:18 Patient left the ED. db Signatures: Dispatcher [employer] EDMS Adrian Diallo MD MD rn Marsh, Wendy wm Ayala, Heidy, RN RN [facility] Jennifer Hannah RN RN db Payal Kuhn 6
[2022-10-24] MEDS ORDERED: ACETAMINOPHEN 500 MG TAB PO PRN (10:59)
[2022-10-24] MEDS ORDERED: ONDANSETRON 4 MG/2 ML VIAL IV PRN (10:59)
[2022-10-24] MEDS ORDERED: ALBUTEROL 2.5 MG/3 ML NEB SOL NEB PRN (10:59)
--- NOTE | 2022-10-24 11:27 | P.HP ---
Certification for Inpatient With expected LOS: >2 Midnights Patient will require the following post-hospital care: None Practitioner: I am a practitioner with admitting privileges, knowledge of patient current condition, hospital course, and medical plan of care. Services: Services provided to patient in accordance with Admission requirements found in Title 42 Section 412.3 of the Code of Federal Regulations Patient History Date of Service: 10/24/22 Primary Care Provider: Jose Ramon Reason for admission: BLE cellulitis, CHF exacerbation History of Present Illness: Patient is a 67-year-old male with PMH of CHF, atrial fibrillation, SC with stents, hypertension, nephrotic syndrome, hep C, who came into the hospital with shortness of breath and redness to bilateral lower extremities. Patient was examined with at the bedside. Patient was alert and oriented x 3 but lethargic and unable to speak in complete sentence. History was mostly obtained from . Per , patient noticed swelling in BLE 2 weeks ago. He also had shortness of breath with no other symptoms except for intermittent non- productive coughing. She reported that 2-3 days ago, his shortness of breath worsened with associated symptoms of weakness, fatigue and cough. Patient states that his shortness of breath results from doing anything and the symptoms are alleviated by nothing. Patient states that he was started on antibiotics (Bactrim and Levaquin) for his cellulitis and spider bite to his right elbow. BLE presented with erythema and warmth, no wounds noted. Patient's BNP was also elevated at 3,231. He will be admitted to the hospital for further management under Dr. Mortensen. An ECHO was ordered and cardiology will be consulted for his heart failure and further recommendations. Allergies No Known Drug Allergies Allergy (Verified 08/07/18 00:32) Unknown Bees Allergy (Uncoded 10/06/17 04:46) Unknown No Known Allergies Allergy (Uncoded 03/01/16 14:05) Unknown Home medications list reviewed: Yes Home Medications: Hydrocodone/Acetaminophen [Hydrocodone-Acetamin 10-325 mg] 1 tab PO Q6HP PRN 03/01/16 Pantoprazole Sodium [Protonix] 40 mg PO DAILY 03/01/16 ALPRAZolam [Alprazolam] 1 mg PO BEDTIME 08/07/18 Albuterol Sulfate [Proair Hfa] 1 puff IH Q6HP PRN 08/07/18 Furosemide [Lasix] 40 mg PO DAILY PRN #15 tab 08/07/18 carisoprodoL [Carisoprodol] 1 tab PO Q6HP PRN 08/07/18 - Past Medical/Surgical History Diabetic: No -: nephrotic syndrome -: hep c -: afib -: anxiety -: chronic pain -: headaches -: degenerative disc disease -: right broken wrist sx -: right tendon surgery -: left Hand surgery -: vasectomy -: ablation - Family History Mother -: Stroke Father -: Heart disease - Social History Smoking Status: Never smoker Alcohol use: Yes CD- Drugs: No Caffeine use: Yes Review of Systems 10-point ROS is otherwise unremarkable General: Weakness Respiratory: Cough, Shortness of Breath, SOB with Excertion Cardiovascular: Orthopnea Genitourinary: Frequency, Urgency Musculoskeletal: Pedal edema Integumentary: Other (Redness) Neurological: Weakness, Change in Speech Physical Examination - Vital Signs Temperature: 97.8 F Blood Pressure: 129/76 Pulse: 77 Respirations: 16 Pulse Ox (%): 98 - Physical Exam General: Alert, Oriented x3 (Lethargic) HEENT: Atraumatic, Normocephalic, PERRLA Neck: JVD not distended Respiratory: Clear to auscultation bilaterally Cardiovascular: Edema Capillary refill: <2 Seconds Gastrointestinal: Normal bowel sounds Musculoskeletal: Swelling, Erythema, Warmth Integumentary: Tenderness/swelling, Erythema, Warmth Neurological: Sensation intact (Lethargic) Lymphatics: No axilla or inguinal lymphadenopathy - Studies Laboratory Data (last 24 hrs) 10/24/22 07:50: PT 13.1 H, INR 1.19, APTT 31.9 10/24/22 07:50: WBC 7.80, Hgb 11.9 L, Hct 36.3 L, Plt Count 233 10/24/22 07:50: Sodium 139, Potassium 3.6, BUN 26 H, Creatinine 1.06, Glucose 106, Magnesium 1.9 Assessment and Plan - Plan Assessment Bilateral lower extremity cellulitis/edema Acute on chronic diastolic CHF exacerbation H/O atrial fibrillation without current medication Dyspnea Hypertension Plan Bilateral lower extremity cellulitis/edema -Continue Cefepime and Vanc -Continue Lasix -BLE Doppler ordered Acute on chronic diastolic CHF exacerbation ECHO (03/03/16) NORMAL LEFT VENTRICULAR EJECTION FRACTION (52%), DILATED LEFT ATRIUM AND RIGHT ATRIUM, ATRIAL FIBRILLATION HEART RATE 75 BEATS EPR MINUTE, MILD MITRAL REGURGITATION -CXR- No focal lung parenchymal process seen. Heart, vasculature and lung markings are all prominent but stable. No significant failure or volume overload suspected -Continue Lasix -Strict I/O, daily weights -ECHO ordered -Cardiology consulted, recommendation appreciated Hx of atrial fibrillation without current medication -Cardiology consulted Dyspnea -ECHO ordered -CT angio ordered -Serial troponin -Cardiology consulted -PRN nebulizer treatment, oxygen therapy as needed Hypertension -Resume home medications when appropriate PPX- SCDs/PPI Code status- Full code Discharge Plan: Home Plan to discharge in: 48 Hours - Advance Directives Does patient have a Living Will: No Does patient have a Durable POA for Healthcare: Yes - Code Status/Comfort Care Code Status Assessed: Yes (Full code) Critical Care: No Time Spent Managing Pts Care (In Minutes): 60
[2022-10-24] MEDS: ENOXAPARIN 40 MG/0.4 ML SQ SCH (12:00)
[2022-10-24 12:04] LABS: Arterial Blood Carboxyhemoglob 1.7 % (0-1.5); Blood Gas Oxyhemoglobin 93.8 % (94-97); Blood O2 Saturation 96.4 % (92-98.5)
--- NOTE | 2022-10-24 12:48 | RAD REPORT ---
EXAM DESCRIPTION: CT - Chest Angio - 10/24/2022 12:37 pm CLINICAL HISTORY: Dyspnea rule out PE, chest pain COMPARISON: CTANGIO CHEST FOR PE dated 03/14/2015; Chest Single View dated 10/24/2022 TECHNIQUE: Dynamically enhanced 3 mm thick images of the chest were obtained during administration o f approximately 150mL Isovue 370 IV contrast. Coronal and oblique MIP reconstruction images were gene rated and reviewed. Exam utilizes a protocol to evaluate the pulmonary arterial tree. All CT scans are performed using dose optimization technique as appropriate and may include automated exposure control or mA/KV adjustment according to patient size. FINDINGS: No pulmonary emboli are identified. The aorta as imaged shows no acute or suspicious finding. Heart size is prominent. No pericardial thi ckening or effusion. Coronary artery calcifications are present. No focal mass or infiltrate of the lung parenchyma. Interstitial markings are prominent but not signi ficantly different from the prior examination. Central vasculature is also prominent and unchanged. N o pleural effusion or pleural thickening. No mediastinal or hilar suspicious masses. No chest wall masses or abnormal axillary lymphadenopathy. IMPRESSION: No pulmonary emboli identified. No new or suspicious finding from prior CT study.
[2022-10-24 12:57] LABS: SARS-CoV-2 Antigen Rapid Res Negative (Negative)
[2022-10-24] MEDS ORDERED: ENOXAPARIN 40 MG/0.4 ML SQ ONE (13:06)
[2022-10-24] MEDS ORDERED: CEFEPIME 1 GM/VIAL ONE (13:06)
[2022-10-24] MEDS ORDERED: NA CHLORIDE 0.9% 100 ML IV ONE (13:06)
[2022-10-24] MEDS: CEFEPIME 1 GM in NA CHLORIDE 0.9% 100 ML IV SCH ×2 (13:18→21:16)
--- NOTE | 2022-10-24 13:52 | RAD REPORT ---
EXAM DESCRIPTION: US - Extrem Venous W Compress Dhiraj - 10/24/2022 12:57 pm CLINICAL HISTORY: BLE edema, dyspnea COMPARISON: DVT study 08/06/2018 TECHNIQUE: Real-time sonographic evaluation of the bilateral lower extremity common femoral, superfi cial femoral, popliteal and posterior tibial veins was performed. FINDINGS: Normal compressibility, flow augmentation, phasic flow and spontaneous flow are identified in the left and right lower extremity common femoral, superficial femoral, popliteal and posterior t ibial veins. No intraluminal filling defects seen. IMPRESSION: No DVT in either lower extremity.
[2022-10-24] MEDS: VANCOMYCIN 1.5 GM in NA CHLORIDE 0.9% 500 ML IVPB SCH (14:18)
--- NOTE | 2022-10-24 15:45 | CON ---
Date of Consultation: 10/24/2022 Reason For Consultation: Lower extremity edema and shortness of breath. History Of Present Illness: A 67-year-old male, history of congestive heart failure, chronic AFib, c oronary artery disease, status post stents placement, hypertension tenderness. Denies hav ing any chest pain. No nausea, vomiting, or diarrhea. No other complaints. Past Medical History: As outlined above in the HPI. Medications: Refer reconciliation sheet for detailed list. Allergies: NO KNOWN DRUG ALLERGIES. Family History: No premature coronary artery disease or cancer. Social History: Does not smoke or drink. Does not use any drugs. Review of Systems: All systems reviewed and they were negative except as mentioned in the HPI. Physical Examination: Vital Signs: Reviewed. Head and Neck: Pupils are equal, reactive to light. Intact eye movements. No JVD. No cervical lym phadenopathy. Neck is supple. Thyroid is not enlarged. Lungs: Clear to auscultation. No rhonchi, wheezing, or crackles. No accessory muscle use. Heart: Irregular with S3. Abdomen: Soft, nontender. Bowel sounds positive. No organomegaly. No masses or hernia. No rigidi ty or rebound. Extremities: 3+ edema bilaterally. No clubbing or cyanosis, but there is erythema as well involving both legs. Neurologic: Alert, awake, oriented x3. No acute focal deficits appreciated. Lymph Nodes: No cervical or axillary lymphadenopathy. Investigations: BUN 26, creatinine 1.06, and hemoglobin 11.9. CTA of the chest was done and results showed no pulmonary emboli. Assessment And Recommendations: 1.Acute on chronic diastolic heart failure exacerbation. I agree with diuresis, Lasix 40 mg q.12 ho urs. Monitor BUN, creatinine, electrolytes, and recommend strict low-salt diet. Trend troponin for 2 more sets to rule out myocardial injury, then obtain an echo. 2.Cellulitis of lower extremity, on antibiotics. Continue current management. 3.Coronary artery disease. There is no chest pain. Cardiac enzymes are negative. Continue to fela rendon. SR/MODL Voice ID: [id number] Report ID: [id number]
[2022-10-24] MEDS: FUROSEMIDE 40 MG/4 ML VIAL IV SCH (17:38)
[2022-10-24] MEDS ORDERED: carisoprodoL 350 MG TAB PO PRN (17:54)
[2022-10-24 19:55] LABS: Specific Gravity 1.006 (1.005-1.030); Urine Bilirubin NEGATIVE (Negative); Urine Blood Negative (Negative); Urine Clarity Clear (Clear); Urine Color Colorless (Yellow); Urine Glucose NEGATIVE (Negative); Urine Protein NEGATIVE (Negative); Urine Urobilinogen Normal (Normal); Urine pH 6.5 (5.0-7.0)
[2022-10-24] MEDS: ALPRAZOLAM 1 MG TABLET PO SCH (21:16)
[2022-10-24] MEDS: GABAPENTIN 300 MG CAP PO SCH (21:17)
[2022-10-25 00:41] LABS: Bilirubin Direct 0.3 mg/dL (0-0.2); Bilirubin Total 0.6 mg/dL (0.2-1.0); Thyroid Stimulating Hormone 1.83 uIU/mL (0.358-3.740)
[2022-10-25 05:15] LABS: Absolute Lymphocytes (CBC) 1.1 K/uL (0.7-4.9); Lymphocytes % 19.3 % (15.3-44.8); MCV 77.6 fL (80-100); MPV 7.5 fL (7.6-11.3); RBC Red Blood Cell Count 4.77 M/uL (4.33-5.43)
[2022-10-25] MEDS: VANCOMYCIN 1.5 GM in NA CHLORIDE 0.9% 500 ML IVPB SCH (05:22)
[2022-10-25 05:38] LABS: Magnesium 1.9 mg/dL (1.6-2.4); Phosphorus 3.9 mg/dL (2.5-4.9); Potassium 3.9 mmol/L (3.5-5.1)
[2022-10-25] MEDS: PANTOPRAZOLE 40MG TABLET PO SCH ×2 (07:30→08:36)
[2022-10-25] MEDS ORDERED: NA CHLORIDE 0.9% 100 ML ONE (07:48)
[2022-10-25] MEDS: ENOXAPARIN 40 MG/0.4 ML SQ SCH (08:35)
[2022-10-25] MEDS: CEFEPIME 1 GM in NA CHLORIDE 0.9% 100 ML IV SCH ×2 (08:36→22:04)
[2022-10-25] MEDS: ASPIRIN EC 81 MG TAB PO SCH (08:36)
[2022-10-25] MEDS: FUROSEMIDE 40 MG/4 ML VIAL IV SCH ×2 (08:37→16:11)
[2022-10-25] MEDS ORDERED: POTASSIUM CL SA 10 MEQ TAB PO ONE (09:00)
[2022-10-25 12:51] VITALS: BMI 26.5
--- NOTE | 2022-10-25 16:12 | P.PN ---
Subjective Date of Service: 10/25/22 Primary Care Provider: Jose Ramon Chief Complaint: BLE cellulitis, CHF exacerbation Patient denies any complaint today. He noted his lower extremity swelling and redness have improved. He has been stable on room air. No recorded fever. Physical Examination - Vital Signs Temperature: 98.5 F Blood Pressure: 108/68 Pulse: 97 Respirations: 16 Pulse Ox (%): 100 - Physical Exam General: Alert, In no apparent distress, Oriented x3 HEENT: Mucous membr. moist/pink Neck: JVD not distended Respiratory: Clear to auscultation bilaterally, Normal air movement Cardiovascular: Regular rate/rhythm, Normal S1 S2, Edema (Bilateral lower extremities) Gastrointestinal: Soft and benign, Non-distended, No tenderness Musculoskeletal: No swelling Integumentary: Erythema (Bilateral legs) Neurological: Normal strength at 5/5 x4 extr, Cranial nerves 3-12 intact Assessment And Plan - Plan Bilateral lower extremity cellulitis/edema Acute on chronic diastolic CHF exacerbation H/O atrial fibrillation. Dyspnea Hypertension Plan Bilateral lower extremity cellulitis/edema -Continue Cefepime and Vanc -Continue Lasix -Venous Doppler lower extremities: No DVT. Acute on chronic diastolic CHF exacerbation Most recent echo ECHO (03/03/16) shows normal EF. -Continue Lasix -Strict I/O, daily weights -ECHO ordered -Cardiology input appreciated. Hx of atrial fibrillation. -Stable -Echocardiogram. Right elbow nodule -Patient attributes the fluctuant nodule on his right elbow to a spider bite. -The nodule size is decreasing. Hypertension -Resume home medications when appropriate Code status- Full code Discharge Plan: Home
--- NOTE | 2022-10-25 20:21 | PN ---
Date of Progress Note: 10/25/2022 Subjective: Seen at bedside. Edema is significantly better. No significant shortness of breath. Review of Systems: No chest pain, shortness of breath, orthopnea, cough. No nausea, vomiting, diarrhea. No abdominal p ain. No dysuria, polyuria, or urinary urgency. All other systems reviewed are negative. Physical Examination: Vital Signs: Reviewed. Head and Neck: Pupils are equal, reactive to light. Intact eye movements. No JVD. No cervical lym phadenopathy. Neck: Supple. Thyroid is not enlarged. Lungs: Clear to auscultation bilaterally. No rhonchi, wheezing, or crackles. No accessory muscle u se. Heart: Regular rate and rhythm. No extra sounds. Abdomen: Soft, nontender. Bowel sounds positive. No organomegaly. No masses or hernia. No rigidi ty or rebound. Extremities: 1+ edema bilaterally with improvement. Neurologic: Alert, awake, oriented x3. No acute focal deficits appreciated. Investigations: BUN 25, creatinine 1.07. Cardiac enzymes are negative and hemoglobin is 12.2. Assessment/recommendations: 1.Acute on chronic congestive heart failure exacerbation, improving very well. Patient can be switc hed to oral Lasix and low-salt diet and daily body weight is recommended. 2.Cellulitis, lower extremity with improvement. Continue antibiotics. SR/MODL Voice ID: [id number] Report ID: [id number]
[2022-10-25] MEDS: GABAPENTIN 300 MG CAP PO SCH (22:04)
[2022-10-25] MEDS: ALPRAZOLAM 1 MG TABLET PO SCH (22:04)
[2022-10-26] MEDS: VANCOMYCIN 1.5 GM in NA CHLORIDE 0.9% 500 ML IVPB SCH ×2
[2022-10-26 01:45] VITALS: O2SAT 98
[2022-10-26 06:02] LABS: Absolute Lymphocytes (CBC) 1.1 K/uL (0.7-4.9); Hematocrit 34.2 % (39.6-49.0); Lymphocytes % 22.7 % (15.3-44.8); MPV 7.3 fL (7.6-11.3); RBC Red Blood Cell Count 4.38 M/uL (4.33-5.43)
[2022-10-26 06:16] LABS: Potassium 3.5 mmol/L (3.5-5.1)
[2022-10-26] MEDS: PANTOPRAZOLE 40MG TABLET PO SCH ×2 (07:30→08:33)
[2022-10-26 08:15] VITALS: BP 134/85; TEMP 97.6
[2022-10-26] MEDS: ENOXAPARIN 40 MG/0.4 ML SQ SCH ×2 (08:33→08:42)
[2022-10-26] MEDS: FUROSEMIDE 40 MG/4 ML VIAL IV SCH (08:33)
[2022-10-26] MEDS: CEFEPIME 1 GM in NA CHLORIDE 0.9% 100 ML IV SCH (08:34)
[2022-10-26] MEDS: ASPIRIN EC 81 MG TAB PO SCH (08:34)
[2022-10-26] MEDS ORDERED: POTASSIUM 25 MEQ EFFERV TAB PO ONE (09:00)
--- NOTE | 2022-10-26 12:00 | P.DS ---
Admission Date: 10/24/22 Discharge Date: 10/26/22 Primary Care Provider: Jose Ramon Disposition: ROUTINE DISCHARGE Discharge Condition: FAIR Reason for Admission: BLE cellulitis, CHF exacerbation Brief History of Present Illness: Patient is a 67-year-old male with PMH of CHF, atrial fibrillation, GA with stents, hypertension, nephrotic syndrome, hep C, who came into the hospital with shortness of breath and redness to bilateral lower extremities. Patient was alert and oriented x 3 but quite short of breath and unable to speak in complete sentence. History was mostly obtained from . Per , patient noticed swelling in BLE 2 weeks ago. He also had shortness of breath with no other symptoms except for intermittent non-productive coughing. She reported his shortness of breath worsened with associated symptoms of weakness, fatigue and cough. Patient stated that he was started on antibiotics (Bactrim and Levaquin) for his cellulitis and possible spider bite to his right elbow. Patient's BNP was also elevated at 3,231. Chest x-ray showed no acute disease. Patient was admitted for further management. Hospital Course: Diagnosis Bilateral lower extremity cellulitis/edema Acute on chronic diastolic CHF exacerbation H/O atrial fibrillation. Dyspnea Hypertension The following medical problems were addressed during the hospital stay: Bilateral lower extremity cellulitis/edema -Treated with cefepime and Vanc -Also treated with IV Lasix -Venous Doppler lower extremities: No DVT. -Lower extremities redness and edema has significantly improved and almost resolved. -He is discharged with oral Augmentin to continue treatment for lower extremity cellulitis. -He is also prescribed Lasix for lower extremity edema and CHF. Acute on chronic diastolic CHF exacerbation Most recent echo ECHO (03/03/16) showed normal EF. -Treated with Lasix -Patient seen by cardiology who recommended to continue medical management. -Echocardiogram as outpatient. Hx of atrial fibrillation. -Stable Right elbow nodule -Patient attributes the fluctuant nodule on his right elbow to a spider bite. -The nodule size noted to be decreasing -Patient treated with broad-spectrum antibiotics. -Augmentin on discharge. Patient is currently without symptoms, vitals are stable and he is deemed stable for discharge. Dr. Valencia is okay with discharge and will follow with the patient in the office for an outpatient echocardiogram. Vital Signs/Physical Exam: Temp Pulse Resp BP Pulse Ox 97.6 F 76 18 134/85 99 10/26/22 08:00 10/26/22 08:33 10/26/22 08:00 10/26/22 08:33 10/26/22 08:00 General: Alert, In no apparent distress, Oriented x3 HEENT: Mucous membr. moist/pink Neck: Supple, JVD not distended Respiratory: Clear to auscultation bilaterally, Normal air movement Cardiovascular: Regular rate/rhythm, Normal S1 S2 Gastrointestinal: Normal bowel sounds, Soft and benign, Non-distended, No tenderness Musculoskeletal: Erythema (Bilateral lower extremity erythema resolved) Integumentary: No cyanosis Neurological: Normal strength at 5/5 x4 extr Laboratory Data at Discharge: WBC 5.00 K/uL (4.3-10.9) 10/26/22 05:41 Hgb 11.3 g/dL (13.6-17.9) L 10/26/22 05:41 Hct 34.2 % (39.6-49.0) L 10/26/22 05:41 Plt Count 230 K/uL (152-406) 10/26/22 05:41 PT 13.1 SECONDS (9.5-12.5) H 10/24/22 07:50 INR 1.19 10/24/22 07:50 APTT 31.9 SECONDS (24.3-36.9) 10/24/22 07:50 Sodium 137 mmol/L (136-145) 10/26/22 05:41 Potassium 3.5 mmol/L (3.5-5.1) 10/26/22 05:41 BUN 23 mg/dL (7-18) H 10/26/22 05:41 Creatinine 0.99 mg/dL (0.70-1.30) 10/26/22 05:41 Glucose 105 mg/dL (74-106) 10/26/22 05:41 Phosphorus 3.9 mg/dL (2.5-4.9) 10/25/22 05:01 Magnesium 1.9 mg/dL (1.6-2.4) 10/25/22 05:01 Total Bilirubin 0.6 mg/dL (0.2-1.0) 10/24/22 23:51 AST 13 U/L (15-37) L 10/24/22 23:51 ALT 16 U/L (16-61) 10/24/22 23:51 Alkaline Phosphatase 79 U/L (45-117) 10/24/22 23:51 Triglycerides 74 mg/dL (<150) 10/25/22 05:01 Cholesterol 139 mg/dL (<200) 10/25/22 05:01 HDL Cholesterol 58 mg/dL (40-60) 10/25/22 05:01 Cholesterol/HDL Ratio 2.40 10/25/22 05:01 Home Medications: Hydrocodone/Acetaminophen [Hydrocodone-Acetamin 10-325 mg] 1 tab PO Q6HP PRN 03/01/16 Pantoprazole Sodium [Protonix] 40 mg PO DAILY 03/01/16 ALPRAZolam [Alprazolam] 1 mg PO BEDTIME 08/07/18 Albuterol Sulfate [Proair Hfa] 1 puff IH Q6HP PRN 08/07/18 carisoprodoL [Carisoprodol] 1 tab PO Q6HP PRN 08/07/18 Gabapentin 1 tab PO BEDTIME 10/24/22 Amox/Clavulanate [Augmentin 875-125 Tab] 1 each PO BID #14 tab 10/26/22 Aspirin [Aspirin EC 81 MG] 81 mg PO DAILY #30 tab 10/26/22 Furosemide [Lasix*] 40 mg PO BIDL #35 tab 10/26/22 New Medications: Aspirin [Aspirin EC 81 MG] 81 mg PO DAILY #30 tab Amox/Clavulanate [Augmentin 875-125 Tab] 1 each PO BID #14 tab Furosemide [Lasix*] 40 mg PO BIDL #35 tab Diet: AHA Activity: Ad palak Followup: NONE,NONE [Primary Care Provider] - Flako Valencia MD [ACTIVE - CAN ADMIT] - 1 Week Time spent managing pt's care (in minutes): 36
[2022-10-26] MEDS ORDERED: FUROSEMIDE 40 MG TABLET PO SCH (17:00)
--- NOTE | 2022-10-26 19:07 | EKG ---
Test Date: 2022-10-25 Test Time: 20:46:44 Coat Operator Insulator: HB MEASUREMENT RESULTS: Intervals: Rate: 90 [place]: QRSD: 92 QT: 366 QTc: 447 [place]: P: OK: QRS: 87 T: 67 INTERPRETIVE STATEMENTS: Atrial fibrillation Incomplete right bundle branch block ST & T wave abnormality, consider anterolateral ischemia or digitalis effect Abnormal ECG Compared to ECG 10/24/2022 07:48:51 Incomplete right bundle-branch block now present ST (T wave) deviation now present Sinus rhythm no longer present Atrial premature complex(es) no longer present Right-axis deviation no longer present T-wave abnormality no longer present Possible ischemia still present Electronically Signed On 10-26-22 19:06:32 GENETIC TECHNOLOGIST by Flako Valencia
--- NOTE | 2022-10-26 19:09 | EKG ---
Test Date: 2022-10-24 Test Time: 07:47:17 Gummed Tape Press Operator: JAMAAL MEASUREMENT RESULTS: Intervals: Rate: 84 NE: 186 QRSD: 94 QT: 374 QTc: 441 [place]: P: 92 NE: 186 QRS: 97 T: 34 INTERPRETIVE STATEMENTS: Normal sinus rhythm Rightward axis Pulmonary disease pattern T wave abnormality, consider anterior ischemia Abnormal ECG Compared to ECG 04/28/2021 13:56:23 Right-axis deviation now present Sinus bradycardia no longer present T-wave abnormality still present Possible ischemia still present Electronically Signed On 10-26-22 19:08:17 SCUBA DIVER by Flako Valencia
--- NOTE | 2022-10-28 08:11 | ECHO ---
HEIGHT: 5 ft 10 in WEIGHT: 185 lb 0 oz DATE OF STUDY: 10/24/[address]: Abdirizak Acevedo NP 2-DIMENSIONAL: YES M.MODE: YES DOPPLER: YES COLOR FLOW: YES TDS: NO PORTABLE: YES DEFINITY: NO BUBBLE STUDY: NO DIAGNOSIS: DYSPNEA CARDIAC HISTORY: CATHERIZATION: SURGERY: PROSTHETIC VALVE: PACEMAKER: MEASUREMENTS (cm) DIASTOLIC (NORMALS) SYSTOLIC (NORMALS) IVSd 1.1 (0.6-1.2) LA Diam 4.1 (1.9-4.0) LVEF 67% LVIDd 4.5 (3.5-5.7) LVIDs 2.8 (2.0-3.5) %FS 37% LVPWd 1.3 (0.6-1.2) Ao Diam 3.3 (2.0-3.7) 2 DIMENSIONAL ASSESSMENT: RIGHT ATRIUM: ENLARGED LEFT ATRIUM: ENLARGED RIGHT VENTRICLE: NORMAL LEFT VENTRICLE: NORMAL TRICUSPID VALVE: MILD TRICUSPID REGURGITATION MITRAL VALVE: MILD MITRAL REGURGITATION PULMONIC VALVE: MILD PULMONIC INSUFFICIENCY AORTIC VALVE: NORMAL PERICARDIAL EFFUSION: NONE AORTIC ROOT: NORMAL LEFT VENTRICULAR WALL MOTION: NORMAL. DOPPLER/COLOR FLOW: SEE BELOW. COMMENTS: 1. NORMAL LEFT VENTRICULAR EJECTION FRACTION 55-60% WITH NORMAL WALL MOTION. 2. BI-ATRIAL ENLARGEMENT. 3. MILD TRICUSPID REGURGITATION 4. MODERATE PULMONIC INSUFFIENCY. 5. MILD MITRAL REGURGITATION 6. SEVERE PULMONARY HYPERTENSION WITH RIGHT VENTRICULAR SYSTOLIC PRESSURE GREATER THAN 80mmgH. TECHNOLOGIST: TATIANNA AREVALO
--- NOTE | 2022-10-29 16:10 | EKG ---
Test Date: 2022-10-24 Test Time: 07:48:51 Center Mgr: JAMAAL MEASUREMENT RESULTS: Intervals: Rate: 80 [place]: 172 QRSD: 92 QT: 378 QTc: 435 [place]: P: 62 [place]: 172 QRS: 95 T: 46 INTERPRETIVE STATEMENTS: Sinus rhythm with premature supraventricular complexes Rightward axis T wave abnormality, consider anterior ischemia Abnormal ECG Compared to ECG 10/24/2022 07:47:17 Atrial premature complex(es) now present T-wave abnormality still present Possible ischemia still present Electronically Signed On 10-29-22 16:07:24 INFIRMARY ATTENDANT by Flako Valencia
== END 2022-10-26 12:35 | disposition home or self-care (01) | DRG 602 ==
LOC: ER 06:39 → ERHOLD 10:58 → 2ND 15:36
PROVIDERS: ADMIT Internal Medicine; ATTEND Internal Medicine
DX: L03.116 Cellulitis of left lower limb (principal); I50.33 Acute on chronic diastolic (congestive) heart failure; I48.20 Chronic atrial fibrillation, unspecified; I11.0 Hypertensive heart disease with heart failure; L03.115 Cellulitis of right lower limb; G89.29 Other chronic pain; I25.10 Atherosclerotic heart disease of native coronary artery without angina pectoris; I25.2 Old myocardial infarction; T63.301A Toxic effect of unspecified spider venom, accidental (unintentional), initial encounter; Z95.5 Presence of coronary angioplasty implant and graft; Z98.52 Vasectomy status; Z91.030 Bee allergy status; Z79.899 Other long term (current) drug therapy; Z20.822 Contact with and (suspected) exposure to COVID-19
CPT/HCPCS: 36415; 71045; 71275; 80048; 80061; 80076; 80202; 81003; 82805; 83735; 83880; 84100; 84439; 84443; 84484; 85025; 85610; 85730; 87040; 87811; 93005; 93306; 93970; 99285; J0692; J1650; J1940; J3370; J7040; Q9967